=== PATIENT | female | born 1930 | race Caucasian/White ===

== ENCOUNTER 2016-08-05 13:07 | Inpatient (IN) | payer MEDICARE ==
[2016-08-05 13:54] LABS: ABSOLUTE EOSINOPHILS # (AUTO) 0.6 10^3/uL (0.0-0.6); ABSOLUTE LYMPHOCYTES (AUTO) 1.9 10^3/uL (0.5-4.7); ABSOLUTE MONOCYTES (AUTO) 1.2 10^3/uL (0.1-1.4); ABSOLUTE NEUT (AUTO) 5.3 10^3/uL (1.7-8.2); BASOPHILS % (AUTO) 0.4 % (0-2); EOSINOPHILS % (AUTO) 6.4 % (0-6); HEMATOCRIT 37.8 % (36.0-47.0); HEMOGLOBIN 12.2 g/dL (12.0-15.5); HGB HCT DIFFERENCE -1.2; LYMPHOCYTES % (AUTO) 21.4 % (13-45); MEAN CORPUSCULAR HEMOGLOBIN 32.4 pg (27.0-33.4); MEAN CORPUSCULAR HGB CONC 32.3 g/dL (32.0-36.0); MEAN CORPUSCULAR VOLUME 100 fl (80-97); MONOCYTES % (AUTO) 13.5 % (3-13); RED BLOOD COUNT 3.76 10^6/uL (3.72-5.28); RED CELL DISTRIBUTION WIDTH 15.5 % (11.5-14.0); SEGMENTED NEUTROPHILS % (AUTO) 58.3 % (42-78)
[2016-08-05 13:57] LABS: PARTIAL THROMBOPLASTIN TIME 24.1 SEC (23.5-35.8); PROTHROMBIN TIME 13.5 SEC (11.4-15.4)
--- NOTE | 2016-08-05 14:04 | ER Document Report ---
ED General - General Chief Complaint: Weakness Stated Complaint: WEAKNESS Time seen by provider: 13:59 Mode of Arrival: Medic Information source: Patient, Relative Notes: This is an 84-year-old female brought into the emergency room by EMS as a stroke alert. It is unclear when the patient was last seen normal. Another family member was to get her up at 8:30 to go to spiritism, she did not feel well enough to go. Later on when the family went to get her up for lunch at approximately 12:30, they noticed she was weak in the left upper extremity and falling to the left. EMS reports that the family was saying she was not using her left hand initially. EMS reports that she started using the left hand for them and the symptoms seem to be improving. Note: At baseline, patient normally ambulates with a walker. TRAVEL OUTSIDE OF THE [place] IN LAST 30 DAYS: No - HPI Onset: This morning Onset/Duration: Sudden Quality of pain: No pain Severity: None Pain Level: Denies Associated symptoms: denies: Chest pain, Fever, Shortness of breath Exacerbated by: Denies Relieved by: Denies Similar symptoms previously: Yes Recently seen / treated by doctor: No - Related Data Allergies/Adverse Reactions: No Known Allergies Allergy (Verified 11/27/15 19:41) Home Medications: Current Home Medications Aspirin [Aspirin EC] 81 mg PO DAILY 08/05/16 [History] Cyanocobalamin (Vitamin B-12) [Vitamin B-12] 2,500 mcg SL DAILY 08/05/16 [ History] Hydralazine HCl [Apresoline 50 mg Tablet] 100 mg PO BID 08/05/16 [History] Metoprolol Succinate 50 mg PO DAILY 08/05/16 [History] Phenytoin Sodium Extended [Dilantin 100 mg Capsule.er] 100 mg PO BID 08/05/16 [ History] Phenytoin Sodium Extended [Dilantin] 2 cap PO QHS 08/05/16 [History] Zolpidem Tartrate [Ambien Cr] 12.5 mg PO QHS 08/05/16 [History] Past Medical History - General Information source: Patient, Relative - Social History Smoking Status: Never Smoker Cigarette use (# per day): No Chew tobacco use (# tins/day): No Frequency of alcohol use: None Drug Abuse: None Lives with: Family Family History: Hypertension - Past Medical History Cardiac Medical History: Reports: Hx Hypercholesterolemia, Hx Hypertension, Hx Heart Murmur - Mitral valve prolapse Denies: Hx Congestive Heart Failure, Hx DVT, Hx Heart Attack, Hx Pulmonary Embolism Pulmonary Medical History: Denies: Hx Asthma, Hx COPD Neurological Medical History: Reports: Hx Seizures Endocrine Medical History: Denies: Hx Diabetes Mellitus Type 1, Hx Diabetes Mellitus Type 2, Hx Hyperthyroidism, Hx Hypothyroidism Malignancy Medical History: Reports: Hx Breast Cancer - Status post lumpectomy for same GI Medical History: Denies: Hx Cirrhosis, Hx Gastroesophageal Reflux Disease, Hx Hepatitis Musculoskeltal Medical History: Reports Hx Arthritis Psychiatric Medical History: Reports: Hx Anxiety, Hx Dementia, Hx Depression Infectious Medical History: Denies: Hx Hepatitis Past Surgical History: Reports: Hx Breast Surgery, Hx Hysterectomy, Other - Lumpectomy for breast carcinoma. Excision of facial skin lesions. - Immunizations Hx Diphtheria, Pertussis, Tetanus Vaccination: Yes - 2009 Hx Pneumococcal Vaccination: 03/22/16 Review of Systems - Review of Systems Constitutional: denies: Chills, Fever EENT: No symptoms reported Cardiovascular: No symptoms reported Respiratory: No symptoms reported Gastrointestinal: No symptoms reported Genitourinary: No symptoms reported Female Genitourinary: No symptoms reported Musculoskeletal: No symptoms reported Skin: No symptoms reported Hematologic/Lymphatic: No symptoms reported Neurological/Psychological: See HPI Physical Exam - Vital signs Vitals: Pulse Resp BP Pulse Ox 84 20 138/58 H 97 08/05/16 13:10 08/05/16 13:10 08/05/16 13:10 08/05/16 13:10 Notes: Physical exam: GENERAL: 86-year-old female, alert and oriented 3, no acute distress HEAD: Atraumatic, normocephalic. EYES: Pupils equal round and reactive to light, extraocular movements intact, sclera anicteric, conjunctiva are normal. ENT: TMs normal, nares patent, oropharynx clear without exudates. Moist mucous membranes. NECK: Normal range of motion, supple without lymphadenopathy or JVD. LUNGS: Breath sounds clear to auscultation bilaterally and equal. No wheezes rales or rhonchi. HEART: Regular rate and rhythm without murmurs, rubs or gallops. ABDOMEN: Soft, nontender, normoactive bowel sounds. No guarding, no rebound. No masses appreciated. EXTREMITIES: Normal range of motion, no pitting or edema. No clubbing or cyanosis. NEUROLOGICAL: Cranial nerves II through XII grossly intact. 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 She is able to describe the picture, her speech clarity is good, there is no extinction. NIH score is 5 PSYCH: Normal mood, normal affect. SKIN: Warm, Dry, normal turgor, no rashes or lesions noted. Course - Re-evaluation Re-evalutation: 08/05/16 14:04 Note: Patient is not a candidate for thrombolytics based upon improvement of symptoms and at time of onset that does not appear to be within the last 3 hours. In fact, it is very difficult to actually know what the time of onset was. I've discussed the risks of such treatment with the family and advised them that it would be too risky for little benefit. They seem to be satisfied with this. - Vital Signs Vital signs: Temp Pulse Resp BP Pulse Ox 97.7 F 71 20 114/80 97 08/05/16 22:06 08/05/16 22:06 08/05/16 22:06 08/05/16 22:06 08/05/16 22:06 - Laboratory Result Diagrams: 08/05/16 13:37 08/05/16 13:37 Laboratory results interpreted by me: 08/05/16 08/05/16 13:37 13:37 MCV 100 H RDW 15.5 H Monocytes % 13.5 H Eosinophils % 6.4 H Sodium 146.6 H BUN 28 H Est GFR (Non-Af Amer) 52 L Glucose 184 H AST 37 H - Diagnostic Test Radiology reviewed: Image reviewed, Reports reviewed - CT reveals small vessel disease, no acute stroke or bleed - EKG Interpretation by Me Rate: Normal Rhythm: NSR - EKG shows normal sinus rhythm with a ventricular rate of 72, no acute ST-T wave changes Critical Care Note - Critical Care Note Total time excluding time spent on procedures (mins): 60 Discharge - Discharge Clinical Impression: acute stroke Condition: Serious Disposition: ADMITTED INPATIENT Admitting Provider: Hospitalist - Dr. Simpson on Unit Admitted: Telemetry
[2016-08-05 14:07] LABS: ALANINE AMINOTRANSFERASE 52 U/L (9-52); ALKALINE PHOSPHATASE 87 U/L (38-126); ANION GAP 13 (5-19); ASPARTATE AMINO TRANSFERASE 37 U/L (14-36); BILIRUBIN,TOTAL 0.2 mg/dL (0.2-1.3); BLOOD UREA NITROGEN 28 mg/dL (7-20); CALCIUM 9.6 mg/dL (8.4-10.2); CARBON DIOXIDE 28 mmol/L (22-30); CHLORIDE 106 mmol/L (98-107); CREATINE KINASE 58 U/L (30-135); CREATININE RESULT 1.01 mg/dL (0.52-1.25); GLUCOSE 184 mg/dL (75-110); POTASSIUM 4.1 mmol/L (3.6-5.0); SODIUM 146.6 mmol/L (137-145); TOTAL PROTEIN 7.2 g/dL (6.3-8.2)
[2016-08-05 14:41] LABS: CREATINE KINASE MB 1.14 ng/mL (<4.55); TROPONIN I < 0.012 ng/mL
[2016-08-05] MEDS ORDERED: ACETAMINOPHEN 650 MG SUPP.RECT PR PRN (17:23)
[2016-08-05] MEDS ORDERED: ONDANSETRON HCL INJ/PF 4 MG/2 ML SDV IV PRN (17:23)
[2016-08-05] MEDS ORDERED: ASPIRIN 300 MG SUPP, RECTAL PR SCH (17:30)
--- NOTE | 2016-08-05 17:56 | PDOC H&P ---
History of Present Illness Admission Date/PCP: 08/05/16 17:16 DELISA MCLEAN Patient complains of: Left-sided weakness History of Present Illness: GISELLE PUTNAM is a 86 year old female with prior history of stroke in the past as well as hypertension, hyperlipidemia, seizure disorder, mitral valve prolapse , dementia brought to the emergency room because all left-sided weakness. The patient is unable to provide history due to underlying cognitive dysfunction. Information obtained from the family was at bedside. Patient apparently was unable to get up in bed early this morning due to weakness. Family went to restorationist and when they came back patient was noted to have left-sided weakness and falling on her left side. There is no reported slurring of speech but patient has choking which she had chronically for a while. No facial symmetry reported. No seizure episode was noted. The patient was brought to the emergency room for evaluation. CT scan of the brain did not reveal any acute abnormality. Systolic blood pressures greater than 190. The patient was then referred for admission. When the patient was asked she reports she is fine and wanted to go home. She voiced no complaints. Due to underlying dementia, patient is very unreliable. Past Medical History Cardiac Medical History: Reports: Hyperlipidema, Hypertension, Heart Murmur - Mitral valve prolapse Denies: Congestive Heart Failure, DVT, Myocardial Infarction, Pulmonary Embolism Pulmonary Medical History: Denies: Asthma, Chronic Obstructive Pulmonary Disease (COPD) Neurological Medical History: Reports: Seizures Endocrine Medical History: Denies: Diabetes Mellitus Type 1, Diabetes Mellitus Type 2, Hyperthyroidism, Hypothyroidism Malignancy Medical History: Reports: Breast Cancer - Status post lumpectomy for same GI Medical History: Denies: Cirrhosis, Gastroesophageal Reflux Disease, Hepatitis Musculoskeltal Medical History: Reports: Arthritis Psychiatric Medical History: Reports: Dementia, Depression Past Surgical History Past Surgical History: Reports: Hysterectomy, Other - Lumpectomy for breast carcinoma. Excision of facial skin lesions. Social History Lives with: Family Smoking Status: Never Smoker Frequency of Alcohol Use: None Hx Recreational Drug Use: No Drugs: None Hx Prescription Drug Abuse: No Family History Family History: Hypertension Parental Family History Reviewed: Yes Children Family History Reviewed: Yes Sibling(s) Family History Reviewed.: Yes Medication/Allergy Home Medications: Donepezil HCl 5 mg PO QHS 06/14/15 Escitalopram Oxalate 10 mg PO DAILY 06/14/15 Memantine HCl [Namenda 10 mg Tablet] 10 mg PO BID 06/14/15 Nifedipine [Procardia XL 60 mg Tablet] 60 mg PO DAILY 06/14/15 Atorvastatin Calcium [Lipitor 20 mg Tablet] 20 mg PO QHS #30 tablet 06/21/15 Cyanocobalamin (Vitamin B-12) [Vitamin B-12 1000 mcg Tablet] 1,000 mcg PO [id number] 08/05/16 Cyanocobalamin (Vitamin B-12) [Vitamin B-12] 2,500 mcg PO DAILY 08/05/16 Hydralazine HCl [Apresoline 50 mg Tablet] 100 mg PO BID 08/05/16 Metoprolol Succinate 50 mg PO DAILY 08/05/16 Phenytoin Sodium Extended [Dilantin 100 mg Capsule.er] 100 mg PO BID 08/05/16 Phenytoin Sodium Extended [Dilantin] 1 cap PO BID 08/05/16 Allergies/Adverse Reactions: No Known Allergies Allergy (Verified 11/27/15 19:41) Review of Systems ROS unobtainable: Due to mental status - I ordered an provided by the family at bedside no other noted complaints. Patient is ambulating with assistance with a walker at baseline. Physical Exam Vital Signs: Temp Pulse Resp BP Pulse Ox 97.8 F 69 20 191/68 H 97 08/05/16 16:10 08/05/16 16:11 08/05/16 16:11 08/05/16 16:11 08/05/16 16:11 General appearance: PRESENT: no acute distress, cooperative, obese Head exam: PRESENT: atraumatic, normocephalic Eye exam: PRESENT: conjunctival injection - Mild bilateral no drainage however. , EOMI, PERRLA - Sluggish bilateral, other - Arcus senilis Ear exam: PRESENT: normal external ear exam. ABSENT: drainage Mouth exam: PRESENT: moist, neck supple, tongue midline Throat exam: ABSENT: post pharyngeal erythema, tonsillar erythema, tonsillar exudate Neck exam: ABSENT: carotid bruit, JVD, thyromegaly Respiratory exam: PRESENT: clear to auscultation martita - Anteriorly, unlabored. ABSENT: crackles, rhonchi, wheezes Cardiovascular exam: PRESENT: RRR, systolic murmur - Faint 2/6 in the left sternal border. ABSENT: diastolic murmur, gallop, tachycardia Pulses: PRESENT: normal dorsalis pedis pul Vascular exam: PRESENT: normal capillary refill GI/Abdominal exam: PRESENT: normal bowel sounds, soft. ABSENT: distended, mass , organolmegaly, tenderness Rectal exam: PRESENT: deferred Extremities exam: PRESENT: +1 edema Neurological exam: PRESENT: alert, awake, CN II-XII grossly intact, motor sensory deficit - Mild weakness about 4 minus over 5 both left upper and lower extremity.. ABSENT: oriented to person, oriented to place, oriented to time, oriented to situation Psychiatric exam: PRESENT: anxious - Slightly Focused psych exam: ABSENT: restlessness Skin exam: PRESENT: dry, warm. ABSENT: cyanosis, jaundice Results Impressions: Chest X-Ray 08/05/16 13:13 IMPRESSION: NO ACUTE RADIOGRAPHIC FINDING IN THE CHEST. Head CT 08/05/16 13:13 IMPRESSION: CHRONIC CHANGES OF ATROPHY AND MICROVASCULAR ISCHEMIA. NO ACUTE PROCESS. Assessment & Plan - Diagnosis (1) CVA (cerebral vascular accident) Qualifiers: CVA mechanism: occlusion Precerebral and cerebral artery: unspecified cerebral artery Qualified Code(s): I63.50 - Cerebral infarction due to unspecified occlusion or stenosis of unspecified cerebral artery Is this a current diagnosis for this admission?: Yes (2) Hyperglycemia Is this a current diagnosis for this admission?: Yes (3) Reactive airway disease Qualifiers: Asthma severity: unspecified severity Asthma complication type: uncomplicated Qualified Code(s): J45.909 - Unspecified asthma, uncomplicated Is this a current diagnosis for this admission?: Yes (4) Uncontrolled hypertension Is this a current diagnosis for this admission?: Yes (5) Dementia Qualifiers: Dementia type: unspecified type Dementia behavioral disturbance: without behavioral disturbance Qualified Code(s): F03.90 - Unspecified dementia without behavioral disturbance Is this a current diagnosis for this admission?: Yes (6) Mitral valve prolapse Is this a current diagnosis for this admission?: Yes (7) Anemia Qualifiers: Anemia type: B12 deficiency Vitamin B12 deficiency anemia type: unspecified B12 deficiency Qualified Code(s): D51.9 - Vitamin B12 deficiency anemia, unspecified Is this a current diagnosis for this admission?: Yes (8) Hyperlipidemia Qualifiers: Hyperlipidemia type: unspecified Qualified Code(s): E78.5 - Hyperlipidemia, unspecified Is this a current diagnosis for this admission?: Yes (9) Seizure disorder Is this a current diagnosis for this admission?: Yes (10) Anxiety Is this a current diagnosis for this admission?: Yes - Time Time Spent: 50 to 70 Minutes Anticipated discharge: SNF Within: within 72 hours - Inpatient Certification Based on my medical assessment, after consideration of the patient's comorbidities, presenting symptoms, or acuity I expect that the services needed warrant INPATIENT care.: Yes I certify that my determination is in accordance with my understanding of Medicare's requirements for reasonable and necessary INPATIENT services [42 CFR 412.3e].: Yes Medical Necessity: Significant Comorbidiites Make Outpatient Treatment Too Risky , Need Close Monitoring Due to Risk of Patient Decompensation, Need for Neurological Checks Post Hospital Care: D/C Blending Machine Feeder Documentation - Plan Summary Plan Summary: The patient will be admitted to telemetry. We will obtain MRI of the brain. Physical therapy and speech therapy would be instituted. I will keep the patient nothing by mouth pending swallowing about. Reportedly she failed swallowing screen in the emergency room. We will begin aspirin suppositories. As needed hydralazine and labetalol will be given for systolic blood pressure greater than 180. Supplemental oxygen will be given. DVT prophylaxis with Lovenox will be made. We will obtain fasting lipids as well as hemoglobin A1c. Further testing depends on initial evaluation as outlined above.
--- NOTE | 2016-08-05 18:34 | EKG REPORT ---
SEVERITY:- NORMAL ECG - SINUS RHYTHM : Confirmed by: Kiana Chan MD 05-Aug-2016 18:33:56
[2016-08-05] MEDS ORDERED: ASPIRIN 300 MG SUPP, RECTAL PR ONE (19:45)
[2016-08-05] MEDS: PHENYTOIN SODIUM INJ/PF 100 MG/2 ML SDV IV SCH (22:44)
[2016-08-05] MEDS: HYDRALAZINE HCL INJ/PF 20 MG/1 ML SDV IV PRN (23:01)
[2016-08-05] MEDS: FAMOTIDINE 20 MG TABLET PO SCH (23:05)
[2016-08-05 23:34] LABS: APPEARANCE,URINE SLIGHTLY-CLOUDY; BILIRUBIN,URINE NEGATIVE (NEGATIVE); GLUCOSE, URINE NEGATIVE (NEGATIVE); KETONES,URINE NEGATIVE (NEGATIVE); LEUKOCYTE ESTERASE,URINE TRACE (NEGATIVE); NITRITE,URINE POSITIVE (NEGATIVE); PROTEIN,URINE 30 mg/dL (NEGATIVE); URINE SPECIFIC GRAVITY 1.023; UROBILINOGEN,URINE NEGATIVE mg/dL (<2.0)
[2016-08-06] MEDS: PHENYTOIN SODIUM INJ/PF 100 MG/2 ML SDV IV SCH ×2 (06:40→13:13)
[2016-08-06] MEDS: HYDRALAZINE HCL INJ/PF 20 MG/1 ML SDV IV PRN (06:40)
[2016-08-06 06:51] LABS: ANION GAP 12 (5-19); BLOOD UREA NITROGEN 21 mg/dL (7-20); CARBON DIOXIDE 28 mmol/L (22-30); CHLORIDE 105 mmol/L (98-107); CHOLESTEROL 165.81 mg/dL (0-200); CREATININE RESULT 0.77 mg/dL (0.52-1.25); Direct HDL 51 mg/dL (>40); GLUCOSE 120 mg/dL (75-110); POTASSIUM 3.8 mmol/L (3.6-5.0); SODIUM 144.6 mmol/L (137-145); TRIGLYCERIDES 80 mg/dL (<150)
[2016-08-06 07:02] LABS: DIRECT LDL 96 mg/dL (<100)
[2016-08-06] MEDS ORDERED: LORAZEPAM 1 MG TABLET PO PRN (09:04)
[2016-08-06] MEDS ORDERED: ASPIRIN 300 MG SUPP, RECTAL PR SCH (10:00)
[2016-08-06] MEDS: ENOXAPARIN SODIUM INJ 40 MG/0.4 ML DISP.SYRIN SUBCUT SCH (10:49)
[2016-08-06] MEDS: FAMOTIDINE 20 MG TABLET PO SCH ×2 (10:52→22:41)
[2016-08-06] MEDS ORDERED: LORAZEPAM INJ 2 MG/1 ML VIAL ONE (11:18)
--- NOTE | 2016-08-06 11:48 | Physician Advisory Note ---
Physician Advisor ProgressNote .: [facility] to the [facility], I have reviewed the medical record for this patient. Physician Advisor Statement: Please consider documenting, if you agree: 1. "Acute Rt-sided thrombotic [or ...] MCA artery CVA with cerebral infarction , with Lt nondominant hemiparesis, ___ [resolved or improved or persistent] " 2. "Acute mild hypernatremia, likely due to intravascular volume depletion" 3. Do you believe pt had "hypertensive emergency" or "hypertensive urgency" present? - If pt has sBP 180+ &/or dBP 110+ , without associated sx, then "HTNive urgency" is now the accepted term. If pt has sBP 180+ &/or dBP 110+ , & sx of possible organ damage, such as CHAN, CP , SOB, acute exac of CHF, acute neuro sx ..., then "Hypertensive emergency" is now the accepted term. Status: Pt w/CVA/Lt hemiparesis, dysphagia that failed bedside swallow both in ED & again for ST today. Remains NPO, needing further evaluation of swallow with MBSS - . BPs as high as 198/60 on 08/06, after ranging 114/80 - 204/64 on 08/05, so not hemodynamically stable. Ordered for tele monitoring, IV Dilantin, MN ASA, neuro checks, I/Os, aspiration precautions, O2, continuous pulse ox monitoring, NPO, PRNs IV for BP. Not safe for d/c from hospital yet, likely to need at least a 2nd MN of evaluation, monitoring, & care. Meds being given parenterally only. May need IVF shortly if not able to take po's safely. Appropriate for Inpt status. CK
[2016-08-06] MEDS ORDERED: LORAZEPAM INJ 2 MG/1 ML VIAL IV PRN (11:55)
--- NOTE | 2016-08-06 12:55 | ST Inp Modified Barium Swallow ---
Medical Diagnosis - Medical Diagnoses Medical Diagnosis Description & ICD-10 Code(s): s/sx of aspiration - ICD-10 Tx Diagnosis Coding (1) Dysphagia, oropharyngeal phase ICD-10 Code(s): R13.12 - DYSPHAGIA, OROPHARYNGEAL PHASE Inpatient MBS - General Date: 08/06/16 Date of Onset: 08/05/16 - History History Obtained From: Patient -: Medical - CVA, left sided weakness, choking, reactive airway disease, uncontrolled HTN, anxiety. currently NPO, chest xray WNL. Head CT shows chronic changes, no acute process. Failed nursing swallow screen. Previous MBSS completed 06/21/15 showed delayed swallow and mild residuals. PMHx: CVA, HTN, seizure disorder, mitral valve prolapse, dementia, breast CA, arthritis, depression. Medications: Medications Reviewed Allergies: Refer to medical record - Subjective Current Nutritional Means: NPO Current PO Diet: N/A (NPO) Current Symptoms: Coughing Pain: 0/5 - Objective Assessment: Upright, Left Lateral - Food Trials Food Trials Used: Thin liquids, [place] thick liquids, Pureed, Soft solids The Patient: fed by ST - Assessment Labial Function: Impaired - impaired seal Lingual Function: Within Functional Limits Mandibular Function: Impaired - weak Dentition: Partial Velo-Pharyngeal Function: Unremarkable Laryngeal Function: Volitional Cough, Volitional Swallow - Pharyngeal Stage Initiation of Pharyngeal Stage: Delayed Reflex Delay Time (seconds): 2 Decreased Laryngeal Elevation: Yes - mild Reduced Pressure Generation: Yes - mild Reduced Tongue Base Retraction: Yes - mild Pre-Swallowing Pooling in Valleculae: Moderate - on thin and nectar Pre-Swallowing Pooling in Pyriforms: Moderate - on thin and nectar Reduced Thyro-Hyiod Approximation: Yes - mild Reduced Epiglottic Excursion: No Reduced Pharyngeal Peristalsis: No Post Swallow Residuals in Valleculae: None Post Swallow Residuals in Pyriforms: Mild - trace on thin, trace-mild on nectar - Impression/Summary Laryngeal Penetration: Yes - on nectar, Flash, Silent, during swallow Tracheal Aspiration: no Patient Presents With: Oral-Pharyngeal dysph. - mild-moderate Risk of Aspiration: Moderate - mild-moderate - Recommendations NPO: no Solid Diet Recommendations: Mechanical Soft, Ground Meat Liquid Diet Recommendations: Thin Strict Aspitarion Precautions: Yes Dysphagia Therapy with RADAR MECHANIC: No - due to cognitive status Recommended Techniques: Fully Upright During Meal, Med Crushed in Applesauce - if able, Small Bites and Sips, Alternate Bites/Sips Supervision: requires assistance Other Recommendations: 1) DIET: recommend mech soft ground meats and thin liquids- NO straws. 2) Aspiration precautions. 3) Alternate bites and sips to aid in clearing residuals. 4) Pills crushed, if able. SUMMARY: Premature spillage on thin and nectar to level of pyriforms. No aspiration observed during study, however penetration of nectar seen. Increased residuals of nectar in pharynx when compared to thin liquids. Trace to mild residuals of soft solids on base of tongue, alternating bites and sips observed to aid in clearing residuals. ST contacted MD regarding recommendations, physician in agreement and provided ST with telephone order for diet. ST to sign off at this time. - Time Total Time: 15 Total Timed Minutes: 0 ST F.L. Impairment Category - Rationale Based On Rationale Based On: Clin Find., Obj Measures - Swallowing Current G8996: CJ 20-39% Impaired Goal G8997: CJ 20-39% Impaired Discharge G8998: CJ 20-39% Impaired
--- NOTE | 2016-08-06 13:46 | PDOC PROGRESS REPORT ---
Subjective Progress Note for:: 08/06/16 Subjective:: Intermittent swallowing difficulty but able to tolerate a dysphagia diet after modified barium swallow study. Brain MRI positive for acute stroke. Left upper extremity weakness improved. Left lower extremity weakness about the same. No reported new weakness. No chills or fever. No chest pain denies any nausea or vomiting. Physical Exam Vital Signs: Temp Pulse Resp BP Pulse Ox 97.3 F 78 20 135/89 H 95 08/06/16 13:23 08/06/16 13:23 08/06/16 13:23 08/06/16 13:23 08/06/16 13:23 Pulse Oximeter Continuous Start: 08/05/16 17: 26 Freq: RTQ4 Status: Active Document 08/06/16 08:30 [facility] [place]Rec: 08/06/16 11:02 [facility] [email or web address] Pulse Oximetry Assessment Oxygen Saturation (92-100) 97 Oxygen Delivery Method Room Air Fraction of Inspired Oxygen (FIO2) 21 Equipment Usage Equipment in Use Continuous SpO2 Machine # N 3 Intake & Output 08/05/16 08/06/16 08/07/16 06:59 06:59 06:59 Intake Total 0 Output Total 775 300 Balance -775 -300 Weight 62.7 kg General appearance: PRESENT: no acute distress, cooperative Head exam: PRESENT: normocephalic Eye exam: PRESENT: conjunctival injection, EOMI Mouth exam: PRESENT: moist, neck supple Neck exam: ABSENT: JVD Respiratory exam: PRESENT: clear to auscultation martita Cardiovascular exam: PRESENT: RRR. ABSENT: gallop GI/Abdominal exam: PRESENT: hypoactive bowel sounds, soft. ABSENT: distended, tenderness Extremities exam: PRESENT: other - Trace edema pretibial bilateral Neurological exam: PRESENT: alert, awake, other - Left upper/lower extremity weakness of 4- over 5 Skin exam: PRESENT: dry, warm. ABSENT: cyanosis Results Laboratory Results: 08/06/16 06:15 08/05/16 08/06/16 22:20 06:15 Sodium 144.6 Potassium 3.8 Chloride 105 Carbon Dioxide 28 Anion Gap 12 BUN 21 H Creatinine 0.77 Est GFR ( Amer) > 60 Est GFR (Non-Af Amer) > 60 Glucose 120 H Calcium 9.0 Triglycerides 80 Cholesterol 165.81 LDL Cholesterol Direct 96 VLDL Cholesterol 16.0 HDL Cholesterol 51 Urine Color YELLOW Urine Appearance SLIGHTLY-CLOUDY Urine pH 5.0 Ur Specific [place] 1.023 Urine Protein 30 H Urine Glucose (UA) NEGATIVE Urine Ketones NEGATIVE Urine Blood SMALL H Urine Nitrite POSITIVE H Ur Leukocyte Esterase TRACE H Urine WBC (Auto) 2 Urine RBC (Auto) 4 Impressions: Chest X-Ray 08/05/16 13:13 IMPRESSION: NO ACUTE RADIOGRAPHIC FINDING IN THE CHEST. Head CT 08/05/16 13:13 IMPRESSION: CHRONIC CHANGES OF ATROPHY AND MICROVASCULAR ISCHEMIA. NO ACUTE PROCESS. Carotid Doppler Study 08/06/16 00:00 IMPRESSION: NO HEMODYNAMICALLY SIGNIFICANT STENOSIS. Head MRI 08/06/16 09:17 IMPRESSION: Acute, nonhemorrhagic infarct right MCA distribution. Assessment & Plan - Diagnosis (1) CVA (cerebral vascular accident) Qualifiers: CVA mechanism: occlusion Precerebral and cerebral artery: unspecified cerebral artery Qualified Code(s): I63.50 - Cerebral infarction due to unspecified occlusion or stenosis of unspecified cerebral artery Is this a current diagnosis for this admission?: Yes (2) Hyperglycemia Is this a current diagnosis for this admission?: Yes (3) Reactive airway disease Qualifiers: Asthma severity: unspecified severity Asthma complication type: uncomplicated Qualified Code(s): J45.909 - Unspecified asthma, uncomplicated Is this a current diagnosis for this admission?: Yes (4) Uncontrolled hypertension Is this a current diagnosis for this admission?: Yes (5) Dementia Qualifiers: Dementia type: unspecified type Dementia behavioral disturbance: without behavioral disturbance Qualified Code(s): F03.90 - Unspecified dementia without behavioral disturbance Is this a current diagnosis for this admission?: Yes (6) Mitral valve prolapse Is this a current diagnosis for this admission?: Yes (7) Anemia Qualifiers: Anemia type: B12 deficiency Vitamin B12 deficiency anemia type: unspecified B12 deficiency Qualified Code(s): D51.9 - Vitamin B12 deficiency anemia, unspecified Is this a current diagnosis for this admission?: Yes (8) Hyperlipidemia Qualifiers: Hyperlipidemia type: unspecified Qualified Code(s): E78.5 - Hyperlipidemia, unspecified Is this a current diagnosis for this admission?: Yes (9) Seizure disorder Is this a current diagnosis for this admission?: Yes (10) Anxiety Is this a current diagnosis for this admission?: Yes - Time Time Spent with patient: 25-34 minutes - Plan Summary Plan Summary: We will resume oral medications. We will continue to hold antihypertensive medications however. We will add Aggrenox and begin diet as per speech therapy recommendation. Physical therapy and consult party planner for subacute rehabilitation. We will resume antiepileptic medications as well and discontinued the intravenous form.
[2016-08-06] MEDS: PHENYTOIN SODIUM EXTENDED 100 MG CAPSULE PO SCH (18:07)
[2016-08-06] MEDS: LABETALOL HCL INJ 20 MG/4 ML DISP.SYRIN IV PRN (20:37)
[2016-08-06] MEDS ORDERED: PHENYTOIN SODIUM PO SCH (22:00)
[2016-08-06] MEDS: ASPIRIN/DIPYRIDAMOLE 25-200 MG 1 CAP.SR CPMP.12HR PO SCH (22:40)
[2016-08-06] MEDS: DONEPEZIL HCL 5 MG TABLET PO SCH (22:42)
[2016-08-06] MEDS: ATORVASTATIN CALCIUM 20 MG TABLET PO SCH (22:42)
[2016-08-07] MEDS: FAMOTIDINE 20 MG TABLET PO SCH ×2 (09:19→23:12)
[2016-08-07] MEDS: ENOXAPARIN SODIUM INJ 40 MG/0.4 ML DISP.SYRIN SUBCUT SCH (09:19)
[2016-08-07] MEDS: PHENYTOIN SODIUM EXTENDED 100 MG CAPSULE PO SCH ×2 (09:19→18:40)
[2016-08-07] MEDS: ASPIRIN/DIPYRIDAMOLE 25-200 MG 1 CAP.SR CPMP.12HR PO SCH ×2 (09:19→23:13)
[2016-08-07] MEDS: ASPIRIN 81 MG TABLET, ENT COATED PO SCH (09:19)
[2016-08-07] MEDS: LABETALOL HCL INJ 20 MG/4 ML DISP.SYRIN IV PRN (09:20)
--- NOTE | 2016-08-07 10:59 | PDOC PROGRESS REPORT ---
Subjective Progress Note for:: 08/07/16 Subjective:: Patient denies any complaints. Physical Exam Vital Signs: Temp Pulse Resp BP Pulse Ox 97.4 F 76 19 191/62 H 97 08/07/16 07:53 08/07/16 07:53 08/07/16 07:53 08/07/16 07:53 08/07/16 07:53 Pulse Oximeter Continuous Start: 08/05/16 17: 26 Freq: RTQ4 Status: Active Document 08/07/16 04:00 [facility] (Rec: 08/07/16 04:01 [facility] [email or web address]) Pulse Oximetry Assessment Equipment Usage Equipment Standby Continuous SpO2 Machine # [id number] Intake & Output 08/06/16 08/07/16 08/08/16 06:59 06:59 06:59 Intake Total 593 Output Total 775 1025 Balance -775 -432 Weight 62.7 kg 66.1 kg General appearance: PRESENT: no acute distress Eye exam: PRESENT: conjunctiva pink, other - Minimal purulent drainage Mouth exam: PRESENT: moist, tongue midline Neck exam: ABSENT: carotid bruit, JVD Respiratory exam: PRESENT: clear to auscultation martita. ABSENT: rales, rhonchi, wheezes Cardiovascular exam: PRESENT: RRR. ABSENT: diastolic murmur, rubs, systolic murmur GI/Abdominal exam: PRESENT: normal bowel sounds, soft. ABSENT: distended, guarding, mass, organolmegaly, rebound, tenderness Extremities exam: ABSENT: calf tenderness, clubbing, pedal edema Neurological exam: PRESENT: alert, awake, oriented to person, oriented to place , motor sensory deficit - Strength is 4 out of 5 in the left upper and lower extremity. Psychiatric exam: PRESENT: appropriate affect Skin exam: PRESENT: dry, intact, warm. ABSENT: cyanosis, rash Results Laboratory Results: 08/06/16 06:15 Impressions: Chest X-Ray 08/05/16 13:13 IMPRESSION: NO ACUTE RADIOGRAPHIC FINDING IN THE CHEST. Head CT 08/05/16 13:13 IMPRESSION: CHRONIC CHANGES OF ATROPHY AND MICROVASCULAR ISCHEMIA. NO ACUTE PROCESS. Carotid Doppler Study 08/06/16 00:00 IMPRESSION: NO HEMODYNAMICALLY SIGNIFICANT STENOSIS. Modified Barium Swallow 08/06/16 00:00 IMPRESSION: TRACE LARYNGEAL PENETRATION WITH THIN AND NECTAR THICK LIQUIDS. NO ASPIRATION SEEN. PLEASE SEE SPEECH PATHOLOGIST REPORT FOR OTHER FINDINGS AND RECOMMENDATIONS. Head MRI 08/06/16 09:17 IMPRESSION: Acute, nonhemorrhagic infarct right MCA distribution. Assessment & Plan - Diagnosis (1) CVA (cerebral vascular accident) Qualifiers: CVA mechanism: occlusion Precerebral and cerebral artery: unspecified cerebral artery Qualified Code(s): I63.50 - Cerebral infarction due to unspecified occlusion or stenosis of unspecified cerebral artery Is this a current diagnosis for this admission?: YesPlan: Patient continues to have minimal left-sided weakness now. The MRI does confirm the acute CVA. The patient is on Aggrenox. We'll continue physical therapy and await the family's decision on where to send her for rehabilitation. (2) HTN (hypertension) Qualifiers: Hypertension type: essential hypertension Qualified Code(s): I10 - Essential (primary) hypertension Is this a current diagnosis for this admission?: YesPlan: Blood pressure continues to remain high. Will add on Norvasc. (3) Hyperglycemia Is this a current diagnosis for this admission?: YesPlan: Blood sugars have been slightly high. We'll continue to monitor. (4) Reactive airway disease Qualifiers: Asthma severity: unspecified severity Asthma complication type: uncomplicated Qualified Code(s): J45.909 - Unspecified asthma, uncomplicated Is this a current diagnosis for this admission?: YesPlan: No evidence for wheezing today on exam. (5) Dementia Qualifiers: Dementia type: unspecified type Dementia behavioral disturbance: without behavioral disturbance Qualified Code(s): F03.90 - Unspecified dementia without behavioral disturbance Is this a current diagnosis for this admission?: Yes (6) Anxiety Is this a current diagnosis for this admission?: YesPlan: Stable. (7) B12 deficiency anemia Is this a current diagnosis for this admission?: YesPlan: Patient's hemoglobin is stable. (8) Mitral valve prolapse Is this a current diagnosis for this admission?: YesPlan: Asymptomatic. (9) Anemia Qualifiers: Anemia type: B12 deficiency Vitamin B12 deficiency anemia type: unspecified B12 deficiency Qualified Code(s): D51.9 - Vitamin B12 deficiency anemia, unspecified Is this a current diagnosis for this admission?: YesPlan: Patient has a history of vitamin B12 deficiency. Hemoglobin is stable. (10) Hyperlipidemia Qualifiers: Hyperlipidemia type: unspecified Qualified Code(s): E78.5 - Hyperlipidemia, unspecified Is this a current diagnosis for this admission?: YesPlan: Continue Lipitor. (11) Seizure disorder Is this a current diagnosis for this admission?: YesPlan: Continue Dilantin. The patient has not had any seizures. (12) Conjunctivitis Is this a current diagnosis for this admission?: YesPlan: We'll start Cipro eyedrops. - Time Time Spent with patient: 25-34 minutes - Inpatient Certification Medical Necessity: Need for Neurological Checks - Plan Summary Plan Summary: Awaiting placement in a halfway facility for rehabilitation.
[2016-08-07] MEDS ORDERED: CIPROFLOXACIN HCL 0.3% OPH OINTMENT 3.5 GM OU ONE (11:30)
[2016-08-07] MEDS ORDERED: AMLODIPINE BESYLATE 5 MG TABLET PO ONE (11:30)
[2016-08-07] MEDS: DONEPEZIL HCL 5 MG TABLET PO SCH (23:12)
[2016-08-07] MEDS: ATORVASTATIN CALCIUM 20 MG TABLET PO SCH (23:12)
[2016-08-07] MEDS: CIPROFLOXACIN HCL 0.3% OPH OINTMENT 3.5 GM OU SCH (23:45)
[2016-08-08 05:11] LABS: ABSOLUTE BASOPHILS # (AUTO) 0.1 10^3/uL (0.0-0.2); ABSOLUTE EOSINOPHILS # (AUTO) 0.6 10^3/uL (0.0-0.6); ABSOLUTE LYMPHOCYTES (AUTO) 1.9 10^3/uL (0.5-4.7); ABSOLUTE NEUT (AUTO) 5.3 10^3/uL (1.7-8.2); BASOPHILS % (AUTO) 0.6 % (0-2); EOSINOPHILS % (AUTO) 6.5 % (0-6); HEMATOCRIT 33.1 % (36.0-47.0); HEMOGLOBIN 11.2 g/dL (12.0-15.5); HGB HCT DIFFERENCE 0.5; LYMPHOCYTES % (AUTO) 21.7 % (13-45); MEAN CORPUSCULAR HEMOGLOBIN 33.2 pg (27.0-33.4); MEAN CORPUSCULAR HGB CONC 33.9 g/dL (32.0-36.0); MEAN CORPUSCULAR VOLUME 98 fl (80-97); MONOCYTES % (AUTO) 11.7 % (3-13); RED BLOOD COUNT 3.38 10^6/uL (3.72-5.28); RED CELL DISTRIBUTION WIDTH 14.5 % (11.5-14.0); SEGMENTED NEUTROPHILS % (AUTO) 59.5 % (42-78); WHITE BLOOD COUNT 8.9 10^3/uL (4.0-10.5)
[2016-08-08 05:26] LABS: ANION GAP 11 (5-19); BLOOD UREA NITROGEN 18 mg/dL (7-20); CALCIUM 9.4 mg/dL (8.4-10.2); CARBON DIOXIDE 25 mmol/L (22-30); CHLORIDE 104 mmol/L (98-107); CREATININE RESULT 0.86 mg/dL (0.52-1.25); GLUCOSE 120 mg/dL (75-110); POTASSIUM 3.8 mmol/L (3.6-5.0)
[2016-08-08] MEDS: ENOXAPARIN SODIUM INJ 40 MG/0.4 ML DISP.SYRIN SUBCUT SCH (08:50)
[2016-08-08] MEDS: PHENYTOIN SODIUM EXTENDED 100 MG CAPSULE PO SCH ×2 (10:40→22:54)
[2016-08-08] MEDS: ASPIRIN 81 MG TABLET, ENT COATED PO SCH (10:41)
[2016-08-08] MEDS: ASPIRIN/DIPYRIDAMOLE 25-200 MG 1 CAP.SR CPMP.12HR PO SCH ×2 (10:41→22:53)
[2016-08-08] MEDS: AMLODIPINE BESYLATE 5 MG TABLET PO SCH (10:41)
[2016-08-08] MEDS: CIPROFLOXACIN HCL 0.3% OPH OINTMENT 3.5 GM OU SCH ×2 (10:41→23:10)
[2016-08-08] MEDS: FAMOTIDINE 20 MG TABLET PO SCH ×2 (10:41→22:54)
--- NOTE | 2016-08-08 11:46 | PDOC PROGRESS REPORT ---
Subjective Progress Note for:: 08/08/16 Subjective:: Patient denies any complaints. Physical Exam Vital Signs: Temp Pulse Resp BP Pulse Ox 98.1 F 84 18 177/53 H 95 08/08/16 07:37 08/08/16 08:00 08/08/16 08:00 08/08/16 08:00 08/08/16 08:00 Pulse Oximeter Continuous Start: 08/05/16 17: 26 Freq: RTQ4 Status: Active Document 08/08/16 08:00 [facility] (Rec: 08/08/16 10:52 [facility] [email or web address]) Pulse Oximetry Assessment Oxygen Saturation (92-100) 94 Oxygen Delivery Method Room Air Fraction of Inspired Oxygen (FIO2) 21 Equipment Usage Equipment Discontinued Continuous SpO2 Machine # -- Intake & Output 08/07/16 08/08/16 08/09/16 06:59 06:59 06:59 Intake Total 593 3212 Output Total 1025 3775 Balance -432 -563 Weight 66.1 kg 66.5 kg General appearance: PRESENT: no acute distress, well-developed, well-nourished Eye exam: PRESENT: conjunctiva pink. ABSENT: scleral icterus Mouth exam: PRESENT: moist, tongue midline Neck exam: ABSENT: JVD Respiratory exam: PRESENT: clear to auscultation martita. ABSENT: rales, rhonchi, wheezes Cardiovascular exam: PRESENT: RRR. ABSENT: diastolic murmur, rubs, systolic murmur GI/Abdominal exam: PRESENT: normal bowel sounds, soft. ABSENT: distended, guarding, mass, organolmegaly, rebound, tenderness Extremities exam: ABSENT: calf tenderness, clubbing, pedal edema Neurological exam: PRESENT: alert, awake, oriented to person, oriented to place , oriented to time, oriented to situation, other - Strength is slightly decreased in the left upper and lower extremity. Psychiatric exam: PRESENT: other - Confused this morning. Skin exam: PRESENT: dry, intact, warm. ABSENT: cyanosis, rash Results Laboratory Results: 08/08/16 04:32 08/08/16 04:32 08/08/16 08/08/16 04:32 04:32 WBC 8.9 RBC 3.38 L Hgb 11.2 L Hct 33.1 L MCV 98 H MCH 33.2 MCHC 33.9 RDW 14.5 H Plt Count 168 Seg Neutrophils % 59.5 Lymphocytes % 21.7 Monocytes % 11.7 Eosinophils % 6.5 H Basophils % 0.6 Absolute Neutrophils 5.3 Absolute Lymphocytes 1.9 Absolute Monocytes 1.0 Absolute Eosinophils 0.6 Absolute Basophils 0.1 Sodium 140.0 Potassium 3.8 Chloride 104 Carbon Dioxide 25 Anion Gap 11 BUN 18 Creatinine 0.86 Est GFR ( Amer) > 60 Est GFR (Non-Af Amer) > 60 Glucose 120 H Calcium 9.4 Impressions: Chest X-Ray 08/05/16 13:13 IMPRESSION: NO ACUTE RADIOGRAPHIC FINDING IN THE CHEST. Head CT 08/05/16 13:13 IMPRESSION: CHRONIC CHANGES OF ATROPHY AND MICROVASCULAR ISCHEMIA. NO ACUTE PROCESS. Carotid Doppler Study 08/06/16 00:00 IMPRESSION: NO HEMODYNAMICALLY SIGNIFICANT STENOSIS. Modified Barium Swallow 08/06/16 00:00 IMPRESSION: TRACE LARYNGEAL PENETRATION WITH THIN AND NECTAR THICK LIQUIDS. NO ASPIRATION SEEN. PLEASE SEE SPEECH PATHOLOGIST REPORT FOR OTHER FINDINGS AND RECOMMENDATIONS. Head MRI 08/06/16 09:17 IMPRESSION: Acute, nonhemorrhagic infarct right MCA distribution. Assessment & Plan - Diagnosis (1) CVA (cerebral vascular accident) Qualifiers: CVA mechanism: occlusion Precerebral and cerebral artery: unspecified cerebral artery Qualified Code(s): I63.50 - Cerebral infarction due to unspecified occlusion or stenosis of unspecified cerebral artery Is this a current diagnosis for this admission?: YesPlan: Patient continues to have minimal left-sided weakness now. The MRI does confirm the acute CVA. The patient is on Aggrenox. We'll continue physical therapy and await the family's decision on where to send her for rehabilitation. (2) HTN (hypertension) Qualifiers: Hypertension type: essential hypertension Qualified Code(s): I10 - Essential (primary) hypertension Is this a current diagnosis for this admission?: YesPlan: Blood pressure continues to remain high. Norvasc was started yesterday. (3) Hyperglycemia Is this a current diagnosis for this admission?: YesPlan: Blood sugars have been slightly high. We'll continue to monitor. (4) Reactive airway disease Qualifiers: Asthma severity: unspecified severity Asthma complication type: uncomplicated Qualified Code(s): J45.909 - Unspecified asthma, uncomplicated Is this a current diagnosis for this admission?: YesPlan: No evidence for wheezing today on exam. (5) Dementia Qualifiers: Dementia type: unspecified type Dementia behavioral disturbance: without behavioral disturbance Qualified Code(s): F03.90 - Unspecified dementia without behavioral disturbance Is this a current diagnosis for this admission?: YesPlan: Patient is pleasantly confused. (6) Anxiety Is this a current diagnosis for this admission?: YesPlan: Stable. (7) B12 deficiency anemia Is this a current diagnosis for this admission?: YesPlan: Patient's hemoglobin is stable. (8) Mitral valve prolapse Is this a current diagnosis for this admission?: YesPlan: Asymptomatic. (9) Anemia Qualifiers: Anemia type: B12 deficiency Vitamin B12 deficiency anemia type: unspecified B12 deficiency Qualified Code(s): D51.9 - Vitamin B12 deficiency anemia, unspecified Is this a current diagnosis for this admission?: YesPlan: Patient has a history of vitamin B12 deficiency. Hemoglobin is stable. (10) Hyperlipidemia Qualifiers: Hyperlipidemia type: unspecified Qualified Code(s): E78.5 - Hyperlipidemia, unspecified Is this a current diagnosis for this admission?: YesPlan: Continue Lipitor. (11) Seizure disorder Is this a current diagnosis for this admission?: YesPlan: Continue Dilantin. The patient has not had any seizures. (12) Conjunctivitis Is this a current diagnosis for this admission?: YesPlan: Continue Cipro eyedrops. - Time Time Spent with patient: 25-34 minutes - Inpatient Certification Medical Necessity: Need for Neurological Checks - Plan Summary Plan Summary: Will be discharged to rehabilitation when a bed becomes available.
[2016-08-08] MEDS: ATORVASTATIN CALCIUM 20 MG TABLET PO SCH (22:54)
[2016-08-08] MEDS: DONEPEZIL HCL 5 MG TABLET PO SCH (22:54)
[2016-08-09] MEDS: ENOXAPARIN SODIUM INJ 40 MG/0.4 ML DISP.SYRIN SUBCUT SCH (08:45)
[2016-08-09] MEDS: HYDRALAZINE HCL INJ/PF 20 MG/1 ML SDV IV PRN (09:01)
[2016-08-09] MEDS: CIPROFLOXACIN HCL 0.3% OPH OINTMENT 3.5 GM OU SCH ×2 (10:38→22:56)
[2016-08-09] MEDS: PHENYTOIN SODIUM EXTENDED 100 MG CAPSULE PO SCH ×2 (10:38→22:56)
[2016-08-09] MEDS: ASPIRIN/DIPYRIDAMOLE 25-200 MG 1 CAP.SR CPMP.12HR PO SCH ×2 (10:38→22:56)
[2016-08-09] MEDS: AMLODIPINE BESYLATE 5 MG TABLET PO SCH (10:38)
[2016-08-09] MEDS: FAMOTIDINE 20 MG TABLET PO SCH ×2 (10:38→22:56)
[2016-08-09] MEDS: ASPIRIN 81 MG TABLET, ENT COATED PO SCH (10:38)
--- NOTE | 2016-08-09 14:19 | PDOC PROGRESS REPORT ---
Subjective Progress Note for:: 08/09/16 Subjective:: Patient denies any complaints. Physical Exam Vital Signs: Temp Pulse Resp BP Pulse Ox 97.2 F 108 H 20 167/60 H 96 08/09/16 11:36 08/09/16 11:36 08/09/16 11:36 08/09/16 11:36 08/09/16 11:36 Pulse Oximeter Continuous Start: 08/05/16 17: 26 Freq: Status: Active Document 08/09/16 08:40 [facility] (Rec: 08/09/16 08:41 [facility] [email or web address]) Pulse Oximetry Assessment Oxygen Saturation (92-100) 96 Oxygen Delivery Method Room Air Equipment Usage Equipment Discontinued Continuous SpO2 Machine # - Intake & Output 08/08/16 08/09/16 08/10/16 06:59 06:59 06:59 Intake Total 3212 460 222 Output Total 3775 1550 100 Balance -563 -1090 122 Weight 66.5 kg 65.5 kg General appearance: PRESENT: no acute distress Eye exam: PRESENT: conjunctiva pink. ABSENT: scleral icterus Ear exam: PRESENT: normal external ear exam Mouth exam: PRESENT: moist, tongue midline Neck exam: ABSENT: JVD Respiratory exam: PRESENT: clear to auscultation martita. ABSENT: rales, rhonchi, wheezes Cardiovascular exam: PRESENT: RRR. ABSENT: diastolic murmur, rubs, systolic murmur GI/Abdominal exam: PRESENT: normal bowel sounds, soft. ABSENT: distended, guarding, mass, organolmegaly, rebound, tenderness Extremities exam: ABSENT: calf tenderness, clubbing, pedal edema Neurological exam: PRESENT: oriented to person, oriented to place, other - Mild left-sided weakness.. ABSENT: oriented to time, oriented to situation Psychiatric exam: PRESENT: appropriate affect Skin exam: PRESENT: dry, intact, warm. ABSENT: cyanosis, rash Results Laboratory Results: 08/08/16 04:32 08/08/16 04:32 Impressions: Chest X-Ray 08/05/16 13:13 IMPRESSION: NO ACUTE RADIOGRAPHIC FINDING IN THE CHEST. Head CT 08/05/16 13:13 IMPRESSION: CHRONIC CHANGES OF ATROPHY AND MICROVASCULAR ISCHEMIA. NO ACUTE PROCESS. Carotid Doppler Study 08/06/16 00:00 IMPRESSION: NO HEMODYNAMICALLY SIGNIFICANT STENOSIS. Modified Barium Swallow 08/06/16 00:00 IMPRESSION: TRACE LARYNGEAL PENETRATION WITH THIN AND NECTAR THICK LIQUIDS. NO ASPIRATION SEEN. PLEASE SEE SPEECH PATHOLOGIST REPORT FOR OTHER FINDINGS AND RECOMMENDATIONS. Head MRI 08/06/16 09:17 IMPRESSION: Acute, nonhemorrhagic infarct right MCA distribution. Assessment & Plan - Diagnosis (1) CVA (cerebral vascular accident) Qualifiers: CVA mechanism: occlusion Precerebral and cerebral artery: unspecified cerebral artery Qualified Code(s): I63.50 - Cerebral infarction due to unspecified occlusion or stenosis of unspecified cerebral artery Is this a current diagnosis for this admission?: YesPlan: Patient continues to have minimal left-sided weakness now. The MRI does confirm the acute CVA. The patient is on Aggrenox. We'll continue physical therapy and await a rehabilitation bed to become available. (2) HTN (hypertension) Qualifiers: Hypertension type: essential hypertension Qualified Code(s): I10 - Essential (primary) hypertension Is this a current diagnosis for this admission?: YesPlan: Blood pressure continues to remain high. Norvasc was started yesterday. (3) Hyperglycemia Is this a current diagnosis for this admission?: YesPlan: Blood sugars have been slightly high. We'll continue to monitor. (4) Reactive airway disease Qualifiers: Asthma severity: unspecified severity Asthma complication type: uncomplicated Qualified Code(s): J45.909 - Unspecified asthma, uncomplicated Is this a current diagnosis for this admission?: YesPlan: No evidence for wheezing today on exam. (5) Dementia Qualifiers: Dementia type: unspecified type Dementia behavioral disturbance: without behavioral disturbance Qualified Code(s): F03.90 - Unspecified dementia without behavioral disturbance Is this a current diagnosis for this admission?: YesPlan: Patient is pleasantly confused. (6) Anxiety Is this a current diagnosis for this admission?: YesPlan: Stable. (7) B12 deficiency anemia Is this a current diagnosis for this admission?: YesPlan: Patient's hemoglobin is stable. (8) Mitral valve prolapse Is this a current diagnosis for this admission?: YesPlan: Asymptomatic. (9) Anemia Qualifiers: Anemia type: B12 deficiency Vitamin B12 deficiency anemia type: unspecified B12 deficiency Qualified Code(s): D51.9 - Vitamin B12 deficiency anemia, unspecified Is this a current diagnosis for this admission?: YesPlan: Patient has a history of vitamin B12 deficiency. Hemoglobin is stable. (10) Hyperlipidemia Qualifiers: Hyperlipidemia type: unspecified Qualified Code(s): E78.5 - Hyperlipidemia, unspecified Is this a current diagnosis for this admission?: YesPlan: Continue Lipitor. (11) Seizure disorder Is this a current diagnosis for this admission?: YesPlan: Continue Dilantin. The patient has not had any seizures. (12) Conjunctivitis Is this a current diagnosis for this admission?: YesPlan: Continue Cipro eyedrops. - Time Time Spent with patient: 15-24 minutes - Plan Summary Plan Summary: Awaiting for a rehabilitation bed to become available
[2016-08-09] MEDS: DONEPEZIL HCL 5 MG TABLET PO SCH (22:56)
[2016-08-09] MEDS: ATORVASTATIN CALCIUM 20 MG TABLET PO SCH (22:56)
[2016-08-10] MEDS: HYDRALAZINE HCL INJ/PF 20 MG/1 ML SDV IV PRN (05:43)
[2016-08-10] MEDS: ENOXAPARIN SODIUM INJ 40 MG/0.4 ML DISP.SYRIN SUBCUT SCH (08:36)
[2016-08-10] MEDS: AMLODIPINE BESYLATE 5 MG TABLET PO SCH (10:45)
--- NOTE | 2016-08-10 10:45 | PDOC DISCHARGE SUMMARY ---
General - Admit/Disc Date/PCP Admission Date/Primary Care Provider: 08/05/16 17:23 DELISA CARIDAD Discharge Date: 08/10/16 - Discharge Diagnosis (1) CVA (cerebral vascular accident) Is this a current diagnosis for this admission?: YesSummary: MRI shows an acute right MCA distribution nonhemorrhagic infarction. Patient is being discharged on Aggrenox. Patient had carotid Dopplers which were unremarkable for any significant stenosis. (2) HTN (hypertension) Is this a current diagnosis for this admission?: Yes (3) Hyperglycemia Is this a current diagnosis for this admission?: Yes (4) Reactive airway disease Is this a current diagnosis for this admission?: Yes (5) Dementia Is this a current diagnosis for this admission?: Yes (6) Anxiety Is this a current diagnosis for this admission?: Yes (7) B12 deficiency anemia Is this a current diagnosis for this admission?: Yes (8) Mitral valve prolapse Is this a current diagnosis for this admission?: Yes (9) Anemia Is this a current diagnosis for this admission?: Yes (10) Hyperlipidemia Is this a current diagnosis for this admission?: Yes (11) Seizure disorder Is this a current diagnosis for this admission?: Yes (12) Conjunctivitis Is this a current diagnosis for this admission?: YesSummary: Treated with Cipro eyedrops. - Additional Information Discharge Diet: Cardiac - mechanical soft Discharge Activity: Activity As Tolerated Home Medications: Donepezil HCl 5 mg PO QHS 06/14/15 Escitalopram Oxalate 10 mg PO DAILY 06/14/15 Memantine HCl [Namenda 10 mg Tablet] 10 mg PO BID 06/14/15 Nifedipine [Procardia XL 60 mg Tablet] 60 mg PO DAILY 06/14/15 Atorvastatin Calcium [Lipitor 20 mg Tablet] 20 mg PO QHS #30 tablet 06/21/15 Cyanocobalamin (Vitamin B-12) [Vitamin B-12] 2,500 mcg SL DAILY 08/05/16 Hydralazine HCl [Apresoline 50 mg Tablet] 100 mg PO BID 08/05/16 Metoprolol Succinate 50 mg PO DAILY 08/05/16 Phenytoin Sodium Extended [Dilantin 100 mg Capsule.er] 100 mg PO BID 08/05/16 Phenytoin Sodium Extended [Dilantin] 2 cap PO QHS 08/05/16 Aspirin/Dipyridamole [Aggrenox 25 mg/200 mg Capsule SA] 1 cap.sr PO Q12 cpmp.12hr 08/10/16 Zolpidem Tartrate [Ambien Cr] 12.5 mg PO QHS PRN #30 tab.mphase 08/10/16 History of Present Illness History of Present Illness: GISELLE PUTNAM is a 86 year old female with a history of dementia and previous CVA who presented with left-sided weakness. The patient was unable to give any history because of her underlying dementia. Patient's family reported that they left for druze and she was in her usual state of health and when they returned she was complaining of left-sided weakness and unable to ambulate. Hospital Course Hospital Course: 86-year-old female with dementia who presented with left-sided weakness. The patient was found to have an acute CVA on MRI. This was a nonhemorrhagic CVA on the right MCA distribution. The patient had carotid Dopplers which showed no significant stenosis. The patient was started on Aggrenox on admission. She was monitored on telemetry and had no significant cardiac arrhythmias. Patient also was seen by physical therapy and occupational therapy as well as speech therapy. Speech therapy performed a swallowing study and they recommended mechanical soft diet with thin liquids and no use of straws. The patient has had improvement in her left-sided weakness but would benefit from rehabilitation. The patient will be discharged to [facility] for PT and OT daily 5 times per week. The patient 's other medical problems were unchanged during this hospitalization. Physical Exam Vital Signs: Temp Pulse Resp BP Pulse Ox 97.7 F 102 H 20 172/60 H 94 08/10/16 07:50 08/10/16 08:00 08/10/16 08:00 08/10/16 08:00 08/10/16 08:00 Pulse Oximeter Continuous Start: 08/05/16 17: 26 Freq: Status: Complete Document 08/09/16 08:40 [facility] (Rec: 08/09/16 08:41 [facility] [email or web address]) Pulse Oximetry Assessment Oxygen Saturation (92-100) 96 Oxygen Delivery Method Room Air Equipment Usage Equipment Discontinued Continuous SpO2 Machine # - Intake & Output 08/09/16 08/10/16 08/11/16 06:59 06:59 06:59 Intake Total 460 847 Output Total 1550 400 Balance -1090 447 Weight 65.5 kg 65.4 kg General appearance: PRESENT: no acute distress Eye exam: PRESENT: conjunctiva pink. ABSENT: scleral icterus Mouth exam: PRESENT: moist, tongue midline Neck exam: ABSENT: JVD Respiratory exam: PRESENT: clear to auscultation martita. ABSENT: rales, rhonchi, wheezes Cardiovascular exam: PRESENT: RRR. ABSENT: diastolic murmur, rubs, systolic murmur GI/Abdominal exam: PRESENT: normal bowel sounds, soft. ABSENT: distended, guarding, mass, organolmegaly, rebound, tenderness Extremities exam: ABSENT: calf tenderness, clubbing, pedal edema Neurological exam: PRESENT: awake, oriented to person, other - Mild left-sided weakness.. ABSENT: oriented to place, oriented to time, oriented to situation Psychiatric exam: PRESENT: appropriate affect Skin exam: PRESENT: dry, intact, warm. ABSENT: cyanosis, rash Results Laboratory Results: 08/08/16 04:32 08/08/16 04:32 Impressions: Chest X-Ray 08/05/16 13:13 IMPRESSION: NO ACUTE RADIOGRAPHIC FINDING IN THE CHEST. Head CT 08/05/16 13:13 IMPRESSION: CHRONIC CHANGES OF ATROPHY AND MICROVASCULAR ISCHEMIA. NO ACUTE PROCESS. Carotid Doppler Study 08/06/16 00:00 IMPRESSION: NO HEMODYNAMICALLY SIGNIFICANT STENOSIS. Modified Barium Swallow 08/06/16 00:00 IMPRESSION: TRACE LARYNGEAL PENETRATION WITH THIN AND NECTAR THICK LIQUIDS. NO ASPIRATION SEEN. PLEASE SEE SPEECH PATHOLOGIST REPORT FOR OTHER FINDINGS AND RECOMMENDATIONS. Head MRI 08/06/16 09:17 IMPRESSION: Acute, nonhemorrhagic infarct right MCA distribution. Qualifiers PATEINT BEING DISCHARGED WITH ANY OF THE FOLLOWING DIAGNOSIS?: Stroke Stroke Pt being discharged on Anti-thrombolytic therapy?: Yes Stroke Pt being discharged on Anti-coagulation therapy?: No Reason(s) for not prescribing Anti-coagulation therapy:: Procedure Contraindicated Plan Discharge Plan: Patient is to be discharged to [facility] for PT and OT rehabilitation. Time Spent: Greater than 30 Minutes
[2016-08-10] MEDS: PHENYTOIN SODIUM EXTENDED 100 MG CAPSULE PO SCH (10:46)
[2016-08-10] MEDS: ASPIRIN/DIPYRIDAMOLE 25-200 MG 1 CAP.SR CPMP.12HR PO SCH (10:46)
[2016-08-10] MEDS: FAMOTIDINE 20 MG TABLET PO SCH (10:46)
[2016-08-10] MEDS: CIPROFLOXACIN HCL 0.3% OPH OINTMENT 3.5 GM OU SCH (10:46)
[2016-08-10] MEDS: ASPIRIN 81 MG TABLET, ENT COATED PO SCH (10:46)
[2016-08-10 12:40] VITALS: BP 147/62
== END 2016-08-10 16:30 | DRG 65 ==
LOC: ER 13:07 → UNDOADMIN 17:16 → EH 17:16 → 3S 21:17
DX: I63.50 Cerebral infarction due to unspecified occlusion or stenosis of unspecified cerebral artery (principal); G81.94 Hemiplegia, unspecified affecting left nondominant side; I10 Essential (primary) hypertension; R73.9 Hyperglycemia, unspecified; J45.909 Unspecified asthma, uncomplicated; F03.90 Unspecified dementia, unspecified severity, without behavioral disturbance, psychotic disturbance, mood disturbance, and anxiety; F41.9 Anxiety disorder, unspecified; D51.9 Vitamin B12 deficiency anemia, unspecified; I34.1 Nonrheumatic mitral (valve) prolapse; E78.5 Hyperlipidemia, unspecified; G40.909 Epilepsy, unspecified, not intractable, without status epilepticus; H10.9 Unspecified conjunctivitis; M19.90 Unspecified osteoarthritis, unspecified site; F32.9 Major depressive disorder, single episode, unspecified; E78.00 Pure hypercholesterolemia, unspecified; Z79.82 Long term (current) use of aspirin; Z79.899 Other long term (current) drug therapy; Z90.710 Acquired absence of both cervix and uterus; Z82.49 Family history of ischemic heart disease and other diseases of the circulatory system
CPT/HCPCS: 36415; 51702; 70450; 70551; 71010; 74230; 80048; 80053; 80061; 80185; 81001; 82550; 82553; 82962; 83036; 84484; 85025; 85610; 85730; 90945; 93005; 93010; 93880; 94762; 99291; G8978-GP; G8979-GP; G8987-GO; G8988-GO; G8989-GO; G8996-GN; G8997-GN; G8998-GN; J0360; J1165; J1650; J2060; J3490

== ENCOUNTER 2016-09-09 13:27 | Emergency (ER) | payer MEDICARE ==
[2016-09-09] MEDS ORDERED: RINGERS SOLUTION,LACTATED 500 ML IV ONE (15:52)
--- NOTE | 2016-09-09 15:57 | ER Document Report ---
ED General - General Chief Complaint: Fever Stated Complaint: CHANGE IN RESPONSE Information source: Patient, Relative, [facility] Records Cannot obtain history due to: Dementia Notes: This is a pleasant 86-year-old female with a history of dementia who lives at home with family and caretakers who was brought by EMS after family was concerned about an episode of coughing this morning. The patient's audit director said that this morning the patient hadn't had an episode of coughing and spitting and did not seem to be acting right. This resolved quickly. The family is also concerned that the patient has not had a wet diaper since 0 3:30 this morning. They do state that she has been eating and drinking normally, and she had a normal bowel movement last night. She has had no fevers however her skin felt warm this morning. Of note, she was recently in the hospital after a TIA last month and she is currently taking Aggrenox. On my initial exam the patient is alert and conversant and states that she feels fine right now. She has no specific complaints TRAVEL OUTSIDE OF THE [place] IN LAST 30 DAYS: No - Related Data Allergies/Adverse Reactions: No Known Allergies Allergy (Verified 11/27/15 19:41) Past Medical History - General Information source: Relative, [facility] Records - Social History Smoking Status: Unknown if Ever Smoked Family History: Hypertension - Past Medical History Cardiac Medical History: Reports: Hx Hypercholesterolemia, Hx Hypertension, Hx Heart Murmur - Mitral valve prolapse Denies: Hx Congestive Heart Failure, Hx DVT, Hx Heart Attack, Hx Pulmonary Embolism Pulmonary Medical History: Denies: Hx Asthma, Hx COPD Neurological Medical History: Reports: Hx Seizures Endocrine Medical History: Denies: Hx Diabetes Mellitus Type 1, Hx Diabetes Mellitus Type 2, Hx Hyperthyroidism, Hx Hypothyroidism Malignancy Medical History: Reports: Hx Breast Cancer - Status post lumpectomy for same GI Medical History: Denies: Hx Cirrhosis, Hx Gastroesophageal Reflux Disease, Hx Hepatitis Musculoskeltal Medical History: Reports Hx Arthritis Psychiatric Medical History: Reports: Hx Anxiety, Hx Dementia, Hx Depression Infectious Medical History: Denies: Hx Hepatitis Past Surgical History: Reports: Hx Breast Surgery, Hx Hysterectomy, Other - Lumpectomy for breast carcinoma. Excision of facial skin lesions. - Immunizations Hx Diphtheria, Pertussis, Tetanus Vaccination: Yes - 2009 Hx Pneumococcal Vaccination: 03/22/16 Review of Systems - Review of Systems Notes: Family denies recent fevers, chills. -: Yes ROS unobtainable due to patient's medical condition - dementia Physical Exam - Vital signs Vitals: Temp Pulse Resp BP Pulse Ox 97.6 F 66 16 166/61 H 95 09/09/16 15:06 09/09/16 15:06 09/09/16 15:06 09/09/16 15:06 09/09/16 15:06 - Notes Notes: PHYSICAL EXAMINATION: GENERAL: Frail, elderly female, appears comfortable and smiles and says that she feels just fine. No acute distress HEAD: Atraumatic, normocephalic. EYES: Pupils equal round and reactive to light, extraocular movements intact, sclera anicteric, conjunctiva are normal. ENT: nares patent, oropharynx clear without exudates. mucous membranes somewhat dry. NECK: Normal range of motion, supple without lymphadenopathy LUNGS: Breath sounds clear to auscultation bilaterally and equal. No wheezes rales or rhonchi. HEART: Regular rate and rhythm without murmurs ABDOMEN: Soft, nontender, normoactive bowel sounds. No guarding, no rebound. No masses appreciated. EXTREMITIES: Normal range of motion, no pitting or edema NEUROLOGICAL: Cranial nerves grossly intact. Moves all 4 extremities spontaneously. Follows commands. No obvious focal Motor or sensory deficits noted. PSYCH: Normal mood, normal affect. SKIN: Warm, Dry, normal turgor, no rashes or lesions noted. Course - Re-evaluation Re-evalutation: 09/09/16 17:51 Patient was reevaluated. She was laying in bed smiling and conversant. She states that she feels just fine. We discussed her lab results and I had an in- depth discussion with her caretakers regarding her urinary tract infection. He does not show signs of pneumonia in her blood work is reassuring. She is at her baseline mental status here in the emergency department with a nonfocal neuro exam. At this point we will treat with IV Rocephin and the patient will be discharged home with oral antibiotics. She will follow up with her primary care physician. Strict return precautions were discussed to include high fever , vomiting, or any worsening symptoms or concerns. The caretakers and family were very comfortable with the plan and all questions were answered. - Vital Signs Vital signs: Temp Pulse Resp BP Pulse Ox 97.9 F 67 18 152/60 H 96 09/09/16 19:20 09/09/16 19:20 09/09/16 19:20 09/09/16 19:20 09/09/16 19:20 - Laboratory Result Diagrams: 09/09/16 13:50 09/09/16 13:50 Laboratory results interpreted by me: 09/09/16 09/09/16 09/09/16 13:50 13:50 16:30 RBC 3.57 L Hgb 11.6 L Hct 35.3 L MCV 99 H RDW 14.8 H Eosinophils % 10.9 H Absolute Eosinophils 1.0 H AST 47 H ALT 68 H Urine Nitrite POSITIVE H Ur Leukocyte Esterase MODERATE H Urine Ascorbic Acid 20 H - EKG Interpretation by Me EKG shows normal: Sinus rhythm Rate: Normal Rhythm: NSR When compared to previous EKG there are: No significant change Discharge - Discharge Clinical Impression: UTI (urinary tract infection) Qualifiers: Urinary tract infection type: site unspecified Hematuria presence: without hematuria Qualified Code(s): N39.0 - Urinary tract infection, site not specified Altered mental status, unspecified Qualifiers: Altered mental status type: unspecified Qualified Code(s): R41.82 - Altered mental status, unspecified Condition: Stable Disposition: HOME, SELF-CARE Additional Instructions: URINARY TRACT INFECTION: Your evaluation indicates that you have a urinary tract infection. This is due to germs growing in the bladder. This is a common problem. This infection usually responds quickly to antibiotics. Your antibiotic should be taken exactly as prescribed. Drink plenty of fluids -- three to four quarts a day. Occasionally, a bladder anesthetic will be prescribed to help stop the feeling of urgency until the antibiotic has a chance to clear the infection. This may cause your urine to be dark orange. Certain urine infections require a culture. If the doctor obtained a culture, the results will be back in two days. You should call to see if a change in treatment is needed. A repeat urinalysis after you finish treatment is often recommended. The physician will let you know if further testing is required. Call the doctor if you develop fever, chills, flank pain, inability to urinate, or blood in the urine. ANTIBIOTIC THERAPY: You have been given an antibiotic prescription. It's important that you take all the medication, unless instructed otherwise by your physician. Failure to complete the entire course can result in relapse of your condition. Common side effects of antibiotics include nausea, intestinal cramping, or diarrhea. Women may develop vaginal yeast infections, and babies can get yeast (thrush) in the mouth following the use of antibiotics. Contact your physician if you develop significant side effects from this medication. Allergy to this antibiotic can result in hives, wheezing, faintness, or itching. If symptoms of allergy occur, stop the medication and call the doctor. TRIMETHOPRIM-SULFA: You have been given a prescription for trimethoprim-sulfa (TMS, Septra, Bactrim). This is a combination antibiotic of the sulfa class, often used for urinary tract infections, middle ear infections, bronchitis, shigella intestinal infection, and Pneumocystis pneumonia. TMS is usually well-tolerated. Occasional side effects include nausea and decreased appetite. Septra is not recommended for infants less than two months of age. Do not take this medication if you have experienced severe side effects or allergy to sulfa medicine. You should stop this medicine at once and contact your physician if you develop any rash, joint pain, shortness of breath, bruising, or jaundice ( yellow color in the skin), or if you develop any other new or unusual symptoms. FOLLOW-UP CARE: If you have been referred to a physician for follow-up care, call the physician s office for an appointment as you were instructed or within the next two days. If you experience worsening or a significant change in your symptoms, notify the physician immediately or return to the Emergency Department at any time for re-evaluation. Follow up with primary care physician in 5-7 days for re-evaluation. Prescriptions: Sulfamethoxazole/Trimethoprim [Bactrim Ds Tablet] 1 each PO BID #14 tablet
[2016-09-09 16:35] LABS: ABSOLUTE LYMPHOCYTES (AUTO) 1.9 10^3/uL (0.5-4.7); ABSOLUTE NEUT (AUTO) 5.2 10^3/uL (1.7-8.2); BASOPHILS % (AUTO) 0.3 % (0-2); EOSINOPHILS % (AUTO) 10.9 % (0-6); HEMATOCRIT 35.3 % (36.0-47.0); HEMOGLOBIN 11.6 g/dL (12.0-15.5); HGB HCT DIFFERENCE -0.5; LYMPHOCYTES % (AUTO) 21.1 % (13-45); MEAN CORPUSCULAR HEMOGLOBIN 32.5 pg (27.0-33.4); MEAN CORPUSCULAR HGB CONC 32.9 g/dL (32.0-36.0); MEAN CORPUSCULAR VOLUME 99 fl (80-97); MONOCYTES % (AUTO) 11.3 % (3-13); RED BLOOD COUNT 3.57 10^6/uL (3.72-5.28); RED CELL DISTRIBUTION WIDTH 14.8 % (11.5-14.0); SEGMENTED NEUTROPHILS % (AUTO) 56.4 % (42-78); WHITE BLOOD COUNT 9.2 10^3/uL (4.0-10.5)
[2016-09-09 16:47] LABS: PARTIAL THROMBOPLASTIN TIME 25.6 SEC (23.5-35.8); PROTHROMBIN TIME 14.1 SEC (11.4-15.4)
[2016-09-09 16:48] LABS: ALANINE AMINOTRANSFERASE 68 U/L (9-52); ALBUMIN 3.6 g/dL (3.5-5.0); ALKALINE PHOSPHATASE 74 U/L (38-126); ANION GAP 9 (5-19); ASPARTATE AMINO TRANSFERASE 47 U/L (14-36); BILIRUBIN,TOTAL 0.3 mg/dL (0.2-1.3); BLOOD UREA NITROGEN 19 mg/dL (7-20); CALCIUM 9.5 mg/dL (8.4-10.2); CARBON DIOXIDE 29 mmol/L (22-30); CHLORIDE 103 mmol/L (98-107); CREATINE KINASE 84 U/L (30-135); CREATININE RESULT 0.88 mg/dL (0.52-1.25); GLUCOSE 109 mg/dL (75-110); POTASSIUM 4.3 mmol/L (3.6-5.0); SODIUM 140.9 mmol/L (137-145)
[2016-09-09 16:52] LABS: AMORPHOUS SEDIMENT,URINE TRACE /HPF; APPEARANCE,URINE CLOUDY; BILIRUBIN,URINE NEGATIVE (NEGATIVE); GLUCOSE, URINE NEGATIVE (NEGATIVE); KETONES,URINE NEGATIVE (NEGATIVE); LEUKOCYTE ESTERASE,URINE MODERATE (NEGATIVE); NITRITE,URINE POSITIVE (NEGATIVE); PROTEIN,URINE NEGATIVE (NEGATIVE); URINE SPECIFIC GRAVITY 1.012; UROBILINOGEN,URINE NEGATIVE mg/dL (<2.0)
[2016-09-09 17:00] LABS: CREATINE KINASE MB 1.92 ng/mL (<4.55)
[2016-09-09 17:02] LABS: TROPONIN I < 0.012 ng/mL
[2016-09-09] MEDS ORDERED: CEFTRIAXONE 1 GM/D5W RTU 50 ML IV ONE (17:47)
--- NOTE | 2016-09-09 21:53 | EKG REPORT ---
SEVERITY:- NORMAL ECG - SINUS RHYTHM : Confirmed by: Mamie Angel 09-Sep-2016 21:52:19
[2016-09-10 02:29] VITALS: BP 152/60
== END 2016-09-09 19:30 | disposition home or self-care (01) ==
LOC: ER 13:27
DX: N39.0 Urinary tract infection, site not specified (principal); F03.90 Unspecified dementia, unspecified severity, without behavioral disturbance, psychotic disturbance, mood disturbance, and anxiety; I10 Essential (primary) hypertension; Z86.73 Personal history of transient ischemic attack (TIA), and cerebral infarction without residual deficits; Z79.02 Long term (current) use of antithrombotics/antiplatelets; Z85.3 Personal history of malignant neoplasm of breast
CPT/HCPCS: 93005; 99284; 51701; 96365; 96367; 36415; 82553; 82550; 85025; 85610; 85730; 80053; 81001; 84484; 71010; 93010; J7120; J0696

== ENCOUNTER 2016-11-07 20:12 | Emergency (ER) | payer MEDICARE ==
--- NOTE | 2016-11-08 01:17 | ER Document Report ---
ED Hip Pain/Injury - General Chief Complaint: Hip Injury Stated Complaint: FALL,LEFT HIP PAIN Notes: The patient is an 86-year-old female, past medical history dementia, hypertension, presents after she slipped, fell and landed on her left hip. Her quilting machine helper is are also worried that she may have a UTI because she is having foul -smelling urine. The patient is AAO 3 and denies hip pain or dysuria. Denies fevers, numbness, tingling, headache, neck pain or open wounds. TRAVEL OUTSIDE OF THE [place] IN LAST 30 DAYS: No - Related Data Allergies/Adverse Reactions: No Known Allergies Allergy (Verified 11/27/15 19:41) Past Medical History - General Information source: Patient - Social History Smoking Status: Unknown if Ever Smoked Family History: Hypertension - Past Medical History Cardiac Medical History: Reports: Hx Hypercholesterolemia, Hx Hypertension, Hx Heart Murmur - Mitral valve prolapse Denies: Hx Congestive Heart Failure, Hx DVT, Hx Heart Attack, Hx Pulmonary Embolism Pulmonary Medical History: Denies: Hx Asthma, Hx COPD Neurological Medical History: Reports: Hx Seizures Endocrine Medical History: Denies: Hx Diabetes Mellitus Type 1, Hx Diabetes Mellitus Type 2, Hx Hyperthyroidism, Hx Hypothyroidism Renal/ Medical History: Denies: Hx Peritoneal Dialysis Malignancy Medical History: Reports: Hx Breast Cancer - Status post lumpectomy for same GI Medical History: Denies: Hx Cirrhosis, Hx Gastroesophageal Reflux Disease, Hx Hepatitis Musculoskeltal Medical History: Reports Hx Arthritis Psychiatric Medical History: Reports: Hx Anxiety, Hx Dementia, Hx Depression Infectious Medical History: Denies: Hx Hepatitis Past Surgical History: Reports: Hx Breast Surgery, Hx Hysterectomy, Other - Lumpectomy for breast carcinoma. Excision of facial skin lesions. - Immunizations Hx Diphtheria, Pertussis, Tetanus Vaccination: Yes - 2009 Hx Pneumococcal Vaccination: 03/22/16 Review of Systems - Review of Systems Notes: REVIEW OF SYSTEMS: CONSTITUTIONAL: -fevers, -chills EENT: -eye pain, -difficulty swallowing, -nasal congestion CARDIOVASCULAR:-chest pain, -syncope. RESPIRATORY: -cough, -SOB GASTROINTESTINAL: -abdominal pain, - nausea, -vomiting, -diarrhea GENITOURINARY: -dysuria, -hematuria, +malodorous urine MUSCULOSKELETAL: +left hip pain, -back pain, -neck pain SKIN: -rash or skin lesions. HEMATOLOGIC: -easy bruising or bleeding. LYMPHATIC: -swollen, enlarged glands. NEUROLOGICAL: -altered mental status or loss of consciousness, -headache, - neurologic symptoms PSYCHIATRIC: -anxiety, -depression. ALL OTHER SYSTEMS REVIEWED AND NEGATIVE. Physical Exam - Vital signs Vitals: Temp Pulse BP Pulse Ox 99.4 F 99 190/85 H 96 11/07/16 21:32 11/07/16 21:32 11/07/16 21:32 11/07/16 21:32 - Notes Notes: PHYSICAL EXAMINATION: GENERAL: Well-appearing, well-nourished and in no acute distress. HEAD: Atraumatic, normocephalic. EYES: Pupils equal round and reactive to light, extraocular movements intact, sclera anicteric, conjunctiva are normal. ENT: nares patent, oropharynx clear without exudates. Moist mucous membranes. NECK: Normal range of motion, supple without lymphadenopathy LUNGS: Breath sounds clear to auscultation bilaterally and equal. No wheezes rales or rhonchi. HEART: Regular rate and rhythm without murmurs ABDOMEN: Soft, nontender, normoactive bowel sounds. No guarding, no rebound. No masses appreciated. EXTREMITIES: Normal range of motion, no pitting or edema. No cyanosis. NEUROLOGICAL: Cranial nerves grossly intact. Normal speech, normal gait. Normal sensory, motor, and reflex exams. PSYCH: Normal mood, normal affect. SKIN: Warm, Dry, normal turgor, no rashes or lesions noted. Course - Re-evaluation Re-evalutation: Patient's hip x-ray does not show any acute fractures. She has full range of motion of her left hip. Urine does not show evidence of UTI. Will send patient home with her caretakers. - Vital Signs Vital signs: Temp Pulse Resp BP Pulse Ox 98.9 F 80 15 146/72 H 95 11/08/16 02:31 11/08/16 04:45 11/08/16 04:45 11/08/16 04:45 11/08/16 04:45 - Laboratory Laboratory results interpreted by me: 11/08/16 02:23 Urine Protein 30 H Urine Glucose (UA) 150 H Ur Leukocyte Esterase TRACE H - Diagnostic Test Radiology reviewed: Image reviewed, Reports reviewed Radiology results interpreted by me: Left hip x-ray: NAD Discharge - Discharge Clinical Impression: Contusion of hip, left Qualifiers: Encounter type: initial encounter Qualified Code(s): S70.02XA - Contusion of left hip, initial encounter Condition: Stable Disposition: HOME, SELF-CARE Additional Instructions: Your urine does not show evidence of urinary tract infection in your x-ray does not show any evidence of broken bones. Motrin and heating pads for any pain control. Follow up with her primary care physician. Contusion Your injury has resulted in a contusion -- a crushing of the deep tissues. No injury to important structures was detected during the physician's exam. Contusions vary in the amount of pain they cause, and in the length of time required for healing. Typically, the area will become bruised, and will remain painful to touch for two or three weeks. However, most patients are back to working and playing within a few days. After the initial period of rest and cold-packs, your symptoms (together with the doctor's recommendations) will determine how rapidly you can get back to full activity. Usually this means "do what feels okay, but don't do things that hurt." If re-examination was recommended, it's important to follow up as instructed. Call the doctor or return any time if pain increases, if swelling becomes severe, if you develop numbness or weakness in an injured extremity, or if any other alarming symptoms occur. Referrals: DELISA MCLEAN MD [Primary Care Provider] - Follow up as needed
[2016-11-08 02:56] LABS: AMORPHOUS SEDIMENT,URINE TRACE /HPF; APPEARANCE,URINE SLIGHTLY-CLOUDY; BILIRUBIN,URINE NEGATIVE (NEGATIVE); GLUCOSE, URINE 150 mg/dL (NEGATIVE); KETONES,URINE NEGATIVE (NEGATIVE); LEUKOCYTE ESTERASE,URINE TRACE (NEGATIVE); NITRITE,URINE NEGATIVE (NEGATIVE); PROTEIN,URINE 30 mg/dL (NEGATIVE); URINE SPECIFIC GRAVITY 1.027; UROBILINOGEN,URINE NEGATIVE mg/dL (<2.0)
[2016-11-08 05:26] VITALS: BP 146/72
== END 2016-11-08 04:49 | disposition home or self-care (01) ==
LOC: ER 20:12
DX: S70.02XA Contusion of left hip, initial encounter (principal); M25.552 Pain in left hip; F03.90 Unspecified dementia, unspecified severity, without behavioral disturbance, psychotic disturbance, mood disturbance, and anxiety; I10 Essential (primary) hypertension; W19.XXXA Unspecified fall, initial encounter
CPT/HCPCS: 51701; 81001; 99283

== ENCOUNTER 2016-11-20 11:30 | Inpatient (IN) | payer MEDICARE ==
[2016-11-20 12:03] LABS: ABSOLUTE EOSINOPHILS # (AUTO) 0.3 10^3/uL (0.0-0.6); ABSOLUTE LYMPHOCYTES (AUTO) 2.5 10^3/uL (0.5-4.7); ABSOLUTE MONOCYTES (AUTO) 1.4 10^3/uL (0.1-1.4); ABSOLUTE NEUT (AUTO) 11.3 10^3/uL (1.7-8.2); BASOPHILS % (AUTO) 0.3 % (0-2); EOSINOPHILS % (AUTO) 1.8 % (0-6); HEMATOCRIT 32.9 % (36.0-47.0); HGB HCT DIFFERENCE 0.1; MEAN CORPUSCULAR HEMOGLOBIN 32.9 pg (27.0-33.4); MEAN CORPUSCULAR HGB CONC 33.5 g/dL (32.0-36.0); MEAN CORPUSCULAR VOLUME 98 fl (80-97); MONOCYTES % (AUTO) 9.2 % (3-13); RED BLOOD COUNT 3.35 10^6/uL (3.72-5.28); RED CELL DISTRIBUTION WIDTH 14.8 % (11.5-14.0); SEGMENTED NEUTROPHILS % (AUTO) 72.7 % (42-78); WHITE BLOOD COUNT 15.6 10^3/uL (4.0-10.5)
[2016-11-20] MEDS ORDERED: NORMAL SALINE 1000 ML 1,000 ML IV ONE ×2 (12:07→14:00)
[2016-11-20 12:10] LABS: PROTHROMBIN TIME 15.9 SEC (11.4-15.4)
--- NOTE | 2016-11-20 12:14 | ER Document Report ---
ED General - General Chief Complaint: Low Blood Pressure Stated Complaint: BREATHING ISSUES Mode of Arrival: Medic Information source: Relative, Emergency Med Personnel Cannot obtain history due to: Dementia TRAVEL OUTSIDE OF THE [place] IN LAST 30 DAYS: No - HPI Patient complains to provider of: SUDDEN ONSET OF DYSPNEA WHILE BEING BATHED THIS A.M. Onset: This morning Onset/Duration: Sudden Quality of pain: No pain Associated symptoms: Productive cough, Slow to respond, Weakness. denies: Fever , Nausea, Vomiting Exacerbated by: Denies Relieved by: Denies Similar symptoms previously: Yes - NOT RECENT Recently seen / treated by doctor: No - Related Data Allergies/Adverse Reactions: No Known Allergies Allergy (Verified 11/20/16 12:07) Past Medical History - General Information source: Relative Cannot obtain history due to: Dementia - Social History Smoking Status: Never Smoker Cigarette use (# per day): No Chew tobacco use (# tins/day): No Frequency of alcohol use: None Drug Abuse: None Lives with: Family Family History: Hypertension Patient has suicidal ideation: No Patient has homicidal ideation: No - Past Medical History Cardiac Medical History: Reports: Hx Hypercholesterolemia, Hx Hypertension, Hx Heart Murmur - Mitral valve prolapse Denies: Hx Congestive Heart Failure, Hx DVT, Hx Heart Attack, Hx Pulmonary Embolism Pulmonary Medical History: Denies: Hx Asthma, Hx COPD Neurological Medical History: Reports: Hx Seizures Endocrine Medical History: Denies: Hx Diabetes Mellitus Type 1, Hx Diabetes Mellitus Type 2, Hx Hyperthyroidism, Hx Hypothyroidism Renal/ Medical History: Denies: Hx Peritoneal Dialysis Malignancy Medical History: Reports: Hx Breast Cancer - Status post lumpectomy for same GI Medical History: Denies: Hx Cirrhosis, Hx Gastroesophageal Reflux Disease, Hx Hepatitis Musculoskeltal Medical History: Reports Hx Arthritis Psychiatric Medical History: Reports: Hx Anxiety, Hx Dementia, Hx Depression Infectious Medical History: Denies: Hx Hepatitis Past Surgical History: Reports: Hx Breast Surgery, Hx Hysterectomy, Other - Lumpectomy for breast carcinoma. Excision of facial skin lesions. - Immunizations Hx Diphtheria, Pertussis, Tetanus Vaccination: Yes - 2009 Hx Pneumococcal Vaccination: 03/22/16 Review of Systems - Review of Systems Constitutional: Weakness. denies: Chills, Fever EENT: No symptoms reported Cardiovascular: No symptoms reported Respiratory: See HPI Gastrointestinal: No symptoms reported Genitourinary: No symptoms reported Female Genitourinary: Post menopausal Musculoskeletal: No symptoms reported Skin: No symptoms reported Neurological/Psychological: No symptoms reported Physical Exam - Vital signs Vitals: Temp 99.2 F 11/20/16 11:40 Interpretation: Hypotensive, Tachycardic - General General appearance: Lethargic In distress: None - HEENT Head: Normocephalic Eyes: Normal Mucous membranes: Dry - MILDLY - Respiratory Respiratory status: No respiratory distress Breath sounds: Rales - DEPENDENT AREAS - Cardiovascular Rhythm: Regular Heart sounds: Normal auscultation Murmur: No - Abdominal Inspection: Normal Tenderness: Nontender - Back Back: Normal - Extremities General upper extremity: Normal inspection General lower extremity: Normal inspection - Neurological Cognition: Confused Aleena Coma Scale Eye Opening: To Voice Aleena Coma Scale Verbal: Confused Aleena Coma Scale Motor: Localizes to Pain Aleena Coma Scale Total: 12 - Psychological Associated symptoms: Confused - Skin Skin Temperature: Warm Skin Moisture: Dry Skin Color: Normal Skin Turgor: Elastic Course - Vital Signs Vital signs: Temp Pulse Resp BP Pulse Ox 99.2 F 19 100/63 94 11/20/16 11:40 11/20/16 13:02 11/20/16 13:02 11/20/16 13:02 - Laboratory Result Diagrams: 11/20/16 11:51 11/20/16 11:51 Laboratory results interpreted by me: 11/20/16 11/20/16 11/20/16 11:51 11:51 11:51 WBC 15.6 H RBC 3.35 L Hgb 11.0 L Hct 32.9 L MCV 98 H RDW 14.8 H Absolute Neutrophils 11.3 H PT 15.9 H Glucose 147 H AST 42 H Urine Protein Urine Ketones Urine Urobilinogen Ur Leukocyte Esterase 11/20/16 11:51 WBC RBC Hgb Hct MCV RDW Absolute Neutrophils PT Glucose AST Urine Protein 30 H Urine Ketones TRACE H Urine Urobilinogen 2.0 H Ur Leukocyte Esterase SMALL H - Consults Keri MELENDEZ Time consulted: 14:12 Consulted provider: will come to ER Discharge - Discharge Clinical Impression: UTI (urinary tract infection) Qualifiers: Urinary tract infection type: site unspecified Hematuria presence: without hematuria Qualified Code(s): N39.0 - Urinary tract infection, site not specified Sepsis Qualifiers: Sepsis type: sepsis due to unspecified organism Qualified Code(s): A41.9 - Sepsis, unspecified organism Condition: Fair Disposition: ADMITTED INPATIENT Admitting Provider: Hospitalist Unit Admitted: Telemetry
[2016-11-20 12:16] LABS: VENOUS BLOOD BASE EXCESS -1.7 mmol/L; VENOUS BLOOD PCO2 38.9 mmHg (35-63); VENOUS BLOOD PH 7.39 (7.30-7.42)
[2016-11-20] MEDS ORDERED: LEVOFLOXACIN RTU 750 MG/D5W 150 ML IV ONE (12:17)
[2016-11-20 12:27] LABS: ALANINE AMINOTRANSFERASE 37 U/L (9-52); ALBUMIN 3.6 g/dL (3.5-5.0); ALKALINE PHOSPHATASE 93 U/L (38-126); ANION GAP 14 (5-19); ASPARTATE AMINO TRANSFERASE 42 U/L (14-36); BILIRUBIN,DIRECT 0.4 mg/dL (0.0-0.4); BILIRUBIN,TOTAL 0.7 mg/dL (0.2-1.3); BLOOD UREA NITROGEN 17 mg/dL (7-20); CALCIUM 9.3 mg/dL (8.4-10.2); CARBON DIOXIDE 25 mmol/L (22-30); CHLORIDE 105 mmol/L (98-107); CREATININE RESULT 0.87 mg/dL (0.52-1.25); GLUCOSE 147 mg/dL (75-110); POTASSIUM 3.8 mmol/L (3.6-5.0); TOTAL PROTEIN 7.2 g/dL (6.3-8.2)
[2016-11-20 12:36] LABS: APPEARANCE,URINE CLOUDY; BILIRUBIN,URINE NEGATIVE (NEGATIVE); GLUCOSE, URINE NEGATIVE (NEGATIVE); KETONES,URINE TRACE mg/dL (NEGATIVE); LEUKOCYTE ESTERASE,URINE SMALL (NEGATIVE); NITRITE,URINE NEGATIVE (NEGATIVE); PROTEIN,URINE 30 mg/dL (NEGATIVE); URINE SPECIFIC GRAVITY 1.021
--- NOTE | 2016-11-20 13:20 | EKG REPORT ---
SEVERITY:- ABNORMAL ECG - SINUS TACHYCARDIA MULTIPLE ATRIAL PREMATURE COMPLEXES NONSPECIFIC REPOL ABNORMALITY, DIFFUSE LEADS : Confirmed by: Matt Smith MD 20-Nov-2016 13:19:18
[2016-11-20] MEDS ORDERED: NORMAL SALINE 1000 ML 1,000 ML IV PRN (14:50)
[2016-11-20] MEDS: CEFTRIAXONE 1 GM/D5W RTU 1 GM/50 ML RTUPB IV SCH (16:02)
--- NOTE | 2016-11-20 16:35 | PDOC H&P ---
History of Present Illness Admission Date/PCP: 11/20/16 14:50 DELISA MCLEAN MD Patient complains of: Altered mental status History of Present Illness: GISELLE PUTNAM is a 86 year old female with a past medical history of cerebrovascular accident of July 2016. It is well known to the hospitalist service for previous admissions. The patient presented to the emergency department via EMS after experiencing an episode of near-syncope during her bath. According to the caregiver who is present at bedside, patient had requested breakfast this morning. The caregiver responded stating that she would base the patient first improved air her breakfast. Upon starting the bath the patient became minimally responsive, pale, and significantly diaphoretic. EMS was notified the patient was found to be hypotensive and tachycardic. Upon presentation emergency department appear the patient was uroseptic and responded to IV fluids. Given these findings the patient was referred to the hospitalist for admission and management. I called and discussed the case with Ayden Nagy the patient's son-in-law who is also her power of commercial litigation attorney. He has elected to proceed with DO NOT RESUSCITATE DO NOT INTUBATE status. He also may noted that the patient's daughter at times can be belligerent and to notify him if the daughter should arrive. Is agreeable to the daughter visiting however if she becomes disruptive with the nursing staff nursing staff have been instructed to notify him and he would have the daughter removed. Caregivers will be present at the patient's bedside. MEDICATIONS: The medications listed in this document may have been auto- populated from previous contact and may not been verified or reconciled. This may not be an accurate reflection of the patient's home medication(s); however, authors are unable to edit or delete the medications listed in this document as "home medications". Past Medical History Cardiac Medical History: Reports: Hyperlipidema, Hypertension, Heart Murmur - Mitral valve prolapse Pulmonary Medical History: Reports: Other - Reactive airway disease Neurological Medical History: Reports: Ischemic CVA - July 2016, Seizures Malignancy Medical History: Reports: Breast Cancer - Status post lumpectomy for same Musculoskeltal Medical History: Reports: Arthritis Psychiatric Medical History: Reports: Dementia, Depression, General Anxiety Disorder Hematology: Reports: Anemia Past Surgical History Past Surgical History: Reports: Hysterectomy, Other - Lumpectomy for breast carcinoma. Excision of facial skin lesions. Social History Information Source: Patient, Friend - Patient's private duty caregivers, POA - Power of Supervisor Real Estate Office, [facility] Records Lives with: Family Smoking Status: Never Smoker Frequency of Alcohol Use: None Hx Recreational Drug Use: Yes Drugs: None Hx Prescription Drug Abuse: No - Advance Directive Resuscitation Status: Do Not Resuscitate - DO NOT RESUSCITATE DO NOT INTUBATE Surrogate healthcare decision maker:: Son-in-law Ayden Canseco Family History Family History: CVA, Hypertension Parental Family History Reviewed: Yes Children Family History Reviewed: Yes Sibling(s) Family History Reviewed.: Yes Medication/Allergy Home Medications: Aspirin/Dipyridamole [Aggrenox 25 mg-200 mg Capsule] 1 cap PO BID 11/20/16 Atorvastatin Calcium [Lipitor 20 mg Tablet] 20 mg PO QHS 11/20/16 Cyanocobalamin (Vitamin B-12) [Vitamin B12] 2,500 mcg PO QAM 11/20/16 Donepezil HCl [Aricept 5 mg Tablet] 5 mg PO QHS 11/20/16 Escitalopram Oxalate [Lexapro 10 mg Tablet] 10 mg PO DAILY 11/20/16 Hydralazine HCl [Apresoline 50 mg Tablet] 100 mg PO Q12 11/20/16 Memantine HCl [Namenda 10 mg Tablet] 10 mg PO BID 11/20/16 Metoprolol Succinate [Toprol Xl 50 mg Tab.sr] 50 mg PO DAILY 11/20/16 Nifedipine [Nifedipine ER] 60 mg PO DAILY 11/20/16 Phenytoin Sodium Extended 100 mg PO BID 11/20/16 Phenytoin Sodium Extended [Dilantin] 60 mg PO DAILY 11/20/16 Zolpidem Tartrate [Ambien Cr] 12.5 mg PO HSP PRN 11/20/16 Allergies/Adverse Reactions: No Known Allergies Allergy (Verified 11/20/16 12:07) Review of Systems ROS unobtainable: Due to mental status Physical Exam Vital Signs: Temp Pulse Resp BP Pulse Ox 99.2 F 25 H 100/57 L 94 11/20/16 11:40 11/20/16 15:01 11/20/16 15:01 11/20/16 15:01 Intake & Output 11/18/16 11/19/16 11/20/16 23:59 23:59 23:59 Intake Total 2250 Balance 2250 General appearance: PRESENT: disheveled, well-nourished Exam: Frail, chronically ill-appearing Head exam: PRESENT: atraumatic, normocephalic Eye exam: PRESENT: conjunctiva pale, EOMI, PERRLA Mouth exam: PRESENT: moist, neck supple, tongue midline Neck exam: ABSENT: carotid bruit, JVD, lymphadenopathy, thyromegaly, tracheal deviation, tracheostomy Respiratory exam: PRESENT: clear to auscultation martita, symmetrical, unlabored. ABSENT: retraction, rhonchi, tachypnea, wheezes Cardiovascular exam: PRESENT: +S1, +S2, systolic murmur Pulses: PRESENT: +1 pedal pulses bilateral Vascular exam: PRESENT: pallor GI/Abdominal exam: PRESENT: normal bowel sounds. ABSENT: ascites, distended, firm, guarding, organolmegaly, tenderness Rectal exam: PRESENT: deferred Extremities exam: ABSENT: calf tenderness, clubbing, pedal edema Neurological exam: PRESENT: alert, altered - And able to fully assess orientation the patient does deny pain Psychiatric exam: PRESENT: flat affect Skin exam: PRESENT: mottled, pallor Results Laboratory Results: Labs- Last Values WBC 15.6 10^3/uL (4.0-10.5) H 11/20/16 11:51 RBC 3.35 10^6/uL (3.72-5.28) L 11/20/16 11:51 Hgb 11.0 g/dL (12.0-15.5) L 11/20/16 11:51 Hct 32.9 % (36.0-47.0) L 11/20/16 11:51 MCV 98 fl (80-97) H 11/20/16 11:51 MCH 32.9 pg (27.0-33.4) 11/20/16 11:51 MCHC 33.5 g/dL (32.0-36.0) 11/20/16 11:51 RDW 14.8 % (11.5-14.0) H 11/20/16 11:51 Plt Count 221 10^3/uL (150-450) 11/20/16 11:51 Seg Neutrophils % 72.7 % (42-78) 11/20/16 11:51 Lymphocytes % 16.0 % (13-45) 11/20/16 11:51 Monocytes % 9.2 % (3-13) 11/20/16 11:51 Eosinophils % 1.8 % (0-6) 11/20/16 11:51 Basophils % 0.3 % (0-2) 11/20/16 11:51 Absolute Neutrophils 11.3 10^3/uL (1.7-8.2) H 11/20/16 11:51 Absolute Lymphocytes 2.5 10^3/uL (0.5-4.7) 11/20/16 11:51 Absolute Monocytes 1.4 10^3/uL (0.1-1.4) 11/20/16 11:51 Absolute Eosinophils 0.3 10^3/uL (0.0-0.6) 11/20/16 11:51 Absolute Basophils 0.0 10^3/uL (0.0-0.2) 11/20/16 11:51 PT 15.9 SEC (11.4-15.4) H 11/20/16 11:51 INR 1.23 11/20/16 11:51 VBG pH 7.39 (7.30-7.42) 11/20/16 11:51 VBG pCO2 38.9 mmHg (35-63) 11/20/16 11:51 VBG HCO3 23.0 mmol/L (20-32) 11/20/16 11:51 VBG Base Excess -1.7 mmol/L 11/20/16 11:51 Sodium 144.0 mmol/L (137-145) 11/20/16 11:51 Potassium 3.8 mmol/L (3.6-5.0) 11/20/16 11:51 Chloride 105 mmol/L (98-107) 11/20/16 11:51 Carbon Dioxide 25 mmol/L (22-30) 11/20/16 11:51 Anion Gap 14 (5-19) 11/20/16 11:51 BUN 17 mg/dL (7-20) 11/20/16 11:51 Creatinine 0.87 mg/dL (0.52-1.25) 11/20/16 11:51 Est GFR ( Amer) > 60 (>60) 11/20/16 11:51 Est GFR (Non-Af Amer) > 60 (>60) 11/20/16 11:51 Glucose 147 mg/dL (75-110) H 11/20/16 11:51 Lactic Acid 1.9 mmol/L (0.7-2.1) 11/20/16 11:51 Calcium 9.3 mg/dL (8.4-10.2) 11/20/16 11:51 Total Bilirubin 0.7 mg/dL (0.2-1.3) 11/20/16 11:51 Direct Bilirubin 0.4 mg/dL (0.0-0.4) 11/20/16 11:51 Indirect Bilirubin Not Reportable 11/20/16 11:51 Neonat Total Bilirubin Not Reportable 11/20/16 11:51 AST 42 U/L (14-36) H 11/20/16 11:51 ALT 37 U/L (9-52) 11/20/16 11:51 Alkaline Phosphatase 93 U/L (38-126) 11/20/16 11:51 Total Protein 7.2 g/dL (6.3-8.2) 11/20/16 11:51 Albumin 3.6 g/dL (3.5-5.0) 11/20/16 11:51 Urine Color YELLOW 11/20/16 11:51 Urine Appearance CLOUDY 11/20/16 11:51 Urine pH 5.0 (5.0-9.0) 11/20/16 11:51 Ur Specific [place] 1.021 11/20/16 11:51 Urine Protein 30 mg/dL (NEGATIVE) H 11/20/16 11:51 Urine Glucose (UA) NEGATIVE mg/dL (NEGATIVE) 11/20/16 11:51 Urine Ketones TRACE mg/dL (NEGATIVE) H 11/20/16 11:51 Urine Blood NEGATIVE (NEGATIVE) 11/20/16 11:51 Urine Nitrite NEGATIVE (NEGATIVE) 11/20/16 11:51 Urine Bilirubin NEGATIVE (NEGATIVE) 11/20/16 11:51 Urine Urobilinogen 2.0 mg/dL (<2.0) H 11/20/16 11:51 Ur Leukocyte Esterase SMALL (NEGATIVE) H 11/20/16 11:51 Urine WBC (Auto) 77 /HPF 11/20/16 11:51 Urine RBC (Auto) 5 /HPF 11/20/16 11:51 Urine Bacteria (Auto) 1+ /HPF 11/20/16 11:51 Squamous Epi Cells Auto 6 /HPF 11/20/16 11:51 U Non-Squamous Epis Auto 2 /HPF 11/20/16 11:51 Urine Mucus (Auto) MOD /LPF 11/20/16 11:51 Urine Ascorbic Acid NEGATIVE (NEGATIVE) 11/20/16 11:51 Impressions: Chest X-Ray 11/20/16 11:42 IMPRESSION: NO ACUTE RADIOGRAPHIC FINDING IN THE CHEST. Assessment & Plan - Diagnosis (1) Urinary tract infection Qualifiers: Urinary tract infection type: site unspecified Hematuria presence: without hematuria Qualified Code(s): N39.0 - Urinary tract infection, site not specified Is this a current diagnosis for this admission?: YesPlan: Will cover with Rocephin. Will await culture and sensitivity and follow. (2) Sepsis Qualifiers: Sepsis type: sepsis due to unspecified organism Qualified Code(s): A41.9 - Sepsis, unspecified organism Is this a current diagnosis for this admission?: YesPlan: Secondary to the above will continue to gently hydrate. The patient's blood pressures have improved still remains somewhat tachycardic. (3) Dementia Qualifiers: Dementia type: unspecified type Dementia behavioral disturbance: without behavioral disturbance Qualified Code(s): F03.90 - Unspecified dementia without behavioral disturbance Is this a current diagnosis for this admission?: YesPlan: Will continue home medications. Patient does have private duty sitters. (4) Acute encephalopathy Is this a current diagnosis for this admission?: YesPlan: Secondary to a combination of the above. Since alertness RAD has improved however she is still not verbal (5) Seizure disorder Is this a current diagnosis for this admission?: YesPlan: Will continue home medications. Will obtain Dilantin level. (6) Vitamin B12 deficiency anemia Qualifiers: Vitamin B12 deficiency anemia type: unspecified B12 deficiency Qualified Code(s): D51.9 - Vitamin B12 deficiency anemia, unspecified Is this a current diagnosis for this admission?: YesPlan: This improved with supplementation. Hemoglobin has improved. Will continue to monitor (7) Anxiety Is this a current diagnosis for this admission?: YesPlan: Will continue home medications. (8) Hyperlipidemia Qualifiers: Hyperlipidemia type: unspecified Qualified Code(s): E78.5 - Hyperlipidemia, unspecified Is this a current diagnosis for this admission?: YesPlan: Will continue home medications. (9) HTN (hypertension) Qualifiers: Hypertension type: essential hypertension Qualified Code(s): I10 - Essential (primary) hypertension Is this a current diagnosis for this admission?: YesPlan: Will hold home BP meds for now - Time Time Spent: 50 to 70 Minutes Medications reviewed and adjusted accordingly: Yes Anticipated discharge: Home with Homehealth Within: within 48 hours Disposition: The patient is a DO NOT RESUSCITATE DO NOT INTUBATE. Pending patient's symptomatology and diagnostic findings will reevaluate as needed. - Inpatient Certification Based on my medical assessment, after consideration of the patient's comorbidities, presenting symptoms, or acuity I expect that the services needed warrant INPATIENT care.: Yes I certify that my determination is in accordance with my understanding of Medicare's requirements for reasonable and necessary INPATIENT services [42 CFR 412.3e].: Yes Medical Necessity: Need For IV Fluids, Need For Continuous Telemetry Monitoring , Need for IV Antibiotics Post Hospital Care: D/C or Transfer Summary
[2016-11-20] MEDS: PHENYTOIN SODIUM EXTENDED 100 MG CAPSULE PO SCH (19:00)
[2016-11-20] MEDS: MEMANTINE HCL 10 MG TABLET PO SCH (19:00)
[2016-11-20] MEDS: ASPIRIN/DIPYRIDAMOLE 25-200 MG 1 CAP.SR CPMP.12HR PO SCH (19:27)
[2016-11-20] MEDS: HEPARIN SOD (PORCINE) 5,000 UNIT/ML 1 ML SYRINGE SUBCUT SCH (23:52)
[2016-11-20] MEDS: HYDRALAZINE HCL 50 MG TABLET PO SCH (23:53)
[2016-11-20] MEDS: ATORVASTATIN CALCIUM 20 MG TABLET PO SCH (23:53)
[2016-11-21] MEDS: HEPARIN SOD (PORCINE) 5,000 UNIT/ML 1 ML SYRINGE SUBCUT SCH ×3 (06:08→23:51)
[2016-11-21 07:32] LABS: HEMATOCRIT 26.6 % (36.0-47.0); HEMOGLOBIN 9.2 g/dL (12.0-15.5); MEAN CORPUSCULAR HEMOGLOBIN 33.9 pg (27.0-33.4); MEAN CORPUSCULAR HGB CONC 34.7 g/dL (32.0-36.0); MEAN CORPUSCULAR VOLUME 98 fl (80-97); RED BLOOD COUNT 2.73 10^6/uL (3.72-5.28); RED CELL DISTRIBUTION WIDTH 14.4 % (11.5-14.0); WHITE BLOOD COUNT 12.1 10^3/uL (4.0-10.5)
[2016-11-21] MEDS ORDERED: (PENDING PHARMACY ID) (Cyanocobalamin (Vitamin B-12) [Vitamin B12] 2,500 MCG) PO SCH (08:00)
[2016-11-21 08:01] LABS: ANION GAP 12 (5-19); BLOOD UREA NITROGEN 15 mg/dL (7-20); CALCIUM 8.6 mg/dL (8.4-10.2); CARBON DIOXIDE 20 mmol/L (22-30); CHLORIDE 110 mmol/L (98-107); CREATININE RESULT 0.73 mg/dL (0.52-1.25); GLUCOSE 136 mg/dL (75-110); MAGNESIUM 1.8 mg/dL (1.6-2.3); POTASSIUM 3.8 mmol/L (3.6-5.0); SODIUM 142.3 mmol/L (137-145)
[2016-11-21] MEDS ORDERED: (PENDING PHARMACY ID) (Nifedipine [Nifedipine Er] 60 MG) PO SCH (10:00)
--- NOTE | 2016-11-21 10:55 | PDOC PROGRESS REPORT ---
Subjective Progress Note for:: 11/21/16 Subjective:: The patient is currently lying in bed. The patient's private duty caregiver is present at the bedside and active in the patient's care. The patient will awaken but is mainly moaning is unable to provide any history. Her have been no reported episodes of vomiting nor diarrhea. Blood pressures have improved as well as heart rate. The patient is unable to voice any other concerns at this time. Review of systems: The rest of the review of systems is unobtainable given the patient's mental status. Physical Exam Vital Signs: Temp Pulse Resp BP Pulse Ox 99.2 F 19 129/79 H 97 11/20/16 11:40 11/21/16 07:01 11/21/16 07:00 11/21/16 07:01 Intake & Output 11/19/16 11/20/16 11/21/16 23:59 23:59 23:59 Intake Total 2250 Balance 2250 General appearance: PRESENT: disheveled, well-nourished Exam: Frail, chronically ill-appearing Head exam: PRESENT: atraumatic, normocephalic Eye exam: PRESENT: conjunctiva pale, EOMI, PERRLA Mouth exam: PRESENT: moist, neck supple, tongue midline Neck exam: ABSENT: carotid bruit, JVD, lymphadenopathy, thyromegaly, tracheal deviation, tracheostomy Respiratory exam: PRESENT: clear to auscultation martita, symmetrical, unlabored. ABSENT: retraction, rhonchi, tachypnea, wheezes Cardiovascular exam: PRESENT: +S1, +S2, systolic murmur Pulses: PRESENT: +1 pedal pulses bilateral Vascular exam: PRESENT: pallor GI/Abdominal exam: PRESENT: normal bowel sounds. ABSENT: ascites, distended, firm, guarding, organolmegaly, tenderness Rectal exam: PRESENT: deferred Extremities exam: ABSENT: calf tenderness, clubbing, pedal edema Neurological exam: PRESENT: alert, altered - And able to fully assess orientation the patient does deny pain Psychiatric exam: PRESENT: flat affect Skin exam: PRESENT: mottled, pallor Results Laboratory Results: 11/21/16 07:17 11/21/16 07:17 11/21/16 11/21/16 07:17 07:17 WBC 12.1 H RBC 2.73 L Hgb 9.2 L Hct 26.6 L MCV 98 H MCH 33.9 H MCHC 34.7 RDW 14.4 H Plt Count 188 Sodium 142.3 Potassium 3.8 Chloride 110 H Carbon Dioxide 20 L Anion Gap 12 BUN 15 Creatinine 0.73 Est GFR ( Amer) > 60 Est GFR (Non-Af Amer) > 60 Glucose 136 H Calcium 8.6 Magnesium 1.8 Impressions: Chest X-Ray 11/20/16 11:42 IMPRESSION: NO ACUTE RADIOGRAPHIC FINDING IN THE CHEST. Assessment & Plan - Diagnosis (1) Urinary tract infection Qualifiers: Urinary tract infection type: site unspecified Hematuria presence: without hematuria Qualified Code(s): N39.0 - Urinary tract infection, site not specified Is this a current diagnosis for this admission?: YesPlan: Continue Rocephin. Will await culture and sensitivity and follow. (2) Sepsis Qualifiers: Sepsis type: sepsis due to unspecified organism Qualified Code(s): A41.9 - Sepsis, unspecified organism Is this a current diagnosis for this admission?: YesPlan: Secondary to the above which is improving. The patient's blood pressures have improved still remains somewhat tachycardic. (3) Dementia Qualifiers: Dementia type: unspecified type Dementia behavioral disturbance: without behavioral disturbance Qualified Code(s): F03.90 - Unspecified dementia without behavioral disturbance Is this a current diagnosis for this admission?: YesPlan: Will continue home medications. Patient does have private duty sitters. (4) Acute encephalopathy Is this a current diagnosis for this admission?: YesPlan: Secondary to a combination of the above. Alertness has improved but still remains confused. (5) Seizure disorder Is this a current diagnosis for this admission?: YesPlan: Will continue home medications. Dilantin levels a little low however this is okay given the patient's low albumin (6) Vitamin B12 deficiency anemia Qualifiers: Vitamin B12 deficiency anemia type: unspecified B12 deficiency Qualified Code(s): D51.9 - Vitamin B12 deficiency anemia, unspecified Is this a current diagnosis for this admission?: YesPlan: This improved with supplementation. Hemoglobin has improved. Will continue to monitor (7) Anxiety Is this a current diagnosis for this admission?: YesPlan: Will continue home medications. (8) Hyperlipidemia Qualifiers: Hyperlipidemia type: unspecified Qualified Code(s): E78.5 - Hyperlipidemia, unspecified Is this a current diagnosis for this admission?: YesPlan: Will continue home medications. (9) HTN (hypertension) Qualifiers: Hypertension type: essential hypertension Qualified Code(s): I10 - Essential (primary) hypertension Is this a current diagnosis for this admission?: YesPlan: Will hold home BP meds for now - Time Time Spent with patient: 25-34 minutes Medications reviewed and adjusted accordingly: Yes Anticipated discharge: Home Within: within 48 hours Disposition: The patient is a DO NOT RESUSCITATE DO NOT INTUBATE. Pending patient's symptomatology and diagnostic findings will reevaluate as needed.
[2016-11-21] MEDS: CYANOCOBALAMIN (VITAMIN B-12) 1,000 MCG TABLET PO SCH (11:19)
[2016-11-21] MEDS: METOPROLOL SUCCINATE 50 MG TAB.SR.24H PO SCH (11:20)
[2016-11-21] MEDS: HYDRALAZINE HCL 50 MG TABLET PO SCH ×2 (11:20→23:51)
[2016-11-21] MEDS: ASPIRIN/DIPYRIDAMOLE 25-200 MG 1 CAP.SR CPMP.12HR PO SCH ×2 (11:20→17:12)
[2016-11-21] MEDS: PHENYTOIN SODIUM EXTENDED 100 MG CAPSULE PO SCH ×2 (11:21→17:12)
[2016-11-21] MEDS: NIFEDIPINE 30 MG TAB.ER.24 PO SCH (11:21)
[2016-11-21] MEDS: CEFTRIAXONE 1 GM/D5W RTU 1 GM/50 ML RTUPB IV SCH (15:51)
[2016-11-21] MEDS: MEMANTINE HCL 10 MG TABLET PO SCH ×2 (17:05→17:12)
[2016-11-21] MEDS: ESCITALOPRAM OXALATE 10 MG TABLET PO SCH (17:05)
[2016-11-21] MEDS: ATORVASTATIN CALCIUM 20 MG TABLET PO SCH (23:49)
[2016-11-21] MEDS: DONEPEZIL HCL 5 MG TABLET PO SCH ×2 (23:50)
[2016-11-22] MEDS: HEPARIN SOD (PORCINE) 5,000 UNIT/ML 1 ML SYRINGE SUBCUT SCH ×3 (07:20→21:28)
[2016-11-22] MEDS: ESCITALOPRAM OXALATE 10 MG TABLET PO SCH (09:10)
[2016-11-22] MEDS: HYDRALAZINE HCL 50 MG TABLET PO SCH ×2 (09:10→21:29)
[2016-11-22] MEDS: MEMANTINE HCL 10 MG TABLET PO SCH ×2 (09:11→17:01)
[2016-11-22] MEDS: ASPIRIN/DIPYRIDAMOLE 25-200 MG 1 CAP.SR CPMP.12HR PO SCH ×2 (09:11→17:00)
[2016-11-22] MEDS: METOPROLOL SUCCINATE 50 MG TAB.SR.24H PO SCH (09:11)
[2016-11-22] MEDS: PHENYTOIN SODIUM EXTENDED 100 MG CAPSULE PO SCH ×2 (09:12→17:01)
[2016-11-22] MEDS: CYANOCOBALAMIN (VITAMIN B-12) 1,000 MCG TABLET PO SCH (09:12)
[2016-11-22] MEDS: NIFEDIPINE 30 MG TAB.ER.24 PO SCH (09:12)
--- NOTE | 2016-11-22 12:14 | PDOC PROGRESS REPORT ---
Subjective Progress Note for:: 11/22/16 Subjective:: The patient is currently lying in bed. The patient's private duty caregiver is present at the bedside and active in the patient's care. The patient overall appears much improved in comparison to yesterday. Her have been no reported episodes of vomiting nor diarrhea. Blood pressures have improved as well as heart rate. The patient is unable to voice any other concerns at this time. Review of systems: The rest of the review of systems is unobtainable given the patient's mental status. Physical Exam Vital Signs: Temp Pulse Resp BP Pulse Ox 98.5 F 94 16 137/75 H 95 11/22/16 08:00 11/22/16 08:00 11/22/16 08:00 11/22/16 08:00 11/22/16 08:00 Intake & Output 11/20/16 11/21/16 11/22/16 23:59 23:59 23:59 Intake Total 2250 120 3 Output Total 0 Balance 2250 120 3 Weight 58.8 kg 58.3 kg General appearance: PRESENT: disheveled, well-nourished Exam: Frail, chronically ill-appearing Head exam: PRESENT: atraumatic, normocephalic Eye exam: PRESENT: conjunctiva pale, EOMI, PERRLA Mouth exam: PRESENT: moist, neck supple, tongue midline Neck exam: ABSENT: carotid bruit, JVD, lymphadenopathy, thyromegaly, tracheal deviation, tracheostomy Respiratory exam: PRESENT: clear to auscultation martita, symmetrical, unlabored. ABSENT: retraction, rhonchi, tachypnea, wheezes Cardiovascular exam: PRESENT: +S1, +S2, systolic murmur Pulses: PRESENT: +1 pedal pulses bilateral Vascular exam: PRESENT: pallor GI/Abdominal exam: PRESENT: normal bowel sounds. ABSENT: ascites, distended, firm, guarding, organolmegaly, tenderness Rectal exam: PRESENT: deferred Extremities exam: ABSENT: calf tenderness, clubbing, pedal edema Neurological exam: PRESENT: alert, altered - And able to fully assess orientation the patient does deny pain Psychiatric exam: PRESENT: flat affect Skin exam: PRESENT: mottled, pallor Results Laboratory Results: 11/21/16 07:17 11/21/16 07:17 Impressions: Chest X-Ray 05/02/17 11:42 IMPRESSION: NO ACUTE RADIOGRAPHIC FINDING IN THE CHEST. Assessment & Plan - Diagnosis (1) Urinary tract infection Qualifiers: Urinary tract infection type: site unspecified Hematuria presence: without hematuria Qualified Code(s): N39.0 - Urinary tract infection, site not specified Is this a current diagnosis for this admission?: YesPlan: Gram-negative rods. Continue Rocephin. Will await sensitivity and follow. (2) Sepsis Qualifiers: Sepsis type: sepsis due to unspecified organism Qualified Code(s): A41.9 - Sepsis, unspecified organism Is this a current diagnosis for this admission?: YesPlan: Resolved (3) Dementia Qualifiers: Dementia type: unspecified type Dementia behavioral disturbance: without behavioral disturbance Qualified Code(s): F03.90 - Unspecified dementia without behavioral disturbance Is this a current diagnosis for this admission?: YesPlan: Will continue home medications. Patient does have private duty sitters. (4) Acute encephalopathy Is this a current diagnosis for this admission?: YesPlan: Secondary to a combination of the above. Alertness has improved but still remains confused. (5) Seizure disorder Is this a current diagnosis for this admission?: YesPlan: Will continue home medications. Dilantin levels a little low however this is okay given the patient's low albumin (6) Vitamin B12 deficiency anemia Qualifiers: Vitamin B12 deficiency anemia type: unspecified B12 deficiency Qualified Code(s): D51.9 - Vitamin B12 deficiency anemia, unspecified Is this a current diagnosis for this admission?: YesPlan: This improved with supplementation. Hemoglobin has improved. Will continue to monitor (7) Anxiety Is this a current diagnosis for this admission?: YesPlan: Will continue home medications. (8) Hyperlipidemia Qualifiers: Hyperlipidemia type: unspecified Qualified Code(s): E78.5 - Hyperlipidemia, unspecified Is this a current diagnosis for this admission?: YesPlan: Will continue home medications. (9) HTN (hypertension) Qualifiers: Hypertension type: essential hypertension Qualified Code(s): I10 - Essential (primary) hypertension Is this a current diagnosis for this admission?: YesPlan: Will continue blood pressure medicines from home. - Time Time Spent with patient: 25-34 minutes Medications reviewed and adjusted accordingly: Yes Anticipated discharge: Home with Homehealth Within: within 24 hours Disposition: The patient is a DO NOT RESUSCITATE DO NOT INTUBATE. Pending patient's symptomatology and diagnostic findings will reevaluate as needed.
--- NOTE | 2016-11-22 14:23 | Physician Advisory Note ---
Physician Advisor ProgressNote .: Pursuant to the plan for [facility], I have reviewed the medical record for this patient. Physician Advisor Statement: Please document etiology of sepsis: "Sepsis, POA, due to Grm Neg UTI" Thanks CK
[2016-11-22] MEDS: CEFTRIAXONE 1 GM/D5W RTU 1 GM/50 ML RTUPB IV SCH (17:00)
[2016-11-22] MEDS ORDERED: ACETAMINOPHEN 325 MG TABLET PO PRN (17:44)
[2016-11-22] MEDS: ATORVASTATIN CALCIUM 20 MG TABLET PO SCH (21:29)
[2016-11-22] MEDS: DONEPEZIL HCL 5 MG TABLET PO SCH (21:29)
--- NOTE | 2016-11-22 23:29 | Palliative Consultation Report ---
Consultation From:: VERÓNICA KAY - [facility] HPI: Palliaitve care visit with patient and caregiver 6:00-6:25 Pm 11/22 Appreciate palliative care consult request for this 86 year old female who lives in her home with 24 hour caregiving for dementia and weakness. According to paid caregiver in room, She as doing well although she has shown some decline in last few months. She has history of CVA which impacts her strength and she cannot walk, but was alert and able to feed herself, etc. Suddenly, one morning, she became very lethargic and caregiver called 911. She was found to have sepsis from UTI although she had not shown any symptoms. I talked with caregiver about patient having DNR order and her prognosis and what may be gradual but certain decline. Patient has pain in right hip after a fall at home and was having pain during visit. However, when we reositioned her, she fell asleep with no expression of pain. Caregiver states she ate all of her dinner. Onset: Just prior to arrival Onset/Duration: Sudden Quality of Pain: Dull Severity: Mild Exacerbated by: Movement Relieved by: Other - Repositioning Past Medical History(Consults) - General Information Source: Patient, Friend, [facility] Records Home Medications: Aspirin/Dipyridamole [Aggrenox 25 mg-200 mg Capsule] 1 cap PO BID 11/20/16 Atorvastatin Calcium [Lipitor 20 mg Tablet] 20 mg PO QHS 11/20/16 Cyanocobalamin (Vitamin B-12) [Vitamin B12] 2,500 mcg PO QAM 11/20/16 Donepezil HCl [Aricept 5 mg Tablet] 5 mg PO QHS 11/20/16 Escitalopram Oxalate [Lexapro 10 mg Tablet] 10 mg PO DAILY 11/20/16 Hydralazine HCl [Apresoline 50 mg Tablet] 100 mg PO Q12 11/20/16 Memantine HCl [Namenda 10 mg Tablet] 10 mg PO BID 11/20/16 Metoprolol Succinate [Toprol Xl 50 mg Tab.sr] 50 mg PO DAILY 11/20/16 Nifedipine [Nifedipine ER] 60 mg PO DAILY 11/20/16 Phenytoin Sodium Extended 100 mg PO BID 11/20/16 Phenytoin Sodium Extended [Dilantin] 60 mg PO DAILY 11/20/16 Zolpidem Tartrate [Ambien Cr] 12.5 mg PO HSP PRN 11/20/16 Allergies/Adverse Reactions: No Known Allergies Allergy (Verified 11/20/16 12:07) - Social History Lives with: Family Family History: CVA, Hypertension Parental Family History Reviewed: No Children Family History Reviewed: No Sibling(s) Family History Reviewed.: No Smoking Status: Never Smoker Frequency of Alcohol Use: None Hx Recreational Drug Use: No Drugs: None Hx Prescription Drug Abuse: No - Past Medical History Cardiac Medical History: Reports: Hx Hypercholesterolemia, Hx Hypertension, Hx Heart Murmur - Mitral valve prolapse Denies: Hx Congestive Heart Failure, Hx DVT, Hx Heart Attack, Hx Pulmonary Embolism Pulmonary Medical History: Reports: Other - Reactive airway disease Denies: Hx Asthma, Hx COPD EENT Medical History: Reports: None Neurological Medical History: Reports: Hx Cerebrovascular Accident, Hx Seizures Endocrine Medical History: Denies: Hx Diabetes Mellitus Type 1, Hx Diabetes Mellitus Type 2, Hx Hyperthyroidism, Hx Hypothyroidism Renal/ Medical History: Denies: Hx Peritoneal Dialysis Malignancy Medical History: Reports: Hx Breast Cancer - Status post lumpectomy for same GI Medical History: Denies: Hx Cirrhosis, Hx Gastroesophageal Reflux Disease, Hx Hepatitis Musculoskeltal Medical History: Reports Hx Arthritis Psychiatric Medical History: Reports: Hx Anxiety, Hx Dementia, Hx Depression Infectious Medical History: Denies: Hx Hepatitis Hematology: Reports: Anemia - Surgical History Past Surgical History: Reports: Hx Breast Surgery, Hx Hysterectomy, Other - Lumpectomy for breast carcinoma. Excision of facial skin lesions. Review of systems ROS unobtainable: due to mental statu Constitutional: Weakness Ojective:Exam Vital Signs: Temp Pulse Resp BP Pulse Ox 98.3 F 87 16 137/55 H 100 11/22/16 19:41 11/22/16 19:41 11/22/16 19:41 11/22/16 19:41 11/22/16 19:41 Intake & Output 11/21/16 11/22/16 11/23/16 06:59 06:59 06:59 Intake Total 2250 123 610 Output Total 0 Balance 2250 123 610 Weight 58.3 kg - General General Appearance: Alert In distress: Mild Note:: Awake, uncomfortable until repositioned. Speech easily understandable and usually appropriate. Recognized her caregiver. Said she wanted dinner but just finished dinner a few minutes before my visit. - HEENT Head: Normocephalic Pupils: PERRLA Mucous membrane: Normal, Moist - Neck Neck: Normal - Respiratory Respiratory Status: No respiratory distress - Cardiovascular Rhythm: Regular Pulses: Normal: Radial - Abdominal Inspection: Normal Distension: No distension Tenderness: Nontender - Extremities Upper extremity: Normal inspection Lower extremities: Normal inspection - Neurological Cognition: Short term memory loss Orientation: Alert, Oriented to person - Psychological Associated symptoms: Normal affect, Confused Objective-Diagnostic Laboratory: 11/21/16 07:17 11/21/16 07:17 Plan and Recommendation Plan and Recommendation: Discussed DNR and prognosis with caregiver. Caregiver is aware of decline she has ssen in patient in last few months. No pain or problems to address at present. No equipment neded at home. - Time Spent with Patient Time spent with patient: 15 to 30 Minutes Time: 25 min with patient and caregiver.
[2016-11-23] MEDS: HEPARIN SOD (PORCINE) 5,000 UNIT/ML 1 ML SYRINGE SUBCUT SCH (06:25)
[2016-11-23] MEDS ORDERED: CEFTRIAXONE 1 GM/D5W RTU 50 ML IV PRN (08:02)
[2016-11-23 08:59] VITALS: BP 132/58
[2016-11-23] MEDS: CYANOCOBALAMIN (VITAMIN B-12) 1,000 MCG TABLET PO SCH (09:36)
[2016-11-23] MEDS: METOPROLOL SUCCINATE 50 MG TAB.SR.24H PO SCH (09:36)
[2016-11-23] MEDS: NIFEDIPINE 30 MG TAB.ER.24 PO SCH (09:36)
[2016-11-23] MEDS: ASPIRIN/DIPYRIDAMOLE 25-200 MG 1 CAP.SR CPMP.12HR PO SCH (09:36)
[2016-11-23] MEDS: HYDRALAZINE HCL 50 MG TABLET PO SCH (09:37)
[2016-11-23] MEDS: PHENYTOIN SODIUM EXTENDED 100 MG CAPSULE PO SCH (09:37)
[2016-11-23] MEDS: MEMANTINE HCL 10 MG TABLET PO SCH (09:37)
[2016-11-23] MEDS: ESCITALOPRAM OXALATE 10 MG TABLET PO SCH (09:37)
--- NOTE | 2016-11-23 14:45 | PDOC DISCHARGE SUMMARY ---
General - Admit/Disc Date/PCP Admission Date/Primary Care Provider: 11/20/16 14:50 DELISA MCLEAN MD Discharge Date: 11/23/16 - Discharge Diagnosis (1) Urinary tract infection Is this a current diagnosis for this admission?: YesSummary: Escherichia coli (2) Sepsis Is this a current diagnosis for this admission?: YesSummary: Present on admission secondary to #1 and is now resolved (3) Dementia Is this a current diagnosis for this admission?: Yes (4) Acute encephalopathy Is this a current diagnosis for this admission?: YesSummary: Secondary to the above the patient is now at her baseline (5) Seizure disorder Is this a current diagnosis for this admission?: Yes (6) Vitamin B12 deficiency anemia Is this a current diagnosis for this admission?: Yes (7) Anxiety Is this a current diagnosis for this admission?: Yes (8) Hyperlipidemia Is this a current diagnosis for this admission?: Yes (9) HTN (hypertension) Is this a current diagnosis for this admission?: Yes - Additional Information Resuscitation Status: Do Not Resuscitate - DO NOT RESUSCITATE DO NOT INTUBATE Discharge Diet: As Tolerated, Regular Discharge Activity: Activity As Tolerated Home Medications: Aspirin/Dipyridamole [Aggrenox 25 mg-200 mg Capsule] 1 cap PO BID 11/20/16 Atorvastatin Calcium [Lipitor 20 mg Tablet] 20 mg PO QHS 11/20/16 Cyanocobalamin (Vitamin B-12) [Vitamin B12] 2,500 mcg PO QAM 11/20/16 Donepezil HCl [Aricept 5 mg Tablet] 5 mg PO QHS 11/20/16 Escitalopram Oxalate [Lexapro 10 mg Tablet] 10 mg PO DAILY 11/20/16 Hydralazine HCl [Apresoline 50 mg Tablet] 100 mg PO Q12 11/20/16 Memantine HCl [Namenda 10 mg Tablet] 10 mg PO BID 11/20/16 Metoprolol Succinate [Toprol Xl 50 mg Tab.sr] 50 mg PO DAILY 11/20/16 Nifedipine [Nifedipine ER] 60 mg PO DAILY 11/20/16 Phenytoin Sodium Extended 100 mg PO BID 11/20/16 Phenytoin Sodium Extended [Dilantin] 60 mg PO DAILY 11/20/16 Zolpidem Tartrate [Ambien Cr] 12.5 mg PO HSP PRN 11/20/16 Cefuroxime Axetil [Ceftin 250 mg Tablet] 1 tab PO BID #8 tablet 11/23/16 History of Present Illness Patient complains of: Altered mental status History of Present Illness: GISELLE PUTNAM is a 86 year old female with a past medical history of cerebrovascular accident of July 2016. It is well known to the hospitalist service for previous admissions. The patient presented to the emergency department via EMS after experiencing an episode of near-syncope during her bath. According to the caregiver who is present at bedside, patient had requested breakfast this morning. The caregiver responded stating that she would base the patient first improved air her breakfast. Upon starting the bath the patient became minimally responsive, pale, and significantly diaphoretic. EMS was notified the patient was found to be hypotensive and tachycardic. Upon presentation emergency department appear the patient was uroseptic and responded to IV fluids. Given these findings the patient was referred to the hospitalist for admission and management. I called and discussed the case with Ayden Nagy the patient's son-in-law who is also her power of employment law attorney. He has elected to proceed with DO NOT RESUSCITATE DO NOT INTUBATE status. He also may noted that the patient's daughter at times can be belligerent and to notify him if the daughter should arrive. Is agreeable to the daughter visiting however if she becomes disruptive with the nursing staff nursing staff have been instructed to notify him and he would have the daughter removed. Caregivers will be present at the patient's bedside. Hospital Course Hospital Course: The patient was admitted to continuous telemetry unit. Initially the patient was found to be hypotensive and tachycardic which responded nicely to volume resuscitation. Urine analysis and culture was obtained. The patient had findings suggestive of a urinary tract infection. Patient's urine culture revealed Escherichia coli that was pansensitive which was sensitive to Rocephin and the patient received antibiotic coverage 72 hours. The patient's symptoms completely resolved. Patient's mentation returned to baseline. Given the patient's rapid decline since her CVA in July, palliative care, Raya Cruz, was consult to see the patient. Physical Exam Vital Signs: Temp Pulse Resp BP Pulse Ox 97.9 F 90 18 132/58 H 93 11/23/16 08:56 11/23/16 08:56 11/23/16 08:56 11/23/16 08:56 11/23/16 08:56 Intake & Output 11/21/16 11/22/16 11/23/16 23:59 23:59 23:59 Intake Total 120 613 0 Output Total 0 1 Balance 120 613 -1 Weight 58.8 kg 58.3 kg General appearance: PRESENT: disheveled, well-nourished Exam: Frail, chronically ill-appearing Head exam: PRESENT: atraumatic, normocephalic Eye exam: PRESENT: conjunctiva pale, EOMI, PERRLA Mouth exam: PRESENT: moist, neck supple, tongue midline Neck exam: ABSENT: carotid bruit, JVD, lymphadenopathy, thyromegaly, tracheal deviation, tracheostomy Respiratory exam: PRESENT: clear to auscultation martita, symmetrical, unlabored. ABSENT: retraction, rhonchi, tachypnea, wheezes Cardiovascular exam: PRESENT: +S1, +S2, systolic murmur Pulses: PRESENT: +1 pedal pulses bilateral Vascular exam: PRESENT: pallor GI/Abdominal exam: PRESENT: normal bowel sounds. ABSENT: ascites, distended, firm, guarding, organolmegaly, tenderness Rectal exam: PRESENT: deferred Extremities exam: ABSENT: calf tenderness, clubbing, pedal edema Neurological exam: PRESENT: alert, altered - And able to fully assess orientation the patient does deny pain Psychiatric exam: PRESENT: flat affect Skin exam: PRESENT: mottled, pallor Results Laboratory Results: Labs- Last Values WBC 12.1 10^3/uL (4.0-10.5) H 11/21/16 07:17 RBC 2.73 10^6/uL (3.72-5.28) L 11/21/16 07:17 Hgb 9.2 g/dL (12.0-15.5) L 11/21/16 07:17 Hct 26.6 % (36.0-47.0) L 11/21/16 07:17 MCV 98 fl (80-97) H 11/21/16 07:17 MCH 33.9 pg (27.0-33.4) H 11/21/16 07:17 MCHC 34.7 g/dL (32.0-36.0) 11/21/16 07:17 RDW 14.4 % (11.5-14.0) H 11/21/16 07:17 Plt Count 188 10^3/uL (150-450) 11/21/16 07:17 Seg Neutrophils % 72.7 % (42-78) 11/20/16 11:51 Lymphocytes % 16.0 % (13-45) 11/20/16 11:51 Monocytes % 9.2 % (3-13) 11/20/16 11:51 Eosinophils % 1.8 % (0-6) 11/20/16 11:51 Basophils % 0.3 % (0-2) 11/20/16 11:51 Absolute Neutrophils 11.3 10^3/uL (1.7-8.2) H 11/20/16 11:51 Absolute Lymphocytes 2.5 10^3/uL (0.5-4.7) 11/20/16 11:51 Absolute Monocytes 1.4 10^3/uL (0.1-1.4) 11/20/16 11:51 Absolute Eosinophils 0.3 10^3/uL (0.0-0.6) 11/20/16 11:51 Absolute Basophils 0.0 10^3/uL (0.0-0.2) 11/20/16 11:51 PT 15.9 SEC (11.4-15.4) H 11/20/16 11:51 INR 1.23 11/20/16 11:51 VBG pH 7.39 (7.30-7.42) 11/20/16 11:51 VBG pCO2 38.9 mmHg (35-63) 11/20/16 11:51 VBG HCO3 23.0 mmol/L (20-32) 11/20/16 11:51 VBG Base Excess -1.7 mmol/L 11/20/16 11:51 Sodium 142.3 mmol/L (137-145) 11/21/16 07:17 Potassium 3.8 mmol/L (3.6-5.0) 11/21/16 07: Chloride 110 mmol/L (98-107) H 11/21/16 07:17 Carbon Dioxide 20 mmol/L (22-30) L 11/21/16 07:17 Anion Gap 12 (5-19) 11/21/16 07:17 BUN 15 mg/dL (7-20) 11/21/16 07:17 Creatinine 0.73 mg/dL (0.52-1.25) 11/21/16 07:17 Est GFR ( Amer) > 60 (>60) 11/21/16 07: Est GFR (Non-Af Amer) > 60 (>60) 11/21/16 07:17 Glucose 136 mg/dL (75-110) H 11/21/16 07:17 Lactic Acid 1.9 mmol/L (0.7-2.1) 11/20/16 11:51 Calcium 8.6 mg/dL (8.4-10.2) 11/21/16 07:17 Magnesium 1.8 mg/dL (1.6-2.3) 11/21/16 07:17 Total Bilirubin 0.7 mg/dL (0.2-1.3) 11/20/16 11:51 Direct Bilirubin 0.4 mg/dL (0.0-0.4) 11/20/16 11:51 Indirect Bilirubin Not Reportable 11/20/16 11:51 Neonat Total Bilirubin Not Reportable 11/20/16 11:51 AST 42 U/L (14-36) H 11/20/16 11:51 ALT 37 U/L (9-52) 11/20/16 11:51 Alkaline Phosphatase 93 U/L (38-126) 11/20/16 11:51 Total Protein 7.2 g/dL (6.3-8.2) 11/20/16 11:51 Albumin 3.6 g/dL (3.5-5.0) 11/20/16 11:51 Urine Color YELLOW 11/20/16 11:51 Urine Appearance CLOUDY 11/20/16 11:51 Urine pH 5.0 (5.0-9.0) 11/20/16 11:51 Ur Specific [place] 1.021 11/20/16 11:51 Urine Protein 30 mg/dL (NEGATIVE) H 11/20/16 11:51 Urine Glucose (UA) NEGATIVE mg/dL (NEGATIVE) 11/20/16 11:51 Urine Ketones TRACE mg/dL (NEGATIVE) H 11/20/16 11:51 Urine Blood NEGATIVE (NEGATIVE) 11/20/16 11:51 Urine Nitrite NEGATIVE (NEGATIVE) 11/20/16 11:51 Urine Bilirubin NEGATIVE (NEGATIVE) 11/20/16 11:51 Urine Urobilinogen 2.0 mg/dL (<2.0) H 11/20/16 11:51 Ur Leukocyte Esterase SMALL (NEGATIVE) H 11/20/16 11:51 Urine WBC (Auto) 77 /HPF 11/20/16 11:51 Urine RBC (Auto) 5 /HPF 11/20/16 11:51 Urine Bacteria (Auto) 1+ /HPF 11/20/16 11:51 Squamous Epi Cells Auto 6 /HPF 11/20/16 11:51 U Non-Squamous Epis Auto 2 /HPF 11/20/16 11:51 Urine Mucus (Auto) MOD /LPF 11/20/16 11:51 Urine Ascorbic Acid NEGATIVE (NEGATIVE) 11/20/16 11:51 Phenytoin 3.5 ug/mL (10.0-20.0) L 11/20/16 18:39 11/20/16 13:52 Blood Culture - Preliminary Blood NO GROWTH AFTER 72 HOURS 11/20/16 11:51 Urine Culture - Final Catheterized Urine Escherichia Coli 11/20/16 11:51 Blood Culture - Preliminary Blood NO GROWTH AFTER 72 HOURS Impressions: Chest X-Ray 11/20/16 11:42 IMPRESSION: NO ACUTE RADIOGRAPHIC FINDING IN THE CHEST. Qualifiers PATEINT BEING DISCHARGED WITH ANY OF THE FOLLOWING DIAGNOSIS?: No Plan Time Spent: Less than 30 Minutes
== END 2016-11-23 10:35 | disposition home health service (06) | DRG 871 ==
LOC: ER 11:30 → EH 14:43 → UNDOADMIN 14:43 → EH 14:50 → 4N 11-21 14:20
PROVIDERS: ADMIT Family Medicine; ATTEND Family Medicine
DX: A41.9 Sepsis, unspecified organism (principal); G93.40 Encephalopathy, unspecified; N39.0 Urinary tract infection, site not specified; F03.90 Unspecified dementia, unspecified severity, without behavioral disturbance, psychotic disturbance, mood disturbance, and anxiety; G40.909 Epilepsy, unspecified, not intractable, without status epilepticus; D51.9 Vitamin B12 deficiency anemia, unspecified; F41.9 Anxiety disorder, unspecified; E78.5 Hyperlipidemia, unspecified; I10 Essential (primary) hypertension; B96.20 Unspecified Escherichia coli [E. coli] as the cause of diseases classified elsewhere; E78.00 Pure hypercholesterolemia, unspecified; I34.1 Nonrheumatic mitral (valve) prolapse; M19.90 Unspecified osteoarthritis, unspecified site; F32.9 Major depressive disorder, single episode, unspecified; F41.1 Generalized anxiety disorder; Z66 Do not resuscitate; Z90.710 Acquired absence of both cervix and uterus; Z79.82 Long term (current) use of aspirin; Z79.899 Other long term (current) drug therapy; Z86.73 Personal history of transient ischemic attack (TIA), and cerebral infarction without residual deficits; Z51.5 Encounter for palliative care; Z85.3 Personal history of malignant neoplasm of breast; Z82.3 Family history of stroke; Z82.49 Family history of ischemic heart disease and other diseases of the circulatory system
CPT/HCPCS: 36415; 51701; 71010; 80048; 80053; 80185; 81001; 82803; 83605; 83735; 85025; 85027; 85610; 87040; 87086; 87088; 87186; 93005; 93010; 96365; 99285; J0696; J1644; J1956; J3490; J7030

== ENCOUNTER 2016-11-25 23:06 | Inpatient (IN) | payer MEDICARE ==
--- NOTE | 2016-11-25 23:23 | ER Document Report ---
ED General - General Chief Complaint: Fever Stated Complaint: FEVER Notes: Patient is a 86-year-old female who is a DO NOT RESUSCITATE DO NOT INTUBATE CODE STATUS. She presents with fever. She stays at home but has 24-hour care assistance at home. She does have history of previous stroke in July. All history is obtained via [employer] retailer sales consultant report as well as via recent discharge summary. Patient was just discharged from hospital 2 days ago due to urosepsis. Today she spiked a fever again and when paramedics arrived her temp is 101.7 by mouth. Patient herself currently is nonverbal and unable to tell me exactly what is going on or answer questions. TRAVEL OUTSIDE OF THE [place] IN LAST 30 DAYS: No - Related Data Allergies/Adverse Reactions: No Known Allergies Allergy (Verified 11/20/16 12:07) Past Medical History - Social History Smoking Status: Unknown if Ever Smoked Frequency of alcohol use: None Drug Abuse: None Family History: CVA, Hypertension - Past Medical History Cardiac Medical History: Reports: Hx Hypercholesterolemia, Hx Hypertension, Hx Heart Murmur - Mitral valve prolapse Denies: Hx Congestive Heart Failure, Hx DVT, Hx Heart Attack, Hx Pulmonary Embolism Pulmonary Medical History: Denies: Hx Asthma, Hx COPD Neurological Medical History: Reports: Hx Cerebrovascular Accident, Hx Seizures Endocrine Medical History: Denies: Hx Diabetes Mellitus Type 1, Hx Diabetes Mellitus Type 2, Hx Hyperthyroidism, Hx Hypothyroidism Renal/ Medical History: Denies: Hx Peritoneal Dialysis Malignancy Medical History: Reports: Hx Breast Cancer - Status post lumpectomy for same GI Medical History: Denies: Hx Cirrhosis, Hx Gastroesophageal Reflux Disease, Hx Hepatitis Musculoskeltal Medical History: Reports Hx Arthritis Psychiatric Medical History: Reports: Hx Anxiety, Hx Dementia, Hx Depression Infectious Medical History: Denies: Hx Hepatitis Past Surgical History: Reports: Hx Breast Surgery, Hx Hysterectomy, Other - Lumpectomy for breast carcinoma. Excision of facial skin lesions. - Immunizations Hx Diphtheria, Pertussis, Tetanus Vaccination: Yes - 2009 Hx Pneumococcal Vaccination: 03/22/16 Review of Systems - Review of Systems -: Yes ROS unobtainable due to patient's medical condition - Unobtainable due to patient being nonverbal at this time. Physical Exam - Notes Notes: General Appearance: Well nourished, alert but somnolent. Patient will mumble noises but not make coherent speech. Vitals: reviewed, See vital signs table. Head: no swelling or tenderness to the head Eyes: PERRL, EOMI, Conjuctiva clear Mouth: No decreasd moisture Neck: Supple, no neck tenderness, No thyromegaly Lungs: No wheezing, No rales, No rhonci, No accessory muscle use, good air exchange bilaterally. Heart: Normal rate, Regular rythm, No murmur, no rub Abdomen: Normal BS, soft, No rigidity, No abdominal tenderness, No guarding, no rebound, no abdominal masses, no organomegaly Back: No evidence of any sacral decubitus ulcers on exam. Patient does have a bowel movement in her diaper. Is well formed stool without evidence of diarrhea or blood. Extremities: strength 5/5 in all extremities, good pulses in all extremities, no swelling or tenderness in the extremities, no edema. Skin: warm, dry, appropriate color, no rash Neuro: Awake but somnolent. Does not speak coherently or answer questions currently. She does move most her extremities on her own. She does respond to physical stimuli and will turn away. Course - Laboratory Result Diagrams: 11/25/16 23:57 11/25/16 23:57 Laboratory results interpreted by me: 11/25/16 11/25/16 11/25/16 23:40 23:57 23:57 WBC 17.8 H RBC 2.90 L Hgb 9.6 L Hct 28.9 L MCV 100 H RDW 14.8 H Seg Neutrophils % 80.3 H Lymphocytes % 9.5 L Absolute Neutrophils 14.3 H Absolute Monocytes 1.8 H Sodium 145.5 H Potassium 3.2 L Chloride 112 H Glucose 173 H Direct Bilirubin 0.5 H Total Protein 5.7 L Albumin 2.7 L Urine Protein 30 H - Transfer of Care Notes: 11/26/16 02:30 Patient will be admitted due to recurrent fever. She has a leukocytosis recent increase in comparison to when she was admitted just a few days ago. Urinalysis is clear by suspect she probably has ongoing infection from her previous Escherichia coli UTI infection. Suspect she may have developed some bacteremia from the previous infection.. Patient was given a dose Rocephin being that her previous culture shows sensitivity to this. Patient's internet marketer is at bedside and says that her mental status is at her baseline. She is awake and alert. She is much more alert than she was when she first arrived. She does not talk coherently at baseline. I spoke with the hospitalist who agrees to admit the patient. Dictation of this chart was performed using voice recognition software; therefore, there may be some unintended grammatical errors. Discharge - Discharge Clinical Impression: Leukocytosis Qualifiers: Leukocytosis type: unspecified Qualified Code(s): D72.829 - Elevated white blood cell count, unspecified Fever Qualifiers: Fever type: unspecified Qualified Code(s): R50.9 - Fever, unspecified Condition: Stable Disposition: ADMITTED OBSERVATION Admitting Provider: Hospitalist Unit Admitted: Telemetry
[2016-11-25 23:56] LABS: APPEARANCE,URINE SLIGHTLY-CLOUDY; BILIRUBIN,URINE NEGATIVE (NEGATIVE); GLUCOSE, URINE NEGATIVE (NEGATIVE); KETONES,URINE NEGATIVE (NEGATIVE); LEUKOCYTE ESTERASE,URINE NEGATIVE (NEGATIVE); NITRITE,URINE NEGATIVE (NEGATIVE); PROTEIN,URINE 30 mg/dL (NEGATIVE); URINE SPECIFIC GRAVITY 1.024; UROBILINOGEN,URINE NEGATIVE mg/dL (<2.0)
[2016-11-26 00:23] LABS: ABSOLUTE LYMPHOCYTES (AUTO) 1.7 10^3/uL (0.5-4.7); ABSOLUTE MONOCYTES (AUTO) 1.8 10^3/uL (0.1-1.4); ABSOLUTE NEUT (AUTO) 14.3 10^3/uL (1.7-8.2); BASOPHILS % (AUTO) 0.2 % (0-2); EOSINOPHILS % (AUTO) 0.2 % (0-6); HEMATOCRIT 28.9 % (36.0-47.0); HEMOGLOBIN 9.6 g/dL (12.0-15.5); HGB HCT DIFFERENCE -0.1; LYMPHOCYTES % (AUTO) 9.5 % (13-45); MEAN CORPUSCULAR HEMOGLOBIN 33.1 pg (27.0-33.4); MEAN CORPUSCULAR HGB CONC 33.2 g/dL (32.0-36.0); MEAN CORPUSCULAR VOLUME 100 fl (80-97); MONOCYTES % (AUTO) 9.8 % (3-13); RED CELL DISTRIBUTION WIDTH 14.8 % (11.5-14.0); SEGMENTED NEUTROPHILS % (AUTO) 80.3 % (42-78); WHITE BLOOD COUNT 17.8 10^3/uL (4.0-10.5)
[2016-11-26] MEDS ORDERED: CEFTRIAXONE INJ 1000 MG VIAL IV ONE (00:47)
[2016-11-26 00:48] LABS: ALANINE AMINOTRANSFERASE 32 U/L (9-52); ALBUMIN 2.7 g/dL (3.5-5.0); ALKALINE PHOSPHATASE 67 U/L (38-126); ANION GAP 10 (5-19); ASPARTATE AMINO TRANSFERASE 22 U/L (14-36); BILIRUBIN,DIRECT 0.5 mg/dL (0.0-0.4); BILIRUBIN,TOTAL 0.6 mg/dL (0.2-1.3); BLOOD UREA NITROGEN 18 mg/dL (7-20); CALCIUM 8.8 mg/dL (8.4-10.2); CARBON DIOXIDE 24 mmol/L (22-30); CHLORIDE 112 mmol/L (98-107); CREATININE RESULT 0.79 mg/dL (0.52-1.25); GLUCOSE 173 mg/dL (75-110); POTASSIUM 3.2 mmol/L (3.6-5.0); SODIUM 145.5 mmol/L (137-145); TOTAL PROTEIN 5.7 g/dL (6.3-8.2)
[2016-11-26] MEDS ORDERED: ACETAMINOPHEN 650 MG SUPP.RECT PR PRN (03:52)
[2016-11-26] MEDS ORDERED: GLUCAGON,HUMAN RECOMB 1 MG INJ SUBCUT PRN (03:57)
[2016-11-26] MEDS ORDERED: DEXTROSE 50%-WATER 25 GM/50 ML DISP.SYRIN IV PRN ×2 (03:57)
[2016-11-26] MEDS ORDERED: DEXTROSE 40% GEL 15 GM TUBE PO PRN ×2 (03:57)
[2016-11-26 04:05] LABS: ADD ON TESTING BLD IN LAB ACKNOWLEDGE
[2016-11-26] MEDS: 1/2 NORMAL SALINE 1,000 ML IV PRN ×3 (04:18→23:21)
[2016-11-26] MEDS: POTASSI CL 20 MEQ/50 ML RIDER 20 MEQ/50 ML RTUPB IV SCH ×2 (04:19→06:32)
--- NOTE | 2016-11-26 04:28 | PDOC H&P ---
History of Present Illness Admission Date/PCP: 11/26/16 03:14 DELISA MCLEAN MD Patient complains of: fever History of Present Illness: GISELLE PUTNAM is a 86 year old female With underlying hypertension, hyperlipidemia, dementia, seizure disorder, with only one seizure episode 3 years ago, prior stroke several months ago which has left her with expressive dysphasia, discharged from our facility on the fifth of this month for urinary tract infection, who presents to the emergency room for evaluation of above complaint. Patient has been discussed with emergency room physician who evaluated the patient. Patient is somewhat fatigued, and has pronounced expressive dysphasia from recent stroke and is able to provide no history whatsoever in terms of acute or chronic events, review of systems, personal habits, family history, etc. 2 female caretakers are present. Old inpatient records are reviewed. Fever 101.7 upon EMS arrival. Emergency room physician notes reviewed. No further information available this point in time. . Hospitalized on our service the second through the fifth of this month with discharge diagnoses including urinary tract infection with resulting sepsis, among other diagnoses. History and physical and discharge summary reviewed. Comment is made in her discharge summary that son-in-law stated that patient' s daughter at times can be belligerent and to notify him if daughter should arrive. Laboratory results are listed in Funding Profiles and are reviewed. X-ray summary results are listed below, with full report(s) reviewed. . Social history/personal habits: Lives at home, with 24-hour care assistance. No use of alcohol tobacco or illicit drugs.No further information available this point in time. Allergies/adverse reactions NKDA. Home medications Home medications initially autopopulated into [employer] may not accurately reflect patient's true medications, dosages, and/or frequencies. artificial breeding technician to reconcile medications. Unfortunately, patient not able to provide any information related to her medications/dosages/frequencies. REVIEW OF SYSTEMS: See history and present illness.No further information available this point in time. PHYSICAL EXAMINATION: 5 feet 4 inches tall. 60.5 kg. BMI 22.9 kg/m. Blood pressure 135/76. Pulse 75 and regular. Respirations are 22 and unlabored. 97% saturation on room air. Temperature is not recorded on the chart; skin feels normothermic. Well-nourished well-developed elderly female appearing approximately her stated age. Initially asleep, but does awaken slightly. Cooperative, but overall does not react very meaningfully with her surroundings. No obvious distress other than somewhat anxious. Skin is warm and dry. No grossly obvious evidence of rash in areas of skin examined. No subcutaneous nodules palpated. According to her 2 female caretakers present at bedside, no skin breakdown. ENT: Hearing difficult to completely evaluate, but patient does look at speaker when addressed in a normal volume voice. Tongue midline on protrusion pink and slightly tacky. Eyes: No scleral icterus. Pupils equal and reactive to light at 3 mm. [place] conjunctivae. No raccoon eyes. Neck is supple and nontender to gentle active range of motion and palpation. Midline trachea. No palpable thyroid nodule mass enlargement or tenderness. Lymphatic: No palpable cervical or clavicular nodes. Neck and lymphatic exams limited by patient body habitus. Psychiatric: Can't be adequately evaluated due to her current status. Lungs: Auscultation reveals clear and equal breath sounds bilaterally. No use of accessory respiratory muscles. Cardiovascular: Heart regular rate and rhythm, without gallop murmur or rub. No carotid or abdominal aortic bruits. Very mild bilateral symmetric slightly pitting ankle and pedal edema. Faintly palpable dorsalis pedis pulses. Abdomen: soft, slightly, distended nontender with positive bowel sounds. Unable to adequately evaluate abdomen for masses or organomegaly due to distention. Extremities: Feet are warm and dry. No calf tenderness to compression. No grossly obvious visual evidence of calf swelling. Gentle manipulation of lower extremities fails to reveal any obvious evidence of injury or instability to knees hips or ankles, although range of motion is somewhat decreased at knees and hips due to her bedbound status. Neurologic: Patellar reflexes absent. Absent Babinski. Light touch can't be adequately determined due to her current mental status. Tries to speak on occasion, but only makes unintelligible sounds. Past Medical History Cardiac Medical History: Reports: Hyperlipidema, Hypertension, Heart Murmur - Mitral valve prolapse Denies: Congestive Heart Failure, DVT, Myocardial Infarction, Pulmonary Embolism Pulmonary Medical History: Denies: Asthma, Chronic Obstructive Pulmonary Disease (COPD) Neurological Medical History: Reports: Ischemic CVA, Seizures - One episode 2013 or 2013. Endocrine Medical History: Denies: Diabetes Mellitus Type 1, Diabetes Mellitus Type 2, Hyperthyroidism, Hypothyroidism Malignancy Medical History: Reports: Breast Cancer - Status post lumpectomy for same GI Medical History: Denies: Cirrhosis, Gastroesophageal Reflux Disease, Hepatitis Musculoskeltal Medical History: Reports: Arthritis Psychiatric Medical History: Reports: Dementia, Depression Denies: Alcohol Dependency, Substance Abuse, Tobacco Dependency Hematology: Reports: Anemia Past Surgical History Past Surgical History: Reports: Hysterectomy, Other - Lumpectomy for breast carcinoma. Excision of facial skin lesions. Social History Information Source: Emergency Med Personnel, [facility] Records Lives with: Alone - 24 hour assistance at home. Smoking Status: Unknown if Ever Smoked Frequency of Alcohol Use: None Hx Recreational Drug Use: No Drugs: None Hx Prescription Drug Abuse: No - Advance Directive Resuscitation Status: Do Not Resuscitate Surrogate healthcare decision maker:: Son-in-law Elmer Lugo Family History Family History: CVA, Hypertension Parental Family History Reviewed: No - patient not able to provide information Children Family History Reviewed: No - patient not able to provide information Sibling(s) Family History Reviewed.: No - patient not able to provide information Medication/Allergy Home Medications: Aspirin/Dipyridamole [Aggrenox 25 mg-200 mg Capsule] 1 each PO Q12 11/26/16 Atorvastatin Calcium [Lipitor 20 mg Tablet] 20 mg PO QHS 11/26/16 Cefuroxime Axetil [Ceftin 250 mg Tablet] 250 mg PO BID 11/26/16 Cyanocobalamin (Vitamin B-12) [Vitamin B12] 2,500 mcg PO QAM 11/26/16 Donepezil HCl [Aricept 5 mg Tablet] 5 mg PO QHS 11/26/16 Escitalopram Oxalate [Lexapro 10 mg Tablet] 10 mg PO DAILY 11/26/16 Hydralazine HCl [Apresoline 50 mg Tablet] 100 mg PO Q12 11/26/16 Memantine HCl [Namenda 10 mg Tablet] 10 mg PO BID 11/26/16 Metoprolol Succinate [Toprol Xl 50 mg Tab.sr] 50 mg PO DAILY 11/26/16 Nifedipine [Nifedipine ER] 60 mg PO DAILY 11/26/16 Phenytoin Sodium Extended [Dilantin 100 mg Capsule.er] 100 mg PO Q12 11/26/16 Phenytoin Sodium Extended [Dilantin] 60 mg PO DAILY 11/26/16 Zolpidem Tartrate [Ambien Cr] 12.5 mg PO HSP PRN 11/26/16 Allergies/Adverse Reactions: No Known Allergies Allergy (Verified 11/20/16 12:07) Results Impressions: Chest X-Ray 11/26/16 00:00 IMPRESSION: NO ACUTE RADIOGRAPHIC FINDING IN THE CHEST. Assessment & Plan - Diagnosis (1) DNR (do not resuscitate) Is this a current diagnosis for this admission?: YesPlan: DO NOT RESUSCITATE/DO NOT INTUBATE status established during her recent hospital stay. At 3:45 AM, 11/27/2015, I spoke by phone with her health care decision maker, son-in-law Elmer Lugo. Reason for admission discussed. Implications of DO NOT RESUSCITATE/DO NOT INTUBATE status discussed with Mr. Canseco. Discussed in layperson's terms. Implications understood. Mr. Canseco is the health care decision maker. His conversation is lucid and appropriate. He desires DO NOT RESUSCITATE/DO NOT INTUBATE status. Will honor his wishes. (2) Dysphasia Is this a current diagnosis for this admission?: YesPlan: Failed swallow screen per emergency room nursing staff. Speech therapy consult. Completely nothing by mouth. (3) Hypokalemia Is this a current diagnosis for this admission?: YesPlan: Magnesium level pending. Potassium replacement. (4) History of urinary tract infection Is this a current diagnosis for this admission?: YesPlan: Recent culture results reviewed. (5) Leukocytosis Qualifiers: Leukocytosis type: unspecified Qualified Code(s): D72.829 - Elevated white blood cell count, unspecified Is this a current diagnosis for this admission?: Yes (6) Fever Qualifiers: Fever type: unspecified Qualified Code(s): R50.9 - Fever, unspecified Is this a current diagnosis for this admission?: YesPlan: No obvious source by workup so far, but will proceed as for continuing problems with urinary tract infection. Rocephin. Blood and urine cultures have been obtained. Knee high SCDs for DVT prophylaxis, along with subcutaneous Lovenox . Impression and plans were discussed with patient's to female caretakers at bedside, who concur. Time spent in evaluation and management of patient: 61 minutes.
[2016-11-26 07:21] LABS: ABSOLUTE LYMPHOCYTES (AUTO) 1.9 10^3/uL (0.5-4.7); ABSOLUTE NEUT (AUTO) 15.9 10^3/uL (1.7-8.2); BASOPHILS % (AUTO) 0.1 % (0-2); EOSINOPHILS % (AUTO) 0.2 % (0-6); HEMATOCRIT 30.5 % (36.0-47.0); HEMOGLOBIN 10.3 g/dL (12.0-15.5); HGB HCT DIFFERENCE 0.4; LYMPHOCYTES % (AUTO) 9.5 % (13-45); MEAN CORPUSCULAR HEMOGLOBIN 33.1 pg (27.0-33.4); MEAN CORPUSCULAR HGB CONC 33.6 g/dL (32.0-36.0); MEAN CORPUSCULAR VOLUME 99 fl (80-97); MONOCYTES % (AUTO) 10.3 % (3-13); RED BLOOD COUNT 3.09 10^6/uL (3.72-5.28); RED CELL DISTRIBUTION WIDTH 14.9 % (11.5-14.0); SEGMENTED NEUTROPHILS % (AUTO) 79.9 % (42-78); WHITE BLOOD COUNT 19.9 10^3/uL (4.0-10.5)
[2016-11-26 07:26] LABS: ANION GAP 10 (5-19); BLOOD UREA NITROGEN 18 mg/dL (7-20); CALCIUM 9.1 mg/dL (8.4-10.2); CARBON DIOXIDE 26 mmol/L (22-30); CHLORIDE 111 mmol/L (98-107); CREATININE RESULT 0.78 mg/dL (0.52-1.25); GLUCOSE 133 mg/dL (75-110); POTASSIUM 3.1 mmol/L (3.6-5.0); SODIUM 146.5 mmol/L (137-145)
--- NOTE | 2016-11-26 07:43 | Physician Advisory Note ---
Physician Advisor ProgressNote .: Pursuant to the plan for [facility], I have reviewed the medical record for this patient. Physician Advisor Statement: Possible documentation opportunities if attending agrees: 1. "presumed bacterial infection of undetermined etiology, possibly ____" [ aspiration pneumonitis? recurrent UTI? ...] 2. "athersclerotic cerebrovascular disease" [new dysphagia, MRI in Jul = white matter microvascular ischemic changes] 3. "acute hypernatremia, suspect due to " 4. Medical necessity: with more specific dx.s of #1,2, & 3 above documented, & documentation of need for continued tx & monitoring at least until 11/27 for clinical reasons, pt will be appropriate to change to Inpt status. 5. "suspected protein-calorie malnutrition [state mild, mod, or severe] with BMI 22.9, albumin 2.7, ____[?wt loss, ?appetite loss, ]" [if possible, give specifics on intake, wt loss, loss of SQ fat & muscle mass, diminished hand car worker strength, & clinical importance such as (A) nutritional assessment ordered, (B) modified diet or supplements ordered, (C) additional labs ordered, (D) prolonged wound healing time, (E) delayed infxn clearance] 6. "chronic anemia of B12 defic" As always, if concerned about any unstable VS or abnormal labs, please comment on them - what bad things they might indicate, why they concern you - & note what doing about them. Please also document each day the potential clinical problems you are concerned could occur if pt not kept in hospital for tx at this time. (These points are linder - if present in each note, attending's status decision should be sufficiently supported.) Discussion: 86yo female w/ chronic co-morbidities including dementia, past CVA w/expressive aphasia, incontinence with use of diapers, HTN, HLD, MVP, br CA/lumpectomy, recent admission 11/20-12/05 for sepsis due to UTI, with which she came in with WBC 15.6 (dropped to 12.1 before d/c) - presented 5/7 PM to ED w/fever, somnolence, WBC higher than during recent sepsis adm, but more benign appearing U/A (+) T101.7 for EMS. HR 88-89, RR21, BP 106/83. WBC 17.8, Hgb 9.6, Na 145.5, K 3.2, glc 173, Cr 0.79, U/A w/30 pro (o/w neg), alb 2.7, CXR = no acute findings. ED gave Rocephin. By time of ED dr ayers hospitalist, pt "much more alert than when first arrived". Pt failed swallow screen. Attending ordered NPO, ST consult, IV Rocephin, BC, ur cx, IVKCl, 1/2NS @75, I/ Os, aspiration/falls/sz precautions, tele monitoring, egg setter consult, VS q4h , f/u labs. Status: With only nonspecific "sx dx.s" of "dysphasia", "h/o UTI", "leukocytosis", & "fever", pt appropriate to start in Outpt Obs status. However, ... This Medicare pt has spent 1 MN in hospital care so far. Currently NPO due to dysphagia, failing swallow screen. Being monitored & tx'd for presumed bacterial infxn of unclear etiology. If attending agrees that continued tx & monitoring in inpatient hospital setting for at least a 2nd MN = medically reasonable & necessary to protect pt' s health, safety, & medical condition, & documents more specific dx.s such as above, pt appropriate to change to Inpt status. Thanks for your help with documentation accuracy/specificity improvement! Vijaya Cagle MD [facility] Physician Advisor, Fellow of Hospital Medicine
[2016-11-26] MEDS: ENOXAPARIN SODIUM INJ 40 MG/0.4 ML DISP.SYRIN SUBCUT SCH (08:10)
[2016-11-26] MEDS ORDERED: POTASSI CL 20 MEQ/50 ML RIDER 20 MEQ/50 ML RTUPB IV ONE (09:30)
[2016-11-26] MEDS ORDERED: ERTAPENEM SODIUM 1 GM in NORMAL SALINE 50 ML IV SCH (10:00)
--- NOTE | 2016-11-26 12:49 | PDOC PROGRESS REPORT ---
Subjective Progress Note for:: 11/26/16 - [id number] Subjective:: The patient was seen earlier today on rounds. The patient is awake and alert but is very confused. The patient has been fidgeting all morning. I called and spoke with the patient's son in law Payne who is her power of sport psychologist. There have been no reported episodes of vomiting nor diarrhea The patient has remained afebrile. Blood pressures have been in a good range. When prompted the patient voices no other concerns at this time. 24 hour caregiver is present at the bedside and active in the patient's care Review of systems: Review of systems cannot be obtained given the patient's mental status. Brief history: Ms. Quintero 86-year-old female that unfortunately suffered a stroke in July 2016. The patient is well known to the hospitalist service. The patient was admitted on 11/20/2016 due to urinary tract infection and early sepsis. At that time the patient was hydrated, urine culture was suggestive of pansensitive Escherichia coli, the patient was treated with 3 days of Rocephin and was sent home on Ceftin by mouth on 2016. Unfortunately over night on 11/26/2016 the patient developed fever and delirium and was brought into the emergency [facility] for evaluation. The patient did have findings that were consistent with once again an early sepsis and UTI. The patient has been started on a carb ertapenem and awaiting culture and sensitivities. Physical Exam Vital Signs: Temp Pulse Resp BP Pulse Ox 98.4 F 84 18 137/80 H 96 11/26/16 07:29 11/26/16 07:29 11/26/16 07:29 11/26/16 07:29 11/26/16 07:29 General appearance: PRESENT: disheveled, well-nourished Exam: Frail, chronically ill-appearing Head exam: PRESENT: atraumatic, normocephalic Eye exam: PRESENT: conjunctiva pale, EOMI, PERRLA Mouth exam: PRESENT: moist, neck supple, tongue midline Neck exam: ABSENT: carotid bruit, JVD, lymphadenopathy, thyromegaly, tracheal deviation, tracheostomy Respiratory exam: PRESENT: clear to auscultation martita, symmetrical, unlabored. ABSENT: retraction, rhonchi, tachypnea, wheezes Cardiovascular exam: PRESENT: +S1, +S2, systolic murmur Pulses: PRESENT: +1 pedal pulses bilateral Vascular exam: PRESENT: pallor GI/Abdominal exam: PRESENT: normal bowel sounds. ABSENT: ascites, distended, firm, guarding, organolmegaly, tenderness Rectal exam: PRESENT: deferred Extremities exam: ABSENT: calf tenderness, clubbing, pedal edema Neurological exam: PRESENT: alert, altered - unable to fully assess orientation the patient does deny pain Psychiatric exam: PRESENT: flat affect Skin exam: PRESENT: mottled, pallor Results Laboratory Results: Labs- Last Values WBC 19.9 10^3/uL (4.0-10.5) H 11/26/16 06:40 RBC 3.09 10^6/uL (3.72-5.28) L 11/26/16 06:40 Hgb 10.3 g/dL (12.0-15.5) L 11/26/16 06:40 Hct 30.5 % (36.0-47.0) L 11/26/16 06:40 MCV 99 fl (80-97) H 11/26/16 06:40 MCH 33.1 pg (27.0-33.4) 11/26/16 06:40 MCHC 33.6 g/dL (32.0-36.0) 11/26/16 06:40 RDW 14.9 % (11.5-14.0) H 11/26/16 06:40 Plt Count 217 10^3/uL (150-450) 11/26/16 06:40 Seg Neutrophils % 79.9 % (42-78) H 11/26/16 06:40 Lymphocytes % 9.5 % (13-45) L 11/26/16 06:40 Monocytes % 10.3 % (3-13) 11/26/16 06:40 Eosinophils % 0.2 % (0-6) 11/26/16 06:40 Basophils % 0.1 % (0-2) 11/26/16 06:40 Absolute Neutrophils 15.9 10^3/uL (1.7-8.2) H 11/26/16 06:40 Absolute Lymphocytes 1.9 10^3/uL (0.5-4.7) 11/26/16 06:40 Absolute Monocytes 2.0 10^3/uL (0.1-1.4) H 11/26/16 06:40 Absolute Eosinophils 0.0 10^3/uL (0.0-0.6) 11/26/16 06:40 Absolute Basophils 0.0 10^3/uL (0.0-0.2) 11/26/16 06:40 Sodium 146.5 mmol/L (137-145) H 11/26/16 06:40 Potassium 3.1 mmol/L (3.6-5.0) L 11/26/16 06:40 Chloride 111 mmol/L (98-107) H 11/26/16 06:40 Carbon Dioxide 26 mmol/L (22-30) 11/26/16 06:40 Anion Gap 10 (5-19) 11/26/16 06:40 BUN 18 mg/dL (7-20) 11/26/16 06:40 Creatinine 0.78 mg/dL (0.52-1.25) 11/26/16 06:40 Est GFR ( Amer) > 60 (>60) 11/26/16 06:40 Est GFR (Non-Af Amer) > 60 (>60) 11/26/16 06:40 Glucose 133 mg/dL (75-110) H 11/26/16 06:40 Calcium 9.1 mg/dL (8.4-10.2) 11/26/16 06:40 Magnesium 2.0 mg/dL (1.6-2.3) 11/25/16 23:57 Total Bilirubin 0.6 mg/dL (0.2-1.3) 11/25/16 23:57 Direct Bilirubin 0.5 mg/dL (0.0-0.4) H 11/25/16 23:57 Indirect Bilirubin Not Reportable 11/25/16 23:57 Neonat Total Bilirubin Not Reportable 11/25/16 23:57 AST 22 U/L (14-36) 11/25/16 23:57 ALT 32 U/L (9-52) 11/25/16 23:57 Alkaline Phosphatase 67 U/L (38-126) 11/25/16 23:57 Total Protein 5.7 g/dL (6.3-8.2) L 11/25/16 23:57 Albumin 2.7 g/dL (3.5-5.0) L 11/25/16 23:57 Urine Color YELLOW 11/25/16 23:40 Urine Appearance SLIGHTLY-CLOUDY 11/25/16 23:40 Urine pH 5.0 (5.0-9.0) 11/25/16 23:40 Ur Specific Baring 1.024 11/25/16 23:40 Urine Protein 30 mg/dL (NEGATIVE) H 11/25/16 23:40 Urine Glucose (UA) NEGATIVE mg/dL (NEGATIVE) 11/25/16 23:40 Urine Ketones NEGATIVE mg/dL (NEGATIVE) 11/25/16 23:40 Urine Blood NEGATIVE (NEGATIVE) 11/25/16 23:40 Urine Nitrite NEGATIVE (NEGATIVE) 11/25/16 23:40 Urine Bilirubin NEGATIVE (NEGATIVE) 11/25/16 23:40 Urine Urobilinogen NEGATIVE mg/dL (<2.0) 11/25/16 23:40 Ur Leukocyte Esterase NEGATIVE (NEGATIVE) 11/25/16 23:40 Urine WBC (Auto) 1 /HPF 11/25/16 23:40 Urine RBC (Auto) 1 /HPF 11/25/16 23:40 Squamous Epi Cells Auto 1 /HPF 11/25/16 23:40 Urine Mucus (Auto) RARE /LPF 11/25/16 23:40 Urine Ascorbic Acid NEGATIVE (NEGATIVE) 11/25/16 23:40 Impressions: Chest X-Ray 11/26/16 00:00 IMPRESSION: NO ACUTE RADIOGRAPHIC FINDING IN THE CHEST. Assessment & Plan - Diagnosis (1) Urinary tract infection Qualifiers: Urinary tract infection type: site unspecified Hematuria presence: without hematuria Qualified Code(s): N39.0 - Urinary tract infection, site not specified Is this a current diagnosis for this admission?: YesPlan: Will continue ertapenem for now. Currently awaiting culture and sensitivity. (2) Acute encephalopathy Is this a current diagnosis for this admission?: YesPlan: Secondary to #1 (3) Dementia Qualifiers: Dementia type: unspecified type Dementia behavioral disturbance: without behavioral disturbance Qualified Code(s): F03.90 - Unspecified dementia without behavioral disturbance Is this a current diagnosis for this admission?: Yes (4) HTN (hypertension) Qualifiers: Hypertension type: essential hypertension Qualified Code(s): I10 - Essential (primary) hypertension Is this a current diagnosis for this admission?: YesPlan: Resume the patient's home medications (5) Anxiety Is this a current diagnosis for this admission?: Yes (6) Vitamin B12 deficiency anemia Qualifiers: Vitamin B12 deficiency anemia type: unspecified B12 deficiency Qualified Code(s): D51.9 - Vitamin B12 deficiency anemia, unspecified Is this a current diagnosis for this admission?: Yes (7) Hyperlipidemia Qualifiers: Hyperlipidemia type: unspecified Qualified Code(s): E78.5 - Hyperlipidemia, unspecified Is this a current diagnosis for this admission?: YesPlan: Will continue home medications. (8) Seizure disorder Is this a current diagnosis for this admission?: YesPlan: The patient's prior Dilantin levels consistent with her albumin correction. (9) Cerebral vascular disease Is this a current diagnosis for this admission?: YesPlan: Continue aspirin (10) Dysphasia Is this a current diagnosis for this admission?: YesPlan: Discussed the case with speech therapy. Recommendations are made for pured meats and nectar liquids. (11) DNR (do not resuscitate) Is this a current diagnosis for this admission?: Yes - Time Time Spent with patient: on this visit including assessment, plan, physical examination, family meeting, and patient education is 40 minutes. Time Spent with patient: 25-34 minutes Medications reviewed and adjusted accordingly: Yes Anticipated discharge: Home Disposition: The patient is a DO NOT RESUSCITATE DO NOT INTUBATE. Pending patient's symptomatology and diagnostic findings will reevaluate as needed. - Inpatient Certification Based on my medical assessment, after consideration of the patient's comorbidities, presenting symptoms, or acuity I expect that the services needed warrant INPATIENT care.: Yes I certify that my determination is in accordance with my understanding of Medicare's requirements for reasonable and necessary INPATIENT services [42 CFR 412.3e].: Yes Medical Necessity: Need For IV Fluids, Need for IV Antibiotics, Risk of Complication if Not Cared For in Hospital Post Hospital Care: D/C or Transfer Summary
[2016-11-27 05:59] LABS: HEMATOCRIT 25.8 % (36.0-47.0); HEMOGLOBIN 8.6 g/dL (12.0-15.5); MEAN CORPUSCULAR HEMOGLOBIN 33.2 pg (27.0-33.4); MEAN CORPUSCULAR HGB CONC 33.5 g/dL (32.0-36.0); MEAN CORPUSCULAR VOLUME 99 fl (80-97); RED BLOOD COUNT 2.61 10^6/uL (3.72-5.28); RED CELL DISTRIBUTION WIDTH 14.7 % (11.5-14.0); WHITE BLOOD COUNT 13.8 10^3/uL (4.0-10.5)
[2016-11-27 06:16] LABS: ANION GAP 8 (5-19); BLOOD UREA NITROGEN 15 mg/dL (7-20); CARBON DIOXIDE 22 mmol/L (22-30); CHLORIDE 111 mmol/L (98-107); CREATININE RESULT 0.68 mg/dL (0.52-1.25); GLUCOSE 115 mg/dL (75-110); POTASSIUM 3.7 mmol/L (3.6-5.0); SODIUM 140.9 mmol/L (137-145)
[2016-11-27] MEDS: ENOXAPARIN SODIUM INJ 40 MG/0.4 ML DISP.SYRIN SUBCUT SCH (08:42)
[2016-11-27] MEDS ORDERED: CEFUROXIME 250 MG/5 ML SUSP 50 ML PO SCH (10:00)
[2016-11-27] MEDS ORDERED: NIFEDIPINE 30 MG TAB.ER.24 PO SCH (10:00)
[2016-11-27] MEDS ORDERED: (PENDING PHARMACY ID) (Nifedipine [Nifedipine Er] 60 MG) PO SCH (10:00)
[2016-11-27] MEDS ORDERED: ASPIRIN/DIPYRIDAMOLE 25-200 MG 1 CAP.SR CPMP.12HR PO SCH (10:00)
[2016-11-27] MEDS: CEFUROXIME 250 MG/5 ML SUSP 50 ML PO SCH ×2 (11:04→21:19)
[2016-11-27] MEDS: PHENYTOIN SODIUM EXTENDED 100 MG CAPSULE PO SCH ×2 (11:04→21:19)
[2016-11-27] MEDS: METOPROLOL SUCCINATE 50 MG TAB.SR.24H PO SCH (11:05)
[2016-11-27] MEDS: HYDRALAZINE HCL 50 MG TABLET PO SCH ×2 (11:05→21:19)
[2016-11-27] MEDS: ESCITALOPRAM OXALATE 10 MG TABLET PO SCH (11:05)
[2016-11-27] MEDS: MEMANTINE HCL 10 MG TABLET PO SCH ×2 (11:05→17:51)
--- NOTE | 2016-11-27 11:17 | PDOC PROGRESS REPORT ---
Subjective Progress Note for:: 11/27/16 Subjective:: Patient is seen on morning rounds. She is awake and alert but confused 3. She has her visitor services information assistant at bedside. She states she's getting closer to her baseline mentality and behaviors. She states her eyes look "glassy" to her. She has been eating and drinking better. No family members are presently at the bedside. Review of systems is presently unobtainable due to patient's mentation. Physical Exam Vital Signs: Temp Pulse Resp BP Pulse Ox 98.3 F 100 17 171/70 H 93 11/27/16 07:23 11/27/16 07:23 11/27/16 07:23 11/27/16 07:23 11/27/16 07:23 Intake & Output 11/26/16 11/27/16 11/28/16 06:59 06:59 06:59 Intake Total 2870 Balance 2870 General appearance: PRESENT: no acute distress, thin, well-developed, well- nourished Head exam: PRESENT: atraumatic, normocephalic Eye exam: PRESENT: conjunctiva pink, EOMI, PERRLA. ABSENT: scleral icterus Ear exam: PRESENT: normal external ear exam Mouth exam: PRESENT: moist, tongue midline Neck exam: ABSENT: carotid bruit, JVD, lymphadenopathy, thyromegaly Respiratory exam: PRESENT: clear to auscultation martita. ABSENT: rales, rhonchi, wheezes Cardiovascular exam: PRESENT: RRR. ABSENT: diastolic murmur, rubs, systolic murmur Vascular exam: PRESENT: normal capillary refill GI/Abdominal exam: PRESENT: normal bowel sounds, soft. ABSENT: distended, guarding, mass, organolmegaly, rebound, tenderness Rectal exam: PRESENT: deferred Extremities exam: PRESENT: full ROM. ABSENT: calf tenderness, clubbing, pedal edema Musculoskeletal exam: PRESENT: full ROM, normal inspection Neurological exam: PRESENT: alert, altered, CN II-XII grossly intact Psychiatric exam: PRESENT: agitated Skin exam: PRESENT: dry, intact, warm. ABSENT: cyanosis, rash Results Laboratory Results: 11/27/16 05:01 11/27/16 05:01 11/27/16 11/27/16 05:01 05:01 WBC 13.8 H RBC 2.61 L Hgb 8.6 L Hct 25.8 L MCV 99 H MCH 33.2 MCHC 33.5 RDW 14.7 H Plt Count 194 Sodium 140.9 Potassium 3.7 Chloride 111 H Carbon Dioxide 22 Anion Gap 8 BUN 15 Creatinine 0.68 Est GFR ( Amer) > 60 Est GFR (Non-Af Amer) > 60 Glucose 115 H Calcium 8.0 L Magnesium 2.0 Impressions: Chest X-Ray 11/26/16 00:00 IMPRESSION: NO ACUTE RADIOGRAPHIC FINDING IN THE CHEST. Assessment & Plan - Diagnosis (1) Acute encephalopathy Is this a current diagnosis for this admission?: YesPlan: Likely secondary to urinary tract infection. We will transition her from IV antibiotics to oral. Blood cultures have been negative as well as repeat urine culture. (2) Urinary tract infection Qualifiers: Urinary tract infection type: site unspecified Hematuria presence: without hematuria Qualified Code(s): N39.0 - Urinary tract infection, site not specified Is this a current diagnosis for this admission?: YesPlan: Transitioning her from IV Rocephin to oral Ceftin in preparation for discharge (3) Dysphasia Is this a current diagnosis for this admission?: YesPlan: Patient was evaluated by speech therapy to recommended diet of thickened liquids and soft (4) HTN (hypertension) Qualifiers: Hypertension type: essential hypertension Qualified Code(s): I10 - Essential (primary) hypertension Is this a current diagnosis for this admission?: YesPlan: Continue home antihypertensives. (5) Dementia Qualifiers: Dementia type: unspecified type Dementia behavioral disturbance: without behavioral disturbance Qualified Code(s): F03.90 - Unspecified dementia without behavioral disturbance Is this a current diagnosis for this admission?: YesPlan: Continue home medications (6) Vitamin B12 deficiency anemia Qualifiers: Vitamin B12 deficiency anemia type: unspecified B12 deficiency Qualified Code(s): D51.9 - Vitamin B12 deficiency anemia, unspecified Is this a current diagnosis for this admission?: YesPlan: Continue B12 supplements (7) Cerebral vascular disease Is this a current diagnosis for this admission?: Yes (8) DNR (do not resuscitate) Is this a current diagnosis for this admission?: Yes - Time Time Spent with patient: 25-34 minutes Critical Time spent with patient: 15-24 minutes Medications reviewed and adjusted accordingly: Yes Anticipated discharge: Home Within: within 48 hours
[2016-11-27] MEDS ORDERED: ASPIRIN 81 MG TABLET, CHEWABLE PO ONE (11:45)
[2016-11-27] MEDS: ATORVASTATIN CALCIUM 20 MG TABLET PO SCH (21:19)
[2016-11-27] MEDS: DONEPEZIL HCL 5 MG TABLET PO SCH (21:19)
[2016-11-27] MEDS ORDERED: NIFEDIPINE 10 MG CAPSULE PO SCH (22:00)
[2016-11-27] MEDS ORDERED: CEFTRIAXONE 1 GM/D5W RTU 1 GM/50 ML RTUPB IV SCH (22:00)
[2016-11-28] MEDS ORDERED: (PENDING PHARMACY ID) (Cyanocobalamin (Vitamin B-12) [Vitamin B12] 2,500 MCG) PO SCH (08:00)
[2016-11-28] MEDS: DIPYRIDAMOLE 25 MG TABLET PO SCH (11:15)
[2016-11-28] MEDS: MEMANTINE HCL 10 MG TABLET PO SCH ×2 (11:16→18:12)
[2016-11-28] MEDS: CYANOCOBALAMIN (VITAMIN B-12) 1,000 MCG TABLET PO SCH (11:16)
[2016-11-28] MEDS: ESCITALOPRAM OXALATE 10 MG TABLET PO SCH (11:16)
[2016-11-28] MEDS: METOPROLOL SUCCINATE 50 MG TAB.SR.24H PO SCH (11:17)
[2016-11-28] MEDS: HYDRALAZINE HCL 50 MG TABLET PO SCH ×2 (11:17→22:58)
[2016-11-28] MEDS: NIFEDIPINE 10 MG CAPSULE PO SCH ×2 (11:18→22:58)
[2016-11-28] MEDS: CEFUROXIME 250 MG/5 ML SUSP 50 ML PO SCH ×2 (11:18→22:57)
[2016-11-28] MEDS: PHENYTOIN SODIUM EXTENDED 100 MG CAPSULE PO SCH ×2 (11:18→22:58)
[2016-11-28] MEDS: ENOXAPARIN SODIUM INJ 40 MG/0.4 ML DISP.SYRIN SUBCUT SCH (11:19)
--- NOTE | 2016-11-28 11:42 | PDOC PROGRESS REPORT ---
Subjective Progress Note for:: 11/28/16 Subjective:: Patient is seen on morning rounds. She is awake and alert but confused 3. She has her part time flexible clerk at bedside. She states she's getting closer to her baseline mentality and behaviors. She is much more alert today. She has been eating and drinking better. No family members are presently at the bedside. Review of systems is presently unobtainable due to patient's mentation. Physical Exam Vital Signs: Temp Pulse Resp BP Pulse Ox 97.3 F 84 19 186/67 H 100 11/28/16 08:41 11/28/16 08:41 11/28/16 08:41 11/28/16 08:41 11/28/16 08:41 Intake & Output 11/27/16 11/28/16 11/29/16 06:59 06:59 06:59 Intake Total 2870 1497 Balance 2870 1497 Weight 61.8 kg General appearance: PRESENT: no acute distress, thin, well-developed, well- nourished Head exam: PRESENT: atraumatic Eye exam: PRESENT: conjunctiva pink, EOMI, PERRLA. ABSENT: scleral icterus Ear exam: PRESENT: normal external ear exam Mouth exam: PRESENT: moist, tongue midline Neck exam: ABSENT: carotid bruit, JVD, lymphadenopathy, thyromegaly Respiratory exam: PRESENT: clear to auscultation martita. ABSENT: rales, rhonchi, wheezes Cardiovascular exam: PRESENT: RRR. ABSENT: diastolic murmur, rubs, systolic murmur Pulses: PRESENT: normal dorsalis pedis pul Vascular exam: PRESENT: normal capillary refill GI/Abdominal exam: PRESENT: normal bowel sounds, soft. ABSENT: distended, guarding, mass, organolmegaly, rebound, tenderness Rectal exam: PRESENT: deferred Extremities exam: PRESENT: full ROM. ABSENT: calf tenderness, clubbing, pedal edema Musculoskeletal exam: PRESENT: full ROM, normal inspection Neurological exam: PRESENT: alert, altered, CN II-XII grossly intact Psychiatric exam: PRESENT: appropriate affect, normal mood. ABSENT: homicidal ideation, suicidal ideation Skin exam: PRESENT: dry, intact, warm. ABSENT: cyanosis, rash Results Laboratory Results: 11/27/16 05:01 11/27/16 05:01 Impressions: Chest X-Ray 11/26/16 00:00 IMPRESSION: NO ACUTE RADIOGRAPHIC FINDING IN THE CHEST. Assessment & Plan - Diagnosis (1) Acute encephalopathy Is this a current diagnosis for this admission?: YesPlan: Likely secondary to urinary tract infection.Resolving. We have transitioned from IV to oral antibiotics. Will plan for discharge home tomorrow (2) Urinary tract infection Qualifiers: Urinary tract infection type: site unspecified Hematuria presence: without hematuria Qualified Code(s): N39.0 - Urinary tract infection, site not specified Is this a current diagnosis for this admission?: YesPlan: Transitioning her from IV Rocephin to oral Ceftin in preparation for discharge (3) Dysphasia Is this a current diagnosis for this admission?: YesPlan: Patient was evaluated by speech therapy to recommended diet of thickened liquids and soft (4) HTN (hypertension) Qualifiers: Hypertension type: essential hypertension Qualified Code(s): I10 - Essential (primary) hypertension Is this a current diagnosis for this admission?: YesPlan: Continue home antihypertensives. (5) Dementia Qualifiers: Dementia type: unspecified type Dementia behavioral disturbance: without behavioral disturbance Qualified Code(s): F03.90 - Unspecified dementia without behavioral disturbance Is this a current diagnosis for this admission?: YesPlan: Continue home medications (6) Vitamin B12 deficiency anemia Qualifiers: Vitamin B12 deficiency anemia type: unspecified B12 deficiency Qualified Code(s): D51.9 - Vitamin B12 deficiency anemia, unspecified Is this a current diagnosis for this admission?: YesPlan: Continue B12 supplements (7) Cerebral vascular disease Is this a current diagnosis for this admission?: Yes (8) DNR (do not resuscitate) Is this a current diagnosis for this admission?: Yes - Time Time Spent with patient: 25-34 minutes Critical Time spent with patient: 15-24 minutes Medications reviewed and adjusted accordingly: Yes Anticipated discharge: Home Within: within 24 hours
[2016-11-28] MEDS: ATORVASTATIN CALCIUM 20 MG TABLET PO SCH (22:57)
[2016-11-28] MEDS: DONEPEZIL HCL 5 MG TABLET PO SCH (22:58)
[2016-11-29] MEDS ORDERED: POTASSI CL 20 MEQ/NS 1L 1000 ML IV PRN (01:14)
[2016-11-29] MEDS ORDERED: LIDOCAINE 2% INJ-PF (100 MG/5 ML) SYRINGE IV ONE (01:30)
[2016-11-29 04:28] LABS: ABSOLUTE EOSINOPHILS # (AUTO) 0.3 10^3/uL (0.0-0.6); ABSOLUTE MONOCYTES (AUTO) 1.1 10^3/uL (0.1-1.4); ABSOLUTE NEUT (AUTO) 7.4 10^3/uL (1.7-8.2); BASOPHILS % (AUTO) 0.2 % (0-2); EOSINOPHILS % (AUTO) 2.6 % (0-6); HEMATOCRIT 26.7 % (36.0-47.0); HEMOGLOBIN 8.9 g/dL (12.0-15.5); LYMPHOCYTES % (AUTO) 18.5 % (13-45); MEAN CORPUSCULAR HGB CONC 33.3 g/dL (32.0-36.0); MEAN CORPUSCULAR VOLUME 99 fl (80-97); MONOCYTES % (AUTO) 10.3 % (3-13); RED BLOOD COUNT 2.69 10^6/uL (3.72-5.28); RED CELL DISTRIBUTION WIDTH 14.4 % (11.5-14.0); SEGMENTED NEUTROPHILS % (AUTO) 68.4 % (42-78); WHITE BLOOD COUNT 10.8 10^3/uL (4.0-10.5)
[2016-11-29 04:50] LABS: ANION GAP 10 (5-19); BLOOD UREA NITROGEN 13 mg/dL (7-20); CALCIUM 8.1 mg/dL (8.4-10.2); CARBON DIOXIDE 22 mmol/L (22-30); CHLORIDE 108 mmol/L (98-107); CREATININE RESULT 0.59 mg/dL (0.52-1.25); GLUCOSE 114 mg/dL (75-110); POTASSIUM 3.8 mmol/L (3.6-5.0)
[2016-11-29] MEDS: CYANOCOBALAMIN (VITAMIN B-12) 1,000 MCG TABLET PO SCH (07:33)
[2016-11-29] MEDS: ENOXAPARIN SODIUM INJ 40 MG/0.4 ML DISP.SYRIN SUBCUT SCH (07:34)
[2016-11-29] MEDS: HYDRALAZINE HCL 50 MG TABLET PO SCH (09:51)
[2016-11-29] MEDS: DIPYRIDAMOLE 25 MG TABLET PO SCH (09:51)
[2016-11-29] MEDS: ESCITALOPRAM OXALATE 10 MG TABLET PO SCH (09:52)
[2016-11-29] MEDS: METOPROLOL SUCCINATE 50 MG TAB.SR.24H PO SCH (09:52)
[2016-11-29] MEDS: NIFEDIPINE 10 MG CAPSULE PO SCH (09:52)
[2016-11-29] MEDS: MEMANTINE HCL 10 MG TABLET PO SCH (09:52)
[2016-11-29] MEDS: PHENYTOIN SODIUM EXTENDED 100 MG CAPSULE PO SCH (09:52)
[2016-11-29] MEDS: CEFUROXIME 250 MG/5 ML SUSP 50 ML PO SCH (09:54)
--- NOTE | 2016-11-29 10:59 | PDOC DISCHARGE SUMMARY ---
General - Admit/Disc Date/PCP Admission Date/Primary Care Provider: 11/26/16 09:38 DELISA MCLEAN MD Discharge Date: 11/29/16 - Discharge Diagnosis (1) Acute encephalopathy Is this a current diagnosis for this admission?: YesSummary: Back to baseline (2) Urinary tract infection Is this a current diagnosis for this admission?: YesSummary: Continue antibiotics for 5 more days (3) Dysphasia Is this a current diagnosis for this admission?: YesSummary: Continue pureed diet with thickened liquids (4) HTN (hypertension) Is this a current diagnosis for this admission?: YesSummary: Continue current medications (5) Dementia Is this a current diagnosis for this admission?: Yes (6) Vitamin B12 deficiency anemia Is this a current diagnosis for this admission?: Yes (7) Cerebral vascular disease Is this a current diagnosis for this admission?: Yes (8) DNR (do not resuscitate) Is this a current diagnosis for this admission?: Yes - Additional Information Resuscitation Status: Do Not Resuscitate Discharge Activity: Activity As Tolerated Home Medications: Aspirin/Dipyridamole [Aggrenox 25 mg-200 mg Capsule] 1 each PO Q12 11/26/16 Atorvastatin Calcium [Lipitor 20 mg Tablet] 20 mg PO QHS 11/26/16 Cyanocobalamin (Vitamin B-12) [Vitamin B12] 2,500 mcg PO QAM 11/26/16 Donepezil HCl [Aricept 5 mg Tablet] 5 mg PO QHS 11/26/16 Escitalopram Oxalate [Lexapro 10 mg Tablet] 10 mg PO DAILY 11/26/16 Hydralazine HCl [Apresoline 50 mg Tablet] 100 mg PO Q12 11/26/16 Memantine HCl [Namenda 10 mg Tablet] 10 mg PO BID 11/26/16 Metoprolol Succinate [Toprol Xl 50 mg Tab.sr] 50 mg PO DAILY 11/26/16 Nifedipine [Nifedipine ER] 60 mg PO DAILY 11/26/16 Phenytoin Sodium Extended [Dilantin 100 mg Capsule.er] 100 mg PO Q12 11/26/16 Phenytoin Sodium Extended [Dilantin] 60 mg PO DAILY 11/26/16 Zolpidem Tartrate [Ambien Cr] 12.5 mg PO HSP PRN 11/26/16 Acetaminophen [Tylenol 650 mg Supp] 650 mg LA Q4HP PRN supp.rect 11/29/16 Cefuroxime Axetil [Ceftin Susp 250 mg/5 ml 50 ml] 250 mg PO Q12 #50 ml 11/29/16 History of Present Illness History of Present Illness: GISELLE PUTNAM is a 86 year old female With underlying hypertension, hyperlipidemia, dementia, seizure disorder, with only one seizure episode 3 years ago, prior stroke several months ago which has left her with expressive dysphasia, discharged from our facility on the fifth of this month for urinary tract infection, who presents to the emergency room for evaluation of above complaint. Patient has been discussed with emergency room physician who evaluated the patient. Patient is somewhat fatigued, and has pronounced expressive dysphasia from recent stroke and is able to provide no history whatsoever in terms of acute or chronic events, review of systems, personal habits, family history, etc. 2 female caretakers are present. Old inpatient records are reviewed. Fever 101.7 upon EMS arrival. Emergency room physician notes reviewed. No further information available this point in time. . Hospitalized on our service the second through the fifth of this month with discharge diagnoses including urinary tract infection with resulting sepsis, among other diagnoses. History and physical and discharge summary reviewed. Comment is made in her discharge summary that son-in-law stated that patient' s daughter at times can be belligerent and to notify him if daughter should arrive. Hospital Course Hospital Course: Patient was admitted to the hospitalist service on telemetry. She was recultured blood in urine and empirically started on IV antibiotics. She was gently rehydrated with IV fluids. She improvement of her acute kidney injury back to baseline. Cultures remained negative at 48 hours. She was transitioned to oral antibiotic therapy. She became much more alert and cooperative with her baseline pleasant confusion. Her leucocytosis has resolved. She is eating and drinking well. ROSELINE has resolved. She has 24hr caretakers at home . Physical Exam Vital Signs: Temp Pulse Resp BP Pulse Ox 97.6 F 81 18 128/83 H 98 11/29/16 10:19 11/29/16 10:19 11/29/16 10:19 11/29/16 10:19 11/29/16 10:19 Intake & Output 11/28/16 11/29/16 11/30/16 06:59 06:59 06:59 Intake Total 1497 669 Balance 1497 669 Weight 61.8 kg 59.3 kg General appearance: PRESENT: no acute distress, thin, well-developed, well- nourished Head exam: PRESENT: atraumatic, normocephalic Eye exam: PRESENT: conjunctiva pink, EOMI, PERRLA. ABSENT: scleral icterus Ear exam: PRESENT: normal external ear exam Mouth exam: PRESENT: dry mucosa Neck exam: ABSENT: carotid bruit, JVD, lymphadenopathy, thyromegaly Respiratory exam: PRESENT: accessory muscle use Cardiovascular exam: PRESENT: RRR. ABSENT: diastolic murmur, rubs, systolic murmur Pulses: PRESENT: normal dorsalis pedis pul Vascular exam: PRESENT: normal capillary refill GI/Abdominal exam: PRESENT: normal bowel sounds, soft. ABSENT: distended, guarding, mass, organolmegaly, rebound, tenderness Rectal exam: PRESENT: deferred Extremities exam: PRESENT: full ROM. ABSENT: calf tenderness, clubbing, pedal edema Neurological exam: PRESENT: alert, altered, CN II-XII grossly intact Psychiatric exam: PRESENT: appropriate affect, normal mood. ABSENT: homicidal ideation, suicidal ideation Skin exam: PRESENT: dry, intact, warm. ABSENT: cyanosis, rash Results Laboratory Results: 11/29/16 03:43 11/29/16 03:43 11/29/16 11/29/16 03:43 03:43 WBC 10.8 H RBC 2.69 L Hgb 8.9 L Hct 26.7 L MCV 99 H MCH 33.0 MCHC 33.3 RDW 14.4 H Plt Count 225 Seg Neutrophils % 68.4 Lymphocytes % 18.5 Monocytes % 10.3 Eosinophils % 2.6 Basophils % 0.2 Absolute Neutrophils 7.4 Absolute Lymphocytes 2.0 Absolute Monocytes 1.1 Absolute Eosinophils 0.3 Absolute Basophils 0.0 Sodium 140.0 Potassium 3.8 Chloride 108 H Carbon Dioxide 22 Anion Gap 10 BUN 13 Creatinine 0.59 Est GFR ( Amer) > 60 Est GFR (Non-Af Amer) > 60 Glucose 114 H Calcium 8.1 L Impressions: Chest X-Ray 11/26/16 00:00 IMPRESSION: NO ACUTE RADIOGRAPHIC FINDING IN THE CHEST. Qualifiers PATEINT BEING DISCHARGED WITH ANY OF THE FOLLOWING DIAGNOSIS?: No VTE patient discharged on overlapping Therapy?: Yes Plan Discharge Plan: Home with family and 24 hr caretakers
[2016-11-29 11:41] VITALS: BP 136/44
== END 2016-11-29 13:16 | disposition home health service (06) | DRG 689 ==
LOC: ER 23:06 → EH 11-26 03:14 → UNDOADMOB 11-26 03:14 → EH 11-26 03:57 → 5 11-26 05:42 → OBSVTOIN 11-26 09:38
PROVIDERS: ADMIT Family Medicine; ATTEND Family Medicine
DX: N39.0 Urinary tract infection, site not specified (principal); G93.49 Other encephalopathy; I10 Essential (primary) hypertension; I69.921 Dysphasia following unspecified cerebrovascular disease; B96.20 Unspecified Escherichia coli [E. coli] as the cause of diseases classified elsewhere; R47.02 Dysphasia; F03.90 Unspecified dementia, unspecified severity, without behavioral disturbance, psychotic disturbance, mood disturbance, and anxiety; D51.9 Vitamin B12 deficiency anemia, unspecified; F41.9 Anxiety disorder, unspecified; Z66 Do not resuscitate; E87.6 Hypokalemia; D72.829 Elevated white blood cell count, unspecified; E78.5 Hyperlipidemia, unspecified; G40.909 Epilepsy, unspecified, not intractable, without status epilepticus; M19.90 Unspecified osteoarthritis, unspecified site; Z90.710 Acquired absence of both cervix and uterus; Z85.3 Personal history of malignant neoplasm of breast; Z79.82 Long term (current) use of aspirin; Z78.1 Physical restraint status; Z82.3 Family history of stroke
CPT/HCPCS: 36415; 71010; 80048; 80053; 81001; 83735; 85025; 85027; 87040; 87086; 96365; 99285; G0378; G8996-GN; G8997-GN; G8998-GN; J0696; J1335; J1650; J3480; J3490

== ENCOUNTER 2017-01-29 23:24 | Emergency (ER) | payer MEDICARE ==
[2017-01-29] MEDS ORDERED: NORMAL SALINE 1000 ML 1,000 ML IV ONE (23:55)
--- NOTE | 2017-01-29 23:55 | ER Document Report ---
ED General - General Mode of Arrival: Wheelchair Information source: Friend - Caretakers TRAVEL OUTSIDE OF THE [place] IN LAST 30 DAYS: No - HPI Onset: Other - Refer to HPI notes Similar symptoms previously: No Recently seen / treated by doctor: No <XAVIER VILLEGAS - Last Filed: 01/30/17 06:29> <RAJAN OVALLES - Last Filed: 01/30/17 06:31> - General Chief Complaint: Other Stated Complaint: FEVER Time Seen by Provider: 01/29/17 23:34 Notes: Patient is an 86-year-old female presenting to the emergency department for an episode of coughing and diaphoresis. Patient was brought to the emergency department by her 2 caretakers. Patient was fine throughout the day and this evening had an episode of coughing where she appeared to be trying to clear her throat. Patient is usually given some Ambien around 22:00 to help her sleep; around this time the patient's case technician noted that the patient was very diaphoretic and warm to touch and had red circles around her eyes. Patient also has been taking Doxycycline for an open wound to her ankle; caretakers state it started as a blister. Patient is oriented to place but not time or events. Patient's history is provided by the caretakers. Patient has a history of seizures, stroke, and frequent UTIs. Patient is a former smoker. (XAVIER VILLEGAS ) - Related Data Allergies/Adverse Reactions: No Known Allergies Allergy (Verified 11/20/16 12:07) Past Medical History - General Information source: Patient - Social History Smoking Status: Never Smoker Cigarette use (# per day): No Chew tobacco use (# tins/day): No Smoking Education Provided: No Frequency of alcohol use: None Drug Abuse: None Family History: CVA, Hypertension - Past Medical History Cardiac Medical History: Reports: Hx Hypercholesterolemia, Hx Hypertension, Hx Heart Murmur - Mitral valve prolapse Neurological Medical History: Reports: Hx Cerebrovascular Accident, Hx Seizures - One episode 2012 or 2013. Malignancy Medical History: Reports: Hx Breast Cancer - Status post lumpectomy for same Musculoskeltal Medical History: Reports Hx Arthritis Psychiatric Medical History: Reports: Hx Anxiety, Hx Dementia, Hx Depression Past Surgical History: Reports: Hx Breast Surgery - Lumpectomy for breast carcinoma., Hx Hysterectomy, Other - Excision of facial skin lesions. - Immunizations Hx Diphtheria, Pertussis, Tetanus Vaccination: Yes - 2009 Hx Pneumococcal Vaccination: 03/22/16 <XAVIER VILLEGAS - Last Filed: 01/30/17 06:29> Review of Systems - Review of Systems Constitutional: See HPI, Diaphoresis EENT: No symptoms reported Cardiovascular: No symptoms reported Respiratory: See HPI, Cough Gastrointestinal: No symptoms reported Genitourinary: No symptoms reported Female Genitourinary: No symptoms reported Musculoskeletal: No symptoms reported Skin: No symptoms reported Hematologic/Lymphatic: No symptoms reported Neurological/Psychological: See HPI -: Yes All other systems reviewed and negative <XAVIER VILLEGAS - Last Filed: 01/30/17 06:29> Physical Exam <XAVIER VILLEGAS - Last Filed: 01/30/17 06:29> <RAJAN OVALLES - Last Filed: 01/30/17 06:31> - Vital signs Vitals: Pulse Ox 97 01/29/17 23:34 - Notes Notes: GENERAL: Alert, pleasant, difficulty answering questions. No acute distress. HEAD: Normocephalic, atraumatic. EYES: Pupils equal, round, and reactive to light. Extraocular movements intact. ENT: Oral mucosa moist, tongue midline. NECK: Full range of motion. Supple. Trachea midline. LUNGS: Clear to auscultation bilaterally, no wheezes, rales, or rhonchi. No respiratory distress. HEART: Regular rate and rhythm. No murmurs, gallops, or rubs. ABDOMEN: Soft, non-tender. Non-distended. Bowel sounds present in all 4 quadrants. EXTREMITIES: Moves all 4 extremities spontaneously. No edema, radial and dorsalis pedis pulses 2/4 bilaterally. No cyanosis. NEUROLOGICAL: Alert. Oriented to place but not to time or events. Normal speech. PSYCH: Normal affect, normal mood. SKIN: Warm, dry, normal turgor. Small wound to the medial aspect of the left heel, no surrounding erythema. (XAVIER VILLEGAS) Course - Laboratory Result Diagrams: 01/30/17 00:20 01/30/17 00:20 <XAVIER VILLEGAS - Last Filed: 01/30/17 06:29> - Laboratory Result Diagrams: 01/30/17 00:20 01/30/17 00:20 <RAJAN OVALLES - Last Filed: 01/30/17 06:31> - Re-evaluation Re-evalutation: 01/30/17 02:36 CBC shows leukocytosis of 14.8 with mild anemia hemoglobin 11.4, coags essentially normal, venous blood gas unconcerning, CMP grossly unremarkable, urinalysis which was a catheterized specimen shows large leukocyte esterase and greater than 182 WBCs. Patient is started on Rocephin, this was sent for culture. Patient will be sent home on Keflex by mouth. Chest x-ray does not show any pneumonia. Lactic acid normal, no evidence of sepsis. Patient will be discharged home. ( RAJAN OVALLES) - Vital Signs Vital signs: Temp Pulse Resp BP Pulse Ox 97.9 F 73 20 136/54 H 97 01/30/17 04:32 01/30/17 04:32 01/30/17 04:32 01/30/17 04:32 01/30/17 04:32 - Laboratory Laboratory results interpreted by me: 01/30/17 01/30/17 01/30/17 00:20 00:20 00:20 WBC 14.8 H RBC 3.51 L Hgb 11.4 L Hct 35.9 L MCV 102 H MCHC 31.7 L RDW 15.2 H Absolute Neutrophils 10.8 H VBG pH 7.43 H BUN 28 H Glucose 132 H Albumin 3.4 L Urine Protein Ur Leukocyte Esterase Urine Ascorbic Acid 01/30/17 00:39 WBC RBC Hgb Hct MCV MCHC RDW Absolute Neutrophils VBG pH BUN Glucose Albumin Urine Protein 30 H Ur Leukocyte Esterase LARGE H Urine Ascorbic Acid 40 H - EKG Interpretation by Me Additional EKG results interpreted by me: 01/30/17 02:37 EKG shows what actually appears to be sinus rhythm at a rate of 67, I do not see atrial flutter as per the EKG, normal axis, first-degree AV block, no ST segment elevations or depressions, no T-wave inversions per my interpretation. ( RAJAN OVALLES) Discharge <XAVIER VILLEGAS - Last Filed: 01/30/17 06:29> <RAJAN OVALLES - Last Filed: 01/30/17 06:31> - Discharge Clinical Impression: Urinary tract infection Qualifiers: Urinary tract infection type: acute cystitis Hematuria presence: with hematuria Qualified Code(s): N30.01 - Acute cystitis with hematuria Dementia Qualifiers: Dementia type: Alzheimer's disease Alzheimer's disease onset: late-onset Dementia behavioral disturbance: without behavioral disturbance Qualified Code(s ): G30.1 - Alzheimer's disease with late onset HTN (hypertension) Qualifiers: Hypertension type: essential hypertension Qualified Code(s): I10 - Essential ( primary) hypertension Condition: Stable Disposition: HOME, SELF-CARE Additional Instructions: You have a urinary tract infection.It does not appear to be life-threatening today. Please take all of your antibiotics as directed until is gone. Should she become significantly more confused, had difficulty responding to, or develop any new or concerning symptoms please return to the emergency department. Prescriptions: Cephalexin Monohydrate [Keflex 500 mg Capsule] 500 mg PO QID #28 capsule Referrals: DELISA MCLEAN MD [Primary Care Provider] - Follow up in 3-5 days Scribe Attestation: 01/30/17 06:31 I personally performed the services described in the documentation, reviewed and edited the documentation which was dictated to the scribe in my presence, and it accurately records my words and actions. (RAJAN OVALLES) Scribe Documentation - Scribe Written by Aaron:: Aaron Israel, 01/30/2017 3:46 acting as scribe for :: Odalis <XAVIER VILLEGAS - Last Filed: 01/30/17 06:29>
[2017-01-30 00:33] LABS: ABSOLUTE EOSINOPHILS # (AUTO) 0.3 10^3/uL (0.0-0.6); ABSOLUTE LYMPHOCYTES (AUTO) 2.2 10^3/uL (0.5-4.7); ABSOLUTE MONOCYTES (AUTO) 1.4 10^3/uL (0.1-1.4); ABSOLUTE NEUT (AUTO) 10.8 10^3/uL (1.7-8.2); BASOPHILS % (AUTO) 0.3 % (0-2); HEMATOCRIT 35.9 % (36.0-47.0); HEMOGLOBIN 11.4 g/dL (12.0-15.5); HGB HCT DIFFERENCE -1.7; LYMPHOCYTES % (AUTO) 15.1 % (13-45); MEAN CORPUSCULAR HEMOGLOBIN 32.4 pg (27.0-33.4); MEAN CORPUSCULAR HGB CONC 31.7 g/dL (32.0-36.0); MEAN CORPUSCULAR VOLUME 102 fl (80-97); MONOCYTES % (AUTO) 9.3 % (3-13); RED BLOOD COUNT 3.51 10^6/uL (3.72-5.28); RED CELL DISTRIBUTION WIDTH 15.2 % (11.5-14.0); SEGMENTED NEUTROPHILS % (AUTO) 73.3 % (42-78); WHITE BLOOD COUNT 14.8 10^3/uL (4.0-10.5)
[2017-01-30 00:34] LABS: VENOUS BLOOD BASE EXCESS 0.3 mmol/L; VENOUS BLOOD HCO3 24.2 mmol/L (20-32); VENOUS BLOOD PH 7.43 (7.30-7.42)
[2017-01-30 00:48] LABS: PROTHROMBIN TIME 14.6 SEC (11.4-15.4)
[2017-01-30 00:57] LABS: ALANINE AMINOTRANSFERASE 50 U/L (9-52); ALBUMIN 3.4 g/dL (3.5-5.0); ALKALINE PHOSPHATASE 104 U/L (38-126); ANION GAP 11 (5-19); ASPARTATE AMINO TRANSFERASE 33 U/L (14-36); BILIRUBIN,DIRECT 0.3 mg/dL (0.0-0.4); BILIRUBIN,TOTAL 0.3 mg/dL (0.2-1.3); BLOOD UREA NITROGEN 28 mg/dL (7-20); CALCIUM 9.2 mg/dL (8.4-10.2); CARBON DIOXIDE 23 mmol/L (22-30); CHLORIDE 104 mmol/L (98-107); CREATININE RESULT 0.63 mg/dL (0.52-1.25); GLUCOSE 132 mg/dL (75-110); SODIUM 137.8 mmol/L (137-145); TOTAL PROTEIN 6.6 g/dL (6.3-8.2)
[2017-01-30 01:02] LABS: APPEARANCE,URINE TURBID; BILIRUBIN,URINE NEGATIVE (NEGATIVE); GLUCOSE, URINE NEGATIVE (NEGATIVE); KETONES,URINE NEGATIVE (NEGATIVE); LEUKOCYTE ESTERASE,URINE LARGE (NEGATIVE); NITRITE,URINE NEGATIVE (NEGATIVE); PROTEIN,URINE 30 mg/dL (NEGATIVE); URINE SPECIFIC GRAVITY 1.017; UROBILINOGEN,URINE NEGATIVE mg/dL (<2.0)
[2017-01-30] MEDS ORDERED: CEFTRIAXONE 1 GM/D5W RTU 50 ML IV ONE (01:26)
--- NOTE | 2017-01-30 02:29 | RADIOLOGY REPORT (SQ) ---
EXAM DESCRIPTION: CHEST PA/LAT COMPLETED DATE/TIME: 01/30/2017 2:05 am REASON FOR STUDY: fever, cough COMPARISON: Chest x-ray 11/26/2016, 08/05/2016, 06/05/2016. EXAM PARAMETERS: NUMBER OF VIEWS: two views TECHNIQUE: Digital Frontal and Lateral radiographic views of the chest acquired. RADIATION DOSE: NA LIMITATIONS: none FINDINGS: LUNGS AND PLEURA: No consolidation, pneumothorax or pleural effusion. MEDIASTINUM AND HILAR STRUCTURES: No masses or contour abnormalities. HEART AND VASCULAR STRUCTURES: Heart normal size. No evidence for failure. BONES: There is osteopenia. Multilevel degenerative changes are seen in the spine. HARDWARE: None in the chest. IMPRESSION: No acute radiographic finding in the chest. TECHNICAL DOCUMENTATION: JOB ID: [id number] [employer]- All Rights Reserved
[2017-01-30 03:44] VITALS: BP 136/54
--- NOTE | 2017-01-30 08:11 | EKG REPORT ---
SEVERITY:- ABNORMAL ECG - SINUS RHYTHM. NONSPECIFIC T ABNORMALITIES, INFERIOR LEADS : Confirmed by: Matt Smith MD 30-Jan-2017 08:10:42
== END 2017-01-30 04:00 | disposition home or self-care (01) ==
LOC: ER 23:24
DX: N30.01 Acute cystitis with hematuria (principal); G30.1 Alzheimer's disease with late onset; I10 Essential (primary) hypertension; R50.9 Fever, unspecified; R05 Cough; R61 Generalized hyperhidrosis; E78.00 Pure hypercholesterolemia, unspecified; Z87.440 Personal history of urinary (tract) infections; Z86.73 Personal history of transient ischemic attack (TIA), and cerebral infarction without residual deficits; Z85.3 Personal history of malignant neoplasm of breast; Z90.710 Acquired absence of both cervix and uterus
CPT/HCPCS: 93005; 99285; 96361; 51701; 96365; 36415; 87040; 87086; 85025; 85610; 80053; 81001; 82803; 83605; 71020; 93010; J7030; J0696

== ENCOUNTER 2017-04-12 11:26 | Emergency (ER) | payer MEDICARE ==
--- NOTE | 2017-04-12 11:48 | ER Document Report ---
ED Medical Screen (RME) - General Chief Complaint: Urinary Problem Stated Complaint: URINARY ISSUES Time Seen by Provider: 04/12/17 11:44 Notes: 87-year-old female patient complaining of pelvic pain, she has a history of frequent urinary tract infections. I have greeted and performed a rapid initial assessment of this patient. A comprehensive ED assessment and evaluation of the patient, analysis of test results and completion of the medical decision making process will be conducted by additional ED providers. TRAVEL OUTSIDE OF THE [place] IN LAST 30 DAYS: No - Related Data Allergies/Adverse Reactions: No Known Allergies Allergy (Verified 04/12/17 11:30) Past Medical History - Past Medical History Cardiac Medical History: Reports: Hx Hypercholesterolemia, Hx Hypertension, Hx Heart Murmur - Mitral valve prolapse Denies: Hx Congestive Heart Failure, Hx DVT, Hx Heart Attack, Hx Pulmonary Embolism Pulmonary Medical History: Denies: Hx Asthma, Hx COPD Neurological Medical History: Reports: Hx Cerebrovascular Accident, Hx Seizures - One episode 2012 or 2013. Endocrine Medical History: Denies: Hx Diabetes Mellitus Type 1, Hx Diabetes Mellitus Type 2, Hx Hyperthyroidism, Hx Hypothyroidism Renal/ Medical History: Denies: Hx Peritoneal Dialysis Malignancy Medical History: Reports: Hx Breast Cancer - Status post lumpectomy for same GI Medical History: Denies: Hx Cirrhosis, Hx Gastroesophageal Reflux Disease, Hx Hepatitis Musculoskeltal Medical History: Reports Hx Arthritis Psychiatric Medical History: Reports: Hx Anxiety, Hx Dementia, Hx Depression Infectious Medical History: Denies: Hx Hepatitis Past Surgical History: Reports: Hx Breast Surgery - Lumpectomy for breast carcinoma., Hx Hysterectomy, Other - Excision of facial skin lesions. - Immunizations Hx Diphtheria, Pertussis, Tetanus Vaccination: Yes - 2009 Physical Exam - Vital signs Vitals: Temp Pulse Resp BP Pulse Ox 98.4 F 80 18 156/82 H 96 04/12/17 11:29 04/12/17 11:04/12/17 11:04/12/17 11:29 04/12/17 11:29 Course - Vital Signs Vital signs: Temp Pulse Resp BP Pulse Ox 98.4 F 80 18 156/82 H 96 04/12/17 11:29 04/12/17 11:29 04/12/17 11:29 04/12/17 11:29 04/12/17 11:29
[2017-04-12 12:25] LABS: APPEARANCE,URINE TURBID; BILIRUBIN,URINE NEGATIVE (NEGATIVE); GLUCOSE, URINE NEGATIVE (NEGATIVE); KETONES,URINE NEGATIVE (NEGATIVE); LEUKOCYTE ESTERASE,URINE LARGE (NEGATIVE); NITRITE,URINE NEGATIVE (NEGATIVE); PROTEIN,URINE 30 mg/dL (NEGATIVE); URINE SPECIFIC GRAVITY 1.013; UROBILINOGEN,URINE NEGATIVE mg/dL (<2.0)
[2017-04-12] MEDS ORDERED: CEFTRIAXONE INJ 1000 MG VIAL IM ONE (12:47)
[2017-04-12] MEDS ORDERED: LIDOCAINE 1% INJ-PF (10 MG/ML) 30 ML SDV INFIL ONE (12:47)
--- NOTE | 2017-04-12 12:52 | ER Document Report ---
ED General - General Chief Complaint: Urinary Problem Stated Complaint: URINARY ISSUES Time Seen by Provider: 04/12/17 11:44 TRAVEL OUTSIDE OF THE [place] IN LAST 30 DAYS: No - HPI Patient complains to provider of: Urinary issues Notes: Patient presents to the ER today for urinary issues. According to the caregivers at bedside patient mostly is nonverbal towards them however has been thrusting her hand into her adult diaper holding her genitals states is been ongoing issue for the last few days patient caregiver does state that her son-in -law be related him that the patient apparently complained of urinary discomfort to himself no fever no chills no night sweats. Caregivers at bedside states this is a chronic issue for the patient. Upon my evaluation patient is lying comfortably in bed in no obvious distress - Related Data Allergies/Adverse Reactions: No Known Allergies Allergy (Verified 04/12/17 11:30) Past Medical History - Social History Smoking Status: Former Smoker Chew tobacco use (# tins/day): Yes Frequency of alcohol use: None Drug Abuse: None Family History: CVA, Hypertension - Past Medical History Cardiac Medical History: Reports: Hx Hypercholesterolemia, Hx Hypertension, Hx Heart Murmur - Mitral valve prolapse Denies: Hx Congestive Heart Failure, Hx DVT, Hx Heart Attack, Hx Pulmonary Embolism Pulmonary Medical History: Denies: Hx Asthma, Hx COPD Neurological Medical History: Reports: Hx Cerebrovascular Accident, Hx Seizures - One episode 2012 or 2013. Endocrine Medical History: Denies: Hx Diabetes Mellitus Type 1, Hx Diabetes Mellitus Type 2, Hx Hyperthyroidism, Hx Hypothyroidism Renal/ Medical History: Denies: Hx Peritoneal Dialysis Malignancy Medical History: Reports: Hx Breast Cancer - Status post lumpectomy for same GI Medical History: Denies: Hx Cirrhosis, Hx Gastroesophageal Reflux Disease, Hx Hepatitis Musculoskeltal Medical History: Reports Hx Arthritis Psychiatric Medical History: Reports: Hx Anxiety, Hx Dementia, Hx Depression Infectious Medical History: Denies: Hx Hepatitis Past Surgical History: Reports: Hx Breast Surgery - Lumpectomy for breast carcinoma., Hx Hysterectomy, Other - Excision of facial skin lesions. - Immunizations Hx Diphtheria, Pertussis, Tetanus Vaccination: Yes - 2009 Hx Pneumococcal Vaccination: 03/22/16 Review of Systems - Review of Systems Constitutional: No symptoms reported EENT: No symptoms reported Cardiovascular: No symptoms reported Respiratory: No symptoms reported Gastrointestinal: No symptoms reported Genitourinary: Dysuria Female Genitourinary: No symptoms reported Musculoskeletal: No symptoms reported Skin: No symptoms reported Hematologic/Lymphatic: No symptoms reported Neurological/Psychological: No symptoms reported -: Yes All other systems reviewed and negative Physical Exam - Vital signs Vitals: Temp Pulse Resp BP Pulse Ox 98.4 F 80 18 156/82 H 96 04/12/17 11:29 04/12/17 11:29 04/12/17 11:29 04/12/17 11:29 04/12/17 11:29 Interpretation: Normal - General General appearance: Appears well, Alert - HEENT Head: Normocephalic, Atraumatic Eyes: Normal Pupils: PERRL - Respiratory Respiratory status: No respiratory distress Chest status: Nontender Breath sounds: Normal Chest palpation: Normal - Cardiovascular Rhythm: Regular Heart sounds: Normal auscultation Murmur: No - Abdominal Inspection: Normal Distension: No distension Bowel sounds: Normal Tenderness: Nontender Organomegaly: No organomegaly - Back Back: Normal, Nontender - Extremities General upper extremity: Normal inspection, Nontender, Normal color, Normal ROM , Normal temperature General lower extremity: Normal inspection, Nontender, Normal color, Normal ROM , Normal temperature, Normal weight bearing. No: Mirna's sign - Neurological Neuro grossly intact: Yes Cognition: Confused Aleena Coma Scale Eye Opening: Spontaneous Aleena Coma Scale Verbal: Oriented Aleena Coma Scale Motor: Obeys Commands [place] Coma Scale Total: 15 Sensory: Normal - Skin Skin Temperature: Warm Skin Moisture: Dry Skin Color: Normal Course - Re-evaluation Re-evalutation: 04/12/17 15:04 Urinalysis shows signs of urinary tract infection. Patient was given a dose of Rocephin here will send the patient home with Keflex instructed the caregivers that patient cannot swallow pills that he can open the capsules in place in her applesauce or other thickened liquid. Urine culture will be sent no signs of urosepsis or serious infections at this time will discharge home - Vital Signs Vital signs: Temp Pulse Resp BP Pulse Ox 98.3 F 82 16 148/84 H 98 04/12/17 13:20 04/12/17 13:20 04/12/17 13:20 04/12/17 13:20 04/12/17 13:20 - Laboratory Laboratory results interpreted by me: 04/12/17 12:09 Urine Protein 30 H Ur Leukocyte Esterase LARGE H Urine Ascorbic Acid 40 H Discharge - Discharge Clinical Impression: UTI (urinary tract infection) Qualifiers: Urinary tract infection type: site unspecified Hematuria presence: with hematuria Qualified Code(s): N39.0 - Urinary tract infection, site not specified Condition: Good Disposition: HOME, SELF-CARE Instructions: Cephalexin ([facility]), Urinary Tract Infection ([facility]) Additional Instructions: Please take antibiotics as prescribed. We will see in your urine for culture. It will take approximately 48-72 hours for us to obtain those results if we need to change her antibiotic we will call you. Please make sure he follow-up with your primary care physician. Youmay take the capsules of Keflex and pulled them apart and mixed the antibiotic with her food Prescriptions: Cephalexin Monohydrate [Keflex 500 mg Capsule] 500 mg PO Q6H 7 Days capsule Referrals: DELISA MCLEAN MD [Primary Care Provider] - Follow up as needed
[2017-04-12 13:32] VITALS: BP 148/84
== END 2017-04-12 13:20 | disposition home or self-care (01) ==
LOC: ER 11:26
DX: N39.0 Urinary tract infection, site not specified (principal); R31.9 Hematuria, unspecified; I10 Essential (primary) hypertension; Z85.3 Personal history of malignant neoplasm of breast; Z87.891 Personal history of nicotine dependence
CPT/HCPCS: 99283; 96372; 51701; 81001; J3490; J0696

== ENCOUNTER 2017-07-21 16:37 | Emergency (ER) | payer MEDICARE ==
[2017-07-21 17:39] LABS: ABSOLUTE LYMPHOCYTES (AUTO) 2.9 10^3/uL (0.5-4.7); ABSOLUTE NEUT (AUTO) 4.4 10^3/uL (1.7-8.2); BASOPHILS % (AUTO) 0.3 % (0-2); EOSINOPHILS % (AUTO) 19.5 % (0-6); HEMATOCRIT 35.9 % (36.0-47.0); HEMOGLOBIN 11.8 g/dL (12.0-15.5); LYMPHOCYTES % (AUTO) 28.2 % (13-45); MEAN CORPUSCULAR HEMOGLOBIN 33.3 pg (27.0-33.4); MEAN CORPUSCULAR VOLUME 101 fl (80-97); MONOCYTES % (AUTO) 9.4 % (3-13); PLATELET COUNT 259 10^3/uL (150-450); RED BLOOD COUNT 3.55 10^6/uL (3.72-5.28); RED CELL DISTRIBUTION WIDTH 14.2 % (11.5-14.0); SEGMENTED NEUTROPHILS % (AUTO) 42.6 % (42-78); TOTAL CELLS COUNTED % (AUTO) 100 %; WHITE BLOOD COUNT 10.4 10^3/uL (4.0-10.5)
[2017-07-21 17:47] LABS: ALANINE AMINOTRANSFERASE 37 U/L (9-52); ALBUMIN 3.7 g/dL (3.5-5.0); ALKALINE PHOSPHATASE 76 U/L (38-126); ANION GAP 6 (5-19); ASPARTATE AMINO TRANSFERASE 31 U/L (14-36); BILIRUBIN,DIRECT 0.2 mg/dL (0.0-0.4); BILIRUBIN,TOTAL 0.2 mg/dL (0.2-1.3); BLOOD UREA NITROGEN 19 mg/dL (7-20); CALCIUM 9.4 mg/dL (8.4-10.2); CARBON DIOXIDE 31 mmol/L (22-30); CHLORIDE 104 mmol/L (98-107); GLUCOSE 86 mg/dL (75-110); TOTAL PROTEIN 6.7 g/dL (6.3-8.2)
[2017-07-21 17:52] LABS: AMORPHOUS SEDIMENT,URINE TRACE /HPF; APPEARANCE,URINE CLOUDY; BILIRUBIN,URINE NEGATIVE (NEGATIVE); COLOR,URINE YELLOW; GLUCOSE, URINE NEGATIVE (NEGATIVE); KETONES,URINE NEGATIVE (NEGATIVE); LEUKOCYTE ESTERASE,URINE LARGE (NEGATIVE); NITRITE,URINE POSITIVE (NEGATIVE); PROTEIN,URINE NEGATIVE (NEGATIVE); URINE SPECIFIC GRAVITY 1.015; UROBILINOGEN,URINE NEGATIVE mg/dL (<2.0)
[2017-07-21] MEDS ORDERED: CEFTRIAXONE 1 GM/D5W RTU 1 GM/50 ML RTUPB IV ONE (18:11)
--- NOTE | 2017-07-21 18:15 | ER Document Report ---
ED General - General Chief Complaint: Abdominal Pain Stated Complaint: DIZZINESS Time Seen by Provider: 07/21/17 17:13 Mode of Arrival: Medic Information source: Relative, Legal Guardian, Emergency Med Personnel Notes: This is an 87-year-old female with a history of dementia and recurrent UTIs lives at home. The assistance at home called EMS because the patient was complaining of abdominal pain and then dizziness. EMS reports that the patient had a bowel movement just prior to their arrival and the patient was denying any abdominal pain. In the emergency room, the patient denies any abdominal pain on my exam. TRAVEL OUTSIDE OF THE [place] IN LAST 30 DAYS: No - HPI Onset: Just prior to arrival Onset/Duration: Gradual Quality of pain: No pain Severity: None Pain Level: Denies Associated symptoms: Other - Dizziness. denies: Chills, Fever, Shortness of breath Exacerbated by: Denies Relieved by: Denies Similar symptoms previously: Yes Recently seen / treated by doctor: No - Related Data Allergies/Adverse Reactions: No Known Allergies Allergy (Verified 04/12/17 11:30) Past Medical History - General Information source: Emergency Med Personnel - Social History Smoking Status: Unknown if Ever Smoked Cigarette use (# per day): No Chew tobacco use (# tins/day): No Smoking Education Provided: No Frequency of alcohol use: None Drug Abuse: None Lives with: Family Family History: CVA, Hypertension Patient has suicidal ideation: No Patient has homicidal ideation: No - Past Medical History Cardiac Medical History: Reports: Hx Hypercholesterolemia, Hx Hypertension, Hx Heart Murmur - Mitral valve prolapse Denies: Hx Congestive Heart Failure, Hx DVT, Hx Heart Attack, Hx Pulmonary Embolism Pulmonary Medical History: Denies: Hx Asthma, Hx COPD Neurological Medical History: Reports: Hx Cerebrovascular Accident, Hx Seizures - One episode 2012 or 2013. Endocrine Medical History: Denies: Hx Diabetes Mellitus Type 1, Hx Diabetes Mellitus Type 2, Hx Hyperthyroidism, Hx Hypothyroidism Renal/ Medical History: Denies: Hx Peritoneal Dialysis Malignancy Medical History: Reports: Hx Breast Cancer - Status post lumpectomy for same GI Medical History: Denies: Hx Cirrhosis, Hx Gastroesophageal Reflux Disease, Hx Hepatitis Musculoskeltal Medical History: Reports Hx Arthritis Psychiatric Medical History: Reports: Hx Anxiety, Hx Dementia, Hx Depression Infectious Medical History: Denies: Hx Hepatitis Past Surgical History: Reports: Hx Breast Surgery - Lumpectomy for breast carcinoma., Hx Hysterectomy, Other - Excision of facial skin lesions. - Immunizations Hx Diphtheria, Pertussis, Tetanus Vaccination: Yes - 2009 Hx Pneumococcal Vaccination: 03/22/16 Review of Systems - Review of Systems Constitutional: denies: Chills, Fever EENT: No symptoms reported Cardiovascular: No symptoms reported Respiratory: No symptoms reported Gastrointestinal: See HPI Genitourinary: No symptoms reported Female Genitourinary: No symptoms reported Musculoskeletal: No symptoms reported Skin: No symptoms reported Hematologic/Lymphatic: No symptoms reported Neurological/Psychological: No symptoms reported Physical Exam - Vital signs Vitals: Pulse Ox 99 07/21/17 16:53 Notes: Physical exam: GENERAL: 87-year-old female, alert and at baseline dementia, no acute distress HEAD: Atraumatic, normocephalic. EYES: Pupils equal round and reactive to light, extraocular movements intact, sclera anicteric, conjunctiva are normal. ENT: Nares patent, oropharynx clear without exudates. Moist mucous membranes. NECK: Normal range of motion, supple without obvious mass or JVD. LUNGS: Breath sounds clear to auscultation bilaterally and equal. No wheezes rales or rhonchi. HEART: Regular rate and rhythm without murmurs, rubs or gallops. ABDOMEN: Soft, normoactive bowel sounds. No tenderness to palpation. No guarding, no rebound. No masses appreciated. Rectal: Brown stool, sent for study. There is a large amount in the rectal vault. Patient was disimpacted manually a large amount of stool. EXTREMITIES: Normal range of motion, no pitting or edema. No clubbing or cyanosis. NEUROLOGICAL: Baseline dementia, no acute change as per friend at bedside. SKIN: Warm, Dry, normal turgor, no rashes or lesions noted. Course - Re-evaluation Re-evalutation: 07/21/17 19:34 Patient was disimpacted with a large amount of stool. She does not have any more pain. - Vital Signs Vital signs: Temp Pulse Resp BP Pulse Ox 97.5 F 64 13 140/61 H 96 07/21/17 17:05 07/21/17 17:00 07/21/17 17:18 07/21/17 17:18 07/21/17 17:18 - Laboratory Result Diagrams: 07/21/17 17:00 07/21/17 17:00 Laboratory results interpreted by me: 07/21/17 07/21/17 07/21/17 17:00 17:00 17:00 RBC 3.55 L Hgb 11.8 L Hct 35.9 L MCV 101 H RDW 14.2 H Eosinophils % 19.5 H Absolute Eosinophils 2.0 H Carbon Dioxide 31 H Urine Nitrite POSITIVE H Ur Leukocyte Esterase LARGE H Urine Ascorbic Acid 40 H - Diagnostic Test Radiology reviewed: Image reviewed, Reports reviewed - X-ray shows no infiltrates. Abdominal films show marked constipation. - EKG Interpretation by Me Rate: Normal Rhythm: NSR - EKG shows normal sinus rhythm with a ventricular rate of 62, no acute ST-T wave change Discharge - Discharge Clinical Impression: Abdominal pain, UTI, Constipation Condition: Stable Disposition: HOME, SELF-CARE Additional Instructions: In the emergency room Ms Quintero had labs drawn, urine catheterization and a urine culture sent. She did have manual disimpaction of a large amount of stool. She received IV ceftriaxone for UTI. Her white blood count, kidney tests, electrolytes look quite good. Recommendations: Encourage fluids. Take the antibiotics as prescribed. We will check a urine culture and it will take a few days to see if the antibiotic she is on is the correct one. Follow-up with the primary care doctor. Continue all other medicines. Return to the emergency room for any concerns that Ms Quintero is not acting right or getting worse. Prescriptions: Cephalexin Monohydrate [Keflex 500 mg Capsule] 500 mg PO Q6H 5 Days capsule Referrals: DELISA MCLEAN MD [Primary Care Provider] - Follow up in 3-5 days
--- NOTE | 2017-07-21 18:20 | RADIOLOGY REPORT (SQ) ---
EXAM DESCRIPTION: CHEST SINGLE VIEW COMPLETED DATE/TIME: 07/21/2017 5:53 pm REASON FOR STUDY: chest pain COMPARISON: January 2017 EXAM PARAMETERS: NUMBER OF VIEWS: One view. TECHNIQUE: Single frontal radiographic view of the chest acquired. RADIATION DOSE: NA LIMITATIONS: None. FINDINGS: LUNGS AND PLEURA: No opacities, masses or pneumothorax. No pleural effusion. MEDIASTINUM AND HILAR STRUCTURES: No masses. Contour normal. HEART AND VASCULAR STRUCTURES: Cardiac silhouette appears mildly enlarged. BONES: No acute findings. HARDWARE: None in the chest. OTHER: No other significant finding. IMPRESSION: No significant interval change. No acute findings. Other findings as noted above. TECHNICAL DOCUMENTATION: JOB ID: [id number] [employer]- All Rights Reserved
--- NOTE | 2017-07-21 19:04 | RADIOLOGY REPORT (SQ) ---
EXAM DESCRIPTION: ABDOMEN 2 VIEWS COMPLETED DATE/TIME: 07/21/2017 6:43 pm REASON FOR STUDY: abd pain COMPARISON: None. NUMBER OF VIEWS: Two views. TECHNIQUE: Supine and erect/decubitus radiographic images of the abdomen acquired. LIMITATIONS: None. FINDINGS: FREE AIR: None. No abnormal gas collections. LUNG BASES: Clear. BOWEL GAS PATTERN: Large amount a gas and fecal material is identified throughout the colon. Otherwi se a nonspecific intestinal bowel gas pattern is seen. CALCIFICATIONS: No suspicious calcifications. SOFT TISSUES: No gross mass or suggestion of organomegaly. HARDWARE: None in the abdomen. BONES: No acute fracture. No worrisome bone lesions. OTHER: No other significant finding. IMPRESSION: NO RADIOGRAPHIC EVIDENCE FOR ACUTE ABDOMINAL DISEASE. Large amount of gas and fecal material is identified throughout the colon TECHNICAL DOCUMENTATION: JOB ID: [id number] [employer]- All Rights Reserved
[2017-07-21 20:06] VITALS: BP 161/57
--- NOTE | 2017-07-23 09:27 | EKG REPORT ---
SEVERITY:- NORMAL ECG - SINUS RHYTHM : Confirmed by: Mamie Angel 23-Jul-2017 09:26:43
== END 2017-07-21 20:06 | disposition home or self-care (01) ==
LOC: ER 16:37
DX: K56.41 Fecal impaction (principal); N39.0 Urinary tract infection, site not specified; R10.9 Unspecified abdominal pain; R42 Dizziness and giddiness
CPT/HCPCS: 93005; 99284; 96365; 36415; 87086; 85025; 82272; 87088; 80053; 81001; 87186; 74020; 71010; 93010; J0696

== ENCOUNTER 2018-01-30 10:20 | Emergency (ER) | payer MEDICARE ==
--- NOTE | 2018-01-30 11:02 | ER Document Report ---
ED Medical Screen (RME) - General Chief Complaint: Cough Stated Complaint: COUGH Time Seen by Provider: 01/30/18 10:55 Mode of Arrival: Wheelchair Cannot obtain history due to: Dementia TRAVEL OUTSIDE OF THE [place] IN LAST 30 DAYS: No - HPI Notes: 01/30/18 10:58 I have greeted and performed a rapid initial assessment of this patient. A comprehensive ED assessment and evaluation of the patient, analysis of test results and completion of the medical decision making process will be conducted by additional ED providers. 87-year-old female presents emergency department with a one-week history of a productive cough and generalized weakness. Patient has history of dementia. Bed bound. Caregivers accompany the patient. They contacted the patient's PCP this AM and was told to go to the ED for evaluation. They deny any fevers. Patient on keflex for chronic UTIs. They note that she has had an increase in weakness. Has been eating normally but decreased fluid consumption. PHYSICAL EXAMINATION: GENERAL: Cachetic, frail. HEAD: Atraumatic. EYES: Pupils equal round extraocular movements intact, conjunctiva are normal. ENT: Nares patent NECK: Normal range of motion LUNGS: No respiratory distress. No wheezing, rales, crackles. Musculoskeletal: Normal range of motion per care givers. SKIN: Warm, Dry, normal turgor, no rashes or lesions noted. - Related Data Allergies/Adverse Reactions: No Known Allergies Allergy (Verified 01/30/18 10:22) Past Medical History - Social History Frequency of alcohol use: Rare Drug Abuse: None - Past Medical History Cardiac Medical History: Reports: Hx Hypercholesterolemia, Hx Hypertension, Hx Heart Murmur - Mitral valve prolapse Denies: Hx Congestive Heart Failure, Hx DVT, Hx Heart Attack, Hx Pulmonary Embolism Pulmonary Medical History: Denies: Hx Asthma, Hx COPD Neurological Medical History: Reports: Hx Cerebrovascular Accident, Hx Seizures - One episode 2013 or 2013. Endocrine Medical History: Denies: Hx Diabetes Mellitus Type 1, Hx Diabetes Mellitus Type 2, Hx Hyperthyroidism, Hx Hypothyroidism Renal/ Medical History: Denies: Hx Peritoneal Dialysis Malignancy Medical History: Reports: Hx Breast Cancer - Status post lumpectomy for same GI Medical History: Denies: Hx Cirrhosis, Hx Gastroesophageal Reflux Disease, Hx Hepatitis Musculoskeltal Medical History: Reports Hx Arthritis Psychiatric Medical History: Reports: Hx Anxiety, Hx Dementia, Hx Depression Infectious Medical History: Denies: Hx Hepatitis Past Surgical History: Reports: Hx Breast Surgery - Lumpectomy for breast carcinoma., Hx Hysterectomy, Other - Excision of facial skin lesions. - Immunizations Hx Diphtheria, Pertussis, Tetanus Vaccination: Yes - 2009 Physical Exam - Vital signs Vitals: Temp Pulse Resp BP Pulse Ox 97.6 F 62 18 154/57 H 87 L 01/30/18 10:01/30/18 10:01/30/18 10:01/30/18 10:01/30/18 10:26 Course - Vital Signs Vital signs: Temp Pulse Resp BP Pulse Ox 97.6 F 62 18 154/57 H 87 L 01/30/18 10:26 01/30/18 10:26 01/30/18 10:26 01/30/18 10:26 01/30/18 10:26 Doctor's Discharge - Discharge Referrals: DELISA MCLEAN MD [Primary Care Provider] - Follow up as needed
[2018-01-30 11:49] LABS: ABSOLUTE EOSINOPHILS # (AUTO) 0.7 10^3/uL (0.0-0.6); ABSOLUTE LYMPHOCYTES (AUTO) 2.2 10^3/uL (0.5-4.7); ABSOLUTE MONOCYTES (AUTO) 0.9 10^3/uL (0.1-1.4); ABSOLUTE NEUT (AUTO) 6.8 10^3/uL (1.7-8.2); BASOPHILS % (AUTO) 0.3 % (0-2); EOSINOPHILS % (AUTO) 6.7 % (0-6); HEMATOCRIT 36.3 % (36.0-47.0); HEMOGLOBIN 12.4 g/dL (12.0-15.5); LYMPHOCYTES % (AUTO) 20.8 % (13-45); MEAN CORPUSCULAR HGB CONC 34.1 g/dL (32.0-36.0); MEAN CORPUSCULAR VOLUME 103 fl (80-97); MONOCYTES % (AUTO) 8.6 % (3-13); PLATELET COUNT 269 10^3/uL (150-450); RED BLOOD COUNT 3.55 10^6/uL (3.72-5.28); RED CELL DISTRIBUTION WIDTH 13.5 % (11.5-14.0); SEGMENTED NEUTROPHILS % (AUTO) 63.6 % (42-78); TOTAL CELLS COUNTED % (AUTO) 100 %; WHITE BLOOD COUNT 10.7 10^3/uL (4.0-10.5)
[2018-01-30 12:15] LABS: ALANINE AMINOTRANSFERASE 43 U/L (9-52); ALBUMIN 3.6 g/dL (3.5-5.0); ALKALINE PHOSPHATASE 81 U/L (38-126); ANION GAP 10 (5-19); ASPARTATE AMINO TRANSFERASE 37 U/L (14-36); BILIRUBIN,DIRECT 0.3 mg/dL (0.0-0.4); BILIRUBIN,TOTAL 0.3 mg/dL (0.2-1.3); BLOOD UREA NITROGEN 18 mg/dL (7-20); CARBON DIOXIDE 28 mmol/L (22-30); CHLORIDE 105 mmol/L (98-107); GLUCOSE 104 mg/dL (75-110); POTASSIUM 4.3 mmol/L (3.6-5.0); SODIUM 143.2 mmol/L (137-145); TOTAL PROTEIN 6.9 g/dL (6.3-8.2)
--- NOTE | 2018-01-30 12:18 | ER Document Report ---
ED General - General Chief Complaint: Cough Stated Complaint: COUGH Time Seen by Provider: 01/30/18 10:55 Mode of Arrival: Wheelchair TRAVEL OUTSIDE OF THE [place] IN LAST 30 DAYS: No - HPI Notes: Cough 1 week. End-stage dementia patient nonverbal at baseline nonambulatory brought in by her caregivers. Patient is DNI DNR has had a productive cough for several days. Contacted PCP who recommended Mucinex. Caregiver states she is just appears to be weaker than normal. Denies fever chills. Cough sounds like it is a nasal congestion cough for caregivers. Patient is an unreliable review of symptoms. - Related Data Allergies/Adverse Reactions: No Known Allergies Allergy (Verified 01/30/18 10:22) Past Medical History - Social History Smoking Status: Former Smoker Frequency of alcohol use: Rare Drug Abuse: None Family History: CVA, Hypertension Patient has suicidal ideation: No Patient has homicidal ideation: No - Past Medical History Cardiac Medical History: Reports: Hx Hypercholesterolemia, Hx Hypertension, Hx Heart Murmur - Mitral valve prolapse Denies: Hx Congestive Heart Failure, Hx DVT, Hx Heart Attack, Hx Pulmonary Embolism Pulmonary Medical History: Denies: Hx Asthma, Hx COPD Neurological Medical History: Reports: Hx Cerebrovascular Accident, Hx Seizures - One episode 2012 or 2013. Endocrine Medical History: Denies: Hx Diabetes Mellitus Type 1, Hx Diabetes Mellitus Type 2, Hx Hyperthyroidism, Hx Hypothyroidism Renal/ Medical History: Denies: Hx Peritoneal Dialysis Malignancy Medical History: Reports: Hx Breast Cancer - Status post lumpectomy for same GI Medical History: Denies: Hx Cirrhosis, Hx Gastroesophageal Reflux Disease, Hx Hepatitis Musculoskeletal Medical History: Reports Hx Arthritis Psychiatric Medical History: Reports: Hx Anxiety, Hx Dementia, Hx Depression Infectious Medical History: Denies: Hx Hepatitis Past Surgical History: Reports: Hx Breast Surgery - Lumpectomy for breast carcinoma., Hx Hysterectomy, Other - Excision of facial skin lesions. - Immunizations Hx Diphtheria, Pertussis, Tetanus Vaccination: Yes - 2009 Hx Pneumococcal Vaccination: 03/22/16 Review of Systems - Review of Systems -: Yes ROS unobtainable due to patient's medical condition - dementia Physical Exam - Vital signs Vitals: Temp Pulse Resp BP Pulse Ox 97.6 F 62 18 154/57 H 87 L 01/30/18 10:26 01/30/18 10:26 01/30/18 10:26 01/30/18 10:26 01/30/18 10:26 - Notes Notes: PHYSICAL EXAMINATION: HEAD: Atraumatic, normocephalic. EYES: Pupils equal round and reactive to light, extraocular movements intact, sclera anicteric, conjunctiva are normal. ENT: nares patent, oropharynx clear without exudates. Moist mucous membranes. NECK: Normal range of motion, supple without lymphadenopathy LUNGS: Breath sounds clear to auscultation bilaterally and equal. No wheezes rales or rhonchi. HEART: Regular rate and rhythm without murmurs ABDOMEN: Soft, nontender, normoactive bowel sounds. No guarding, no rebound. No masses appreciated. EXTREMITIES: Normal range of motion, no pitting or edema. No cyanosis. NEUROLOGICAL: advanced dementia. PSYCH: non verbal SKIN: Warm, Dry, normal turgor, no rashes or lesions noted. Course - Re-evaluation Re-evalutation: 01/30/18 14:36 Demented elderly 8-year-old female presents with vague complaint of increasing weakness. Patient's extensive lab workup shows no leukocytosis or other gross abnormalities preserved kidney function. Patient's chest x-ray shows no focal infiltrate or acute process. Patient is found of her urinary tract infection. Patient given some fluid resuscitation initial dose of IV ceftriaxone, will be started on oral cefdinir outpatient follow-up with PCP. - Vital Signs Vital signs: Temp Pulse Resp BP Pulse Ox 97.6 F 62 18 154/57 H 87 L 01/30/18 10:26 01/30/18 10:26 01/30/18 10:26 01/30/18 10:26 01/30/18 10:26 - Laboratory Result Diagrams: 01/30/18 11:11 01/30/18 11:11 Laboratory results interpreted by me: 01/30/18 01/30/18 01/30/18 11:11 11:11 13:05 WBC 10.7 H RBC 3.55 L MCV 103 H MCH 35.0 H Eosinophils % 6.7 H Absolute Eosinophils 0.7 H Creatinine 0.49 L AST 37 H Urine Protein 30 H Ur Leukocyte Esterase LARGE H Urine Ascorbic Acid 40 H Discharge - Discharge Clinical Impression: UTI (urinary tract infection) Qualifiers: Urinary tract infection type: acute cystitis Hematuria presence: with hematuria Qualified Code(s): N30.01 - Acute cystitis with hematuria Condition: Stable Disposition: HOME, SELF-CARE Instructions: Urinary Tract Infection, Child ([facility]) Referrals: DELISA MCLEAN MD [Primary Care Provider] - Follow up as needed
--- NOTE | 2018-01-30 13:04 | RADIOLOGY REPORT (SQ) ---
EXAM DESCRIPTION: CHEST SINGLE VIEW COMPLETED DATE/TIME: 01/30/2018 11:30 am REASON FOR STUDY: cough COMPARISON: AP chest 07/21/2017 EXAM PARAMETERS: NUMBER OF VIEWS: One view. TECHNIQUE: Single frontal radiographic view of the chest acquired. RADIATION DOSE: NA LIMITATIONS: None. FINDINGS: LUNGS AND PLEURA: No acute infiltrates. No pleural effusion. No pneumothorax. Skin fold s are projected over the right and left lateral chest MEDIASTINUM AND HILAR STRUCTURES: No masses. Contour normal. HEART AND VASCULAR STRUCTURES: Heart normal in size. Normal vasculature. BONES: No acute findings. HARDWARE: None in the chest. OTHER: No other significant finding. IMPRESSION: NO ACUTE RADIOGRAPHIC FINDING IN THE CHEST. TECHNICAL DOCUMENTATION: JOB ID: [id number] [email or web address]- All Rights Reserved Reading location - IP/workstation name: [email or web address]
[2018-01-30 13:36] LABS: APPEARANCE,URINE CLOUDY; BILIRUBIN,URINE NEGATIVE (NEGATIVE); GLUCOSE, URINE NEGATIVE (NEGATIVE); KETONES,URINE NEGATIVE (NEGATIVE); LEUKOCYTE ESTERASE,URINE LARGE (NEGATIVE); NITRITE,URINE NEGATIVE (NEGATIVE); PROTEIN,URINE 30 mg/dL (NEGATIVE); URINE SPECIFIC GRAVITY 1.023; UROBILINOGEN,URINE NEGATIVE mg/dL (<2.0)
[2018-01-30 13:37] LABS: COLOR,URINE YELLOW
[2018-01-30] MEDS ORDERED: CEFTRIAXONE 1 GM/D5W RTU 50 ML IV ONE (14:21)
[2018-01-30] MEDS ORDERED: LIDOCAINE 1% INJ-PF (10 MG/ML) 30 ML SDV INJ ONE (14:23)
[2018-01-30] MEDS ORDERED: CEFTRIAXONE INJ 1000 MG VIAL IM ONE (14:23)
[2018-01-30 14:47] VITALS: BP 151/66
== END 2018-01-30 14:47 | disposition home or self-care (01) ==
LOC: ER 10:20
DX: N30.01 Acute cystitis with hematuria (principal); R05 Cough; Z87.891 Personal history of nicotine dependence; E78.00 Pure hypercholesterolemia, unspecified; I10 Essential (primary) hypertension; F03.90 Unspecified dementia, unspecified severity, without behavioral disturbance, psychotic disturbance, mood disturbance, and anxiety; Z86.73 Personal history of transient ischemic attack (TIA), and cerebral infarction without residual deficits; Z85.3 Personal history of malignant neoplasm of breast; M19.90 Unspecified osteoarthritis, unspecified site; Z90.710 Acquired absence of both cervix and uterus
CPT/HCPCS: 99284; 96372; 36415; 87086; 85025; 80053; 81001; 71045; J3490; J0696

== ENCOUNTER 2018-06-01 08:54 | Inpatient (IN) | payer MEDICARE ==
--- NOTE | 2018-06-01 09:12 | ER Document Report ---
ED General - General Stated Complaint: DIFFICULTY BREATHING Time Seen by Provider: 06/01/18 09:03 TRAVEL OUTSIDE OF THE [place] IN LAST 30 DAYS: No - HPI Notes: Patient is a 88-year-old that presents to the emergency department for chief complaint of hypoxia and mental status change. Patient was found in bed by family this morning with minimal responsiveness. She has a history of seizures and dementia. Her baseline per EMS is minimally verbal and wheelchair-bound because of stroke. Family told EMS she will be awake and interactive but usually does not speak. Patient was incontinent of stool this morning. EMS states her oxygen saturation was 60% on room air when they found her. History is limited because of patient's current mental status and no family is present at this time Past Medical History: Dementia, seizures, hypertension, stroke Past Surgical History: Unknown Social History: Unknown Family History: Reviewed and noncontributory for presenting illness Allergies: Reviewed, see documented allergy list. REVIEW OF SYSTEMS: Unable to obtain because of patient's current mental status PHYSICAL EXAMINATION: Vital signs reviewed, nursing noted reviewed. GENERAL: Frail, thin, alert HEAD: Atraumatic, normocephalic. EYES: Eyes appear normal, extraocular movements intact, sclera anicteric, conjunctiva are normal. ENT: nares patent, oropharynx clear without exudates. Dry mucous membranes. NECK: Normal range of motion, supple without lymphadenopathy LUNGS: Diffuse rhonchi, shallow respirations HEART: Regular rate and rhythm without murmurs ABDOMEN: Soft, nontender, normoactive bowel sounds. No rebound, guarding, or rigidity. No masses appreciated. EXTREMITIES: Nontender, good range of motion, no pitting or edema. NEUROLOGICAL: Nonverbal. Sensory testing limited because of mental status. Patient withdraws all extremities to tactile stimuli PSYCH: Awake, nonverbal SKIN: Warm, Dry, normal turgor, no rashes or lesions noted on exposed skin - Related Data Allergies/Adverse Reactions: No Known Allergies Allergy (Verified 06/01/18 09:17) Past Medical History - Social History Smoking Status: Unknown if Ever Smoked Family History: CVA, Hypertension - Past Medical History Cardiac Medical History: Reports: Hx Hypercholesterolemia, Hx Hypertension, Hx Heart Murmur - Mitral valve prolapse Denies: Hx Congestive Heart Failure, Hx DVT, Hx Heart Attack, Hx Pulmonary Embolism Pulmonary Medical History: Denies: Hx Asthma, Hx COPD Neurological Medical History: Reports: Hx Cerebrovascular Accident, Hx Seizures - One episode 2013 or 2013. Endocrine Medical History: Denies: Hx Diabetes Mellitus Type 1, Hx Diabetes Mellitus Type 2, Hx Hyperthyroidism, Hx Hypothyroidism Renal/ Medical History: Denies: Hx Peritoneal Dialysis Malignancy Medical History: Reports: Hx Breast Cancer - Status post lumpectomy for same GI Medical History: Denies: Hx Cirrhosis, Hx Gastroesophageal Reflux Disease, Hx Hepatitis Musculoskeletal Medical History: Reports Hx Arthritis Psychiatric Medical History: Reports: Hx Anxiety, Hx Dementia, Hx Depression Infectious Medical History: Denies: Hx Hepatitis Past Surgical History: Reports: Hx Breast Surgery - Lumpectomy for breast carcinoma., Hx Hysterectomy, Other - Excision of facial skin lesions. - Immunizations Hx Diphtheria, Pertussis, Tetanus Vaccination: Yes - 2009 Hx Pneumococcal Vaccination: 03/22/16 Review of Systems - Review of Systems Notes: Dictated Physical Exam - Vital signs Vitals: Resp BP Pulse Ox 23 H 180/63 H 94 06/01/18 09:03 06/01/18 09:03 06/01/18 09:03 - Notes Notes: Dictated Course - Re-evaluation Re-evalutation: 06/01/18 09:12 Vitals reviewed. Patient arrived by EMS with spontaneous respirations and receiving blow-by oxygen from the BVM. She was trialed on nasal cannula oxygen but had desaturation into the high 80s. Patient placed on Ventimask to maintain oxygen saturation greater than 94%. Seizure precautions started. Dilantin level will be obtained. Blood cultures obtained. 06/01/18 10:48 Patient reevaluated and is now hypoxic on the nonrebreather. She is more alert than when she initially arrived. Patient placed on BiPAP for her continued hypoxia. ABG shows a normal pH with hypoxia likely related to hypoventilation and aspiration pneumonia. I suspect patient had a seizure this morning and she seems to be recovering from her postictal state. No seizure activity has been witnessed in the emergency room today. Patient's lab work does show urinary tract infection as well. She received antibiotics in the ED. Patient will be admitted to the ICU for further management. Patient discussed with Dr. Linder who accepted the admission. I did have an extensive conversation with patient's power of ip technology transactions attorney who wishes for her to be DNR with no intubation. Laboratory 06/01/18 06/01/18 06/01/18 09:02 09:02 09:02 WBC 19.9 H RBC 3.53 L Hgb 12.3 Hct 36.7 MCV 104 H MCH 34.8 H MCHC 33.5 RDW 13.9 Plt Count 285 Total Counted 100 Seg Neutrophils % Not Reportable Seg Neuts % (Manual) 90 H Lymphocytes % Not Reportable Lymphocytes % (Manual) 6 L Monocytes % Not Reportable Monocytes % (Manual) 4 Eosinophils % Not Reportable Eosinophils % (Manual) 0 Basophils % Not Reportable Basophils % (Manual) 0 Absolute Neutrophils Not Reportable Abs Neuts (Manual) 17.9 H Absolute Lymphocytes Not Reportable Abs Lymphs (Manual) 1.2 Absolute Monocytes Not Reportable Abs Monocytes (Manual) 0.8 Absolute Eosinophils Not Reportable Absolute Eos (Manual) 0.0 Absolute Basophils Not Reportable Abs Basophils (Manual) 0.0 Toxic Granulation SLIGHT Toxic Vacuolation PRESENT Platelet Comment ADEQUATE Macrocytosis 1+ Carbonic Acid HCO3/H2CO3 Ratio ABG pH ABG pCO2 ABG pO2 ABG HCO3 ABG Total CO2 ABG O2 Saturation ABG Base Excess FiO2 Sodium 141.9 Potassium 4.1 Chloride 103 Carbon Dioxide 28 Anion Gap 11 BUN 18 Creatinine 0.41 L Est GFR ( Amer) > 60 Est GFR (Non-Af Amer) > 60 Glucose 145 H Lactic Acid Calcium 9.2 Total Bilirubin 0.4 Direct Bilirubin 0.2 Neonat Total Bilirubin Not Reportable Neonat Direct Bilirubin Not Reportable Neonat Indirect Bili Not Reportable AST 41 H ALT 27 Alkaline Phosphatase 108 Troponin I < 0.012 Total Protein 7.8 Albumin 3.9 Urine Color Urine Appearance Urine pH Ur Specific [place] Urine Protein Urine Glucose (UA) Urine Ketones Urine Blood Urine Nitrite Urine Bilirubin Urine Urobilinogen Ur Leukocyte Esterase Urine WBC (Auto) Urine RBC (Auto) U Hyaline Cast (Auto) Urine WBC Clumps Squamous Epi Cells Auto Urine Mucus (Auto) Urine Ascorbic Acid 06/01/18 06/01/18 06/01/18 09:02 09:16 09:26 WBC RBC Hgb Hct MCV MCH MCHC RDW Plt Count Total Counted Seg Neutrophils % Seg Neuts % (Manual) Lymphocytes % Lymphocytes % (Manual) Monocytes % Monocytes % (Manual) Eosinophils % Eosinophils % (Manual) Basophils % Basophils % (Manual) Absolute Neutrophils Abs Neuts (Manual) Absolute Lymphocytes Abs Lymphs (Manual) Absolute Monocytes Abs Monocytes (Manual) Absolute Eosinophils Absolute Eos (Manual) Absolute Basophils Abs Basophils (Manual) Toxic Granulation Toxic Vacuolation Platelet Comment Macrocytosis Carbonic Acid 1.23 HCO3/H2CO3 Ratio 21:1 ABG pH 7.43 ABG pCO2 40.8 ABG pO2 53.6 L ABG HCO3 26.6 H ABG Total CO2 27.8 H ABG O2 Saturation 88.8 L ABG Base Excess 2.2 FiO2 7L Sodium Potassium Chloride Carbon Dioxide Anion Gap BUN Creatinine Est GFR ( Amer) Est GFR (Non-Af Amer) Glucose Lactic Acid 1.3 Calcium Total Bilirubin Direct Bilirubin Neonat Total Bilirubin Neonat Direct Bilirubin Neonat Indirect Bili AST ALT Alkaline Phosphatase Troponin I Total Protein Albumin Urine Color SOPHIE Urine Appearance TURBID Urine pH 6.0 Ur Specific [place] 1.019 Urine Protein 100 H Urine Glucose (UA) NEGATIVE Urine Ketones NEGATIVE Urine Blood NEGATIVE Urine Nitrite NEGATIVE Urine Bilirubin NEGATIVE Urine Urobilinogen NEGATIVE Ur Leukocyte Esterase MODERATE H Urine WBC (Auto) >182 Urine RBC (Auto) 55 U Hyaline Cast (Auto) 9 Urine WBC Clumps MANY Squamous Epi Cells Auto 2 Urine Mucus (Auto) MANY Urine Ascorbic Acid 40 H Chest X-Ray 06/01/18 09:03 IMPRESSION: COPD. Left basilar pneumonia. - Vital Signs Vital signs: Temp Pulse Resp BP Pulse Ox 98.6 F 23 H 180/63 H 94 06/01/18 09:05 06/01/18 09:03 06/01/18 09:03 06/01/18 09:03 - Laboratory Result Diagrams: 06/01/18 09:02 06/01/18 09:02 Laboratory results interpreted by me: 06/01/18 06/01/18 06/01/18 09:02 09:02 09:16 WBC 19.9 H RBC 3.53 L MCV 104 H MCH 34.8 H Seg Neuts % (Manual) 90 H Lymphocytes % (Manual) 6 L Abs Neuts (Manual) 17.9 H ABG pO2 ABG HCO3 ABG Total CO2 ABG O2 Saturation Creatinine 0.41 L Glucose 145 H AST 41 H Urine Protein 100 H Ur Leukocyte Esterase MODERATE H Urine Ascorbic Acid 40 H 06/01/18 09:26 WBC RBC MCV MCH Seg Neuts % (Manual) Lymphocytes % (Manual) Abs Neuts (Manual) ABG pO2 53.6 L ABG HCO3 26.6 H ABG Total CO2 27.8 H ABG O2 Saturation 88.8 L Creatinine Glucose AST Urine Protein Ur Leukocyte Esterase Urine Ascorbic Acid - EKG Interpretation by Me Additional EKG results interpreted by me: 06/01/18 09:55 Interpreted by myself 0 [id number]: Normal sinus rhythm, rate 78, frequent PVCs, normal axis, no ST elevation Critical Care Note - Critical Care Note Total time excluding time spent on procedures (mins): 90 Comments: Extensive conversation with family regarding plan of care and DNR. Patient in respiratory failure on BiPAP. Hypoxic with sepsis. Interventions for hemodynamics and respiratory stabilization. Discharge - Discharge Clinical Impression: Acute respiratory failure with hypoxia, Mental status, decreased UTI (urinary tract infection) Qualifiers: Urinary tract infection type: site unspecified Hematuria presence: without hematuria Qualified Code(s): N39.0 - Urinary tract infection, site not specified Sepsis Qualifiers: Sepsis type: sepsis due to unspecified organism Qualified Code(s): A41.9 - Sepsis, unspecified organism Condition: Stable Disposition: ADMITTED INPATIENT Admitting Provider: Hospitalist Unit Admitted: ICU Referrals: DELISA MCLEAN MD [Primary Care Provider] - Follow up as needed
[2018-06-01 09:25] LABS: HEMATOCRIT 36.7 % (36.0-47.0); HEMOGLOBIN 12.3 g/dL (12.0-15.5); MEAN CORPUSCULAR HEMOGLOBIN 34.8 pg (27.0-33.4); MEAN CORPUSCULAR HGB CONC 33.5 g/dL (32.0-36.0); MEAN CORPUSCULAR VOLUME 104 fl (80-97); PLATELET COUNT 285 10^3/uL (150-450); RED BLOOD COUNT 3.53 10^6/uL (3.72-5.28); RED CELL DISTRIBUTION WIDTH 13.9 % (11.5-14.0); WHITE BLOOD COUNT 19.9 10^3/uL (4.0-10.5)
[2018-06-01 09:34] LABS: APPEARANCE,URINE TURBID; BILIRUBIN,URINE NEGATIVE (NEGATIVE); COLOR,URINE AMBER; GLUCOSE, URINE NEGATIVE (NEGATIVE); KETONES,URINE NEGATIVE (NEGATIVE); LEUKOCYTE ESTERASE,URINE MODERATE (NEGATIVE); NITRITE,URINE NEGATIVE (NEGATIVE); PROTEIN,URINE 100 mg/dL (NEGATIVE); URINE SPECIFIC GRAVITY 1.019; UROBILINOGEN,URINE NEGATIVE mg/dL (<2.0)
[2018-06-01 09:42] LABS: ABSOLUTE LYMPHOCYTES# (MANUAL) 1.2 10^3/uL (0.5-4.7); ABSOLUTE MONOCYTES # (MANUAL) 0.8 10^3/uL (0.1-1.4); ABSOLUTE NEUTROPHILS# (MANUAL) 17.9 10^3/uL (1.7-8.2); BASOPHILS % (MANUAL) 0 % (0-2); EOSINOPHILS % (MANUAL) 0 % (0-6); LYMPHOCYTES % (MANUAL) 6 % (13-45); MONOCYTES % (MANUAL) 4 % (3-13); SEGMENTED NEUTROPHILS % (MAN) 90 % (42-78); TOTAL CELLS COUNTED 100
[2018-06-01 09:43] LABS: PLATELET COMMENT ADEQUATE; TOXIC GRANULATION SLIGHT; TOXIC VACUOLATION PRESENT
[2018-06-01] MEDS ORDERED: CEFTRIAXONE INJ 1000 MG VIAL IV ONE (09:55)
[2018-06-01 09:56] LABS: ARTERIAL BLOOD BASE EXCESS 2.2 mmol/L; ARTERIAL BLOOD FIO2 7L; ARTERIAL BLOOD H2CO3 1.23 mmol/L (1.05-1.35); ARTERIAL BLOOD HCO3 26.6 mmol/L (20-24); ARTERIAL BLOOD O2 SATURATION 88.8 % (94-98); ARTERIAL BLOOD PCO2 40.8 mmHg (35-45); ARTERIAL BLOOD PH 7.43 (7.35-7.45); ARTERIAL BLOOD PO2 53.6 mmHg (80-100); ARTERIAL BLOOD TOTAL CO2 27.8 mmol/L (21-25)
[2018-06-01] MEDS ORDERED: NORMAL SALINE 1000 ML 1,000 ML IV ONE (09:56)
--- NOTE | 2018-06-01 09:58 | EKG REPORT ---
SEVERITY:- ABNORMAL ECG - SINUS RHYTHM MULTIPLE VENTRICULAR PREMATURE COMPLEXES : Confirmed by: Matt Smith MD 01-Jun-2018 09:57:12
[2018-06-01 10:05] LABS: ALANINE AMINOTRANSFERASE 27 U/L (9-52); ALBUMIN 3.9 g/dL (3.5-5.0); ALKALINE PHOSPHATASE 108 U/L (38-126); ANION GAP 11 (5-19); ASPARTATE AMINO TRANSFERASE 41 U/L (14-36); BILIRUBIN,DIRECT 0.2 mg/dL (0.0-0.4); BILIRUBIN,TOTAL 0.4 mg/dL (0.2-1.3); BLOOD UREA NITROGEN 18 mg/dL (7-20); CALCIUM 9.2 mg/dL (8.4-10.2); CARBON DIOXIDE 28 mmol/L (22-30); CHLORIDE 103 mmol/L (98-107); GLUCOSE 145 mg/dL (75-110); POTASSIUM 4.1 mmol/L (3.6-5.0); SODIUM 141.9 mmol/L (137-145); TOTAL PROTEIN 7.8 g/dL (6.3-8.2)
[2018-06-01] MEDS ORDERED: LEVOFLOXACIN 750 MG/D5W RTU 750 MG/150 ML RTUPB IV ONE (10:33)
[2018-06-01] MEDS ORDERED: VANCOMYCIN HCL INJ 1000 MG VIAL IV ONE (10:46)
--- NOTE | 2018-06-01 10:47 | RADIOLOGY REPORT (SQ) ---
EXAM DESCRIPTION: CHEST SINGLE VIEW COMPLETED DATE/TIME: 06/01/2018 10:26 am REASON FOR STUDY: hypoxia COMPARISON: 2017 NUMBER OF VIEWS: One view. TECHNIQUE: Single frontal radiographic view of the chest acquired. LIMITATIONS: None. FINDINGS: LUNGS AND PLEURA: Hyperinflated lungs suggesting COPD. Left basilar airspace disease sugg estive of pneumonia. No pneumothorax. MEDIASTINUM AND HILAR STRUCTURES: No masses. Contour normal. HEART AND VASCULAR STRUCTURES: Heart normal in size. Normal vasculature. BONES: Osteopenic without gross fracture. HARDWARE: None in the chest. OTHER: No other significant finding. IMPRESSION: COPD. Left basilar pneumonia. TECHNICAL DOCUMENTATION: JOB ID: [id number] [employer]- All Rights Reserved Reading location - IP/workstation name: [email or web address]
[2018-06-01] MEDS ORDERED: DEXTROSE 40% GEL 15 GM TUBE PO PRN ×2 (11:50)
[2018-06-01] MEDS ORDERED: DEXTROSE 50%-WATER 25 GM/50 ML DISP.SYRIN IV PRN ×2 (11:50)
[2018-06-01] MEDS ORDERED: GLUCAGON,HUMAN RECOMB 1 MG INJ SUBCUT PRN (11:50)
[2018-06-01] MEDS ORDERED: HYDRALAZINE HCL INJ/PF 20 MG/1 ML SDV IV PRN (12:00)
[2018-06-01] MEDS ORDERED: LORAZEPAM INJ 2 MG/1 ML VIAL IV PRN (12:24)
--- NOTE | 2018-06-01 12:26 | RADIOLOGY REPORT (SQ) ---
EXAM DESCRIPTION: CT HEAD WITHOUT COMPLETED DATE/TIME: 06/01/2018 12:00 pm REASON FOR STUDY: mental status change COMPARISON: 2017. TECHNIQUE: Axial images acquired through the brain without intravenous contrast. Images reviewed wi th bone, brain and subdural windows. Additional sagittal and coronal reconstructions were generated. Images stored on PACS. All CT scanners at this facility use dose modulation, iterative reconstruction, and/or weight based d osing when appropriate to reduce radiation dose to as low as reasonably achievable (ALARA). [facility]: Dose Right [facility]: CareDose [facility]: Dose Right [facility]: Teradose 4D [facility]: [employer] RADIATION DOSE: CT Rad equipment meets quality standard of care and radiation dose reduction techniq ues were employed. CTDIvol: 53.2 mGy. DLP: 1044 mGy-cm. mGy. LIMITATIONS: None. FINDINGS: VENTRICLES: Prominent, age related atrophy. CEREBRUM: Patchy deep periventricular low density consistent with small vessel disease. Since the pr ior study, right MCA distribution infarct has developed. This otherwise looks well defined and chron ic (seen on MRI from last year). No hemorrhage or mass or shift. CEREBELLUM: No masses. No hemorrhage. No alteration of density. No evidence for acute infarction. EXTRAAXIAL SPACES: No hemorrhage or mass or fluid collections. ORBITS AND GLOBE: No intra- or extraconal masses. Normal contour of globe without masses. CALVARIUM: No fracture. PARANASAL SINUSES: No fluid or mucosal thickening. SOFT TISSUES: No mass or hematoma. OTHER: No other significant finding. IMPRESSION: 1. Chronic changes of atrophy and old right MCA infarct. No acute intracranial abnormal ity. EVIDENCE OF ACUTE STROKE: NO. COMMENT: Quality ID # [id number]: Final reports with documentation of one or more dose reduction techniques (e.g., Automated exposure control, adjustment of the mA and/or kV according to patient size, use of iterative reconstruction technique) TECHNICAL DOCUMENTATION: JOB ID: [id number] [employer]- All Rights Reserved Reading location - IP/workstation name: [email or web address]
--- NOTE | 2018-06-01 12:28 | PDOC H&P ---
History of Present Illness Admission Date/PCP: 06/01/18 11:04 DELISA MCLEAN MD Patient complains of: unresponsiveness, acute respiratory failure History of Present Illness: GISELLE PUTNAM is a 88 year old female with PMH of HLD, dementia, seizure disorder , dysphagia and recurrent UTI- who presented to the ED via EMS for unresponsiveness and ?seizure. patient is unable to provide any history - she has dementia- very lethargic and on bipap. history if obtained from son-in-law and caregiver at bedside. Son in law, Elmer, tells me that he has healthcare POA of patient- his and so he's the primary guardian. caregiver also at bedside and helps provide care on a daily basis. caregiver states that this morning she was called by another caregiver at patients bedside because patient was noted to have "white foam" coming out of her mouth. this caregiver went over- did not notice any shaking of arms or legs- called 911 and EMS came over to bring her to hospital. caregiver noted that patient was lethargic but did not notice urinary/bowel incontinence. patient was coughing somewhat with the foam in her mouth. EMS had found her to be hypoxic into the 60s on arrival. Patient was placed on Bipap. currently she's on bipap. I spoke with son-in law who tells me that patient is DNR/DNI and he does NOT want any heroic interventions at this time. caregiver tells me that patient has dementia- just smiles and looks on- sometimes knows her name but for the most part unable to answer any questions. no new changes to her care/ medications in the last week. caregiver assures me that patient has been taking all her medications- she is on a pureed diet with nectar thick liquids. Past Medical History Cardiac Medical History: Reports: Hyperlipidema, Hypertension, Heart Murmur - Mitral valve prolapse Denies: Congestive Heart Failure, DVT, Myocardial Infarction, Pulmonary Embolism Pulmonary Medical History: Denies: Asthma, Chronic Obstructive Pulmonary Disease (COPD) Neurological Medical History: Reports: Ischemic CVA, Seizures - One episode 2013 or 2013. Endocrine Medical History: Denies: Diabetes Mellitus Type 1, Diabetes Mellitus Type 2, Hyperthyroidism, Hypothyroidism Malignancy Medical History: Reports: Breast Cancer - Status post lumpectomy for same GI Medical History: Denies: Cirrhosis, Gastroesophageal Reflux Disease, Hepatitis Musculoskeltal Medical History: Reports: Arthritis Psychiatric Medical History: Reports: Dementia, Depression Hematology: Reports: Anemia Past Surgical History Past Surgical History: Reports: Hysterectomy, Other - Excision of facial skin lesions. Social History Information Source: Legal Guardian - Elmer- son in law Lives with: Alone Smoking Status: Unknown if Ever Smoked Frequency of Alcohol Use: None Hx Recreational Drug Use: No Drugs: None Hx Prescription Drug Abuse: No - Advance Directive Resuscitation Status: Do Not Resuscitate Surrogate healthcare decision maker:: Elmer Family History Family History: CVA, Hypertension Parental Family History Reviewed: No - patient on bipap and not very responsive at this time Children Family History Reviewed: Unknown Sibling(s) Family History Reviewed.: Unknown Medication/Allergy Home Medications: Aspirin/Dipyridamole [Aggrenox 25 mg-200 mg Capsule] 1 each PO Q12 11/26/16 Atorvastatin Calcium [Lipitor 20 mg Tablet] 20 mg PO QHS 11/26/16 Cyanocobalamin (Vitamin B-12) [Vitamin B12] 2,500 mcg PO QAM 11/26/16 Donepezil HCl [Aricept 5 mg Tablet] 5 mg PO QHS 11/26/16 Escitalopram Oxalate [Lexapro 10 mg Tablet] 10 mg PO DAILY 11/26/16 Hydralazine HCl [Apresoline 50 mg Tablet] 100 mg PO Q12 11/26/16 Memantine HCl [Namenda 10 mg Tablet] 10 mg PO BID 11/26/16 Metoprolol Succinate [Toprol Xl 50 mg Tab.sr] 50 mg PO DAILY 11/26/16 Nifedipine [Nifedipine ER] 60 mg PO DAILY 11/26/16 Phenytoin Sodium Extended [Dilantin 100 mg Capsule.er] 100 mg PO Q12 11/26/16 Phenytoin Sodium Extended [Dilantin] 60 mg PO QHS 11/26/16 Allergies/Adverse Reactions: No Known Allergies Allergy (Verified 06/01/18 09:17) Review of Systems ROS unobtainable: Due to mental status, Other - on bipap Physical Exam Vital Signs: Temp Pulse Resp BP Pulse Ox 98.6 F 23 H 180/63 H 94 06/01/18 09:05 06/01/18 09:03 06/01/18 09:03 06/01/18 09:03 General appearance: PRESENT: other - cachectic, ill appearing, on bipap- opens eyes- doesn't answer questions Head exam: PRESENT: atraumatic, normocephalic Eye exam: ABSENT: conjunctival injection, scleral icterus Ear exam: PRESENT: normal external ear exam Respiratory exam: PRESENT: symmetrical, other - on Bipap Cardiovascular exam: PRESENT: +S1, +S2 Pulses: PRESENT: +2 pedal pulses bilateral GI/Abdominal exam: PRESENT: normal bowel sounds, soft. ABSENT: tenderness Extremities exam: ABSENT: pedal edema Musculoskeletal exam: PRESENT: other - lower and upper extremities contracted- small skin tears noted Neurological exam: PRESENT: other - on bipap- opens eyes- unable to answer questions- doesn't follow commands- difficult to assess neurological response Results Impressions: Chest X-Ray 06/01/18 09:03 IMPRESSION: COPD. Left basilar pneumonia. Assessment & Plan - Diagnosis (1) Acute respiratory failure with hypoxia Is this a current diagnosis for this admission?: Yes (2) Sepsis Qualifiers: Sepsis type: sepsis due to unspecified organism Qualified Code(s): A41.9 - Sepsis, unspecified organism Is this a current diagnosis for this admission?: Yes (3) Mental status, decreased Is this a current diagnosis for this admission?: Yes (4) Urinary tract infection Qualifiers: Urinary tract infection type: site unspecified Hematuria presence: without hematuria Qualified Code(s): N39.0 - Urinary tract infection, site not specified Is this a current diagnosis for this admission?: Yes (5) Seizure disorder Is this a current diagnosis for this admission?: Yes (6) Hyperlipidemia Qualifiers: Hyperlipidemia type: unspecified Qualified Code(s): E78.5 - Hyperlipidemia , unspecified Is this a current diagnosis for this admission?: Yes (7) Dementia Qualifiers: Dementia type: Alzheimer's disease Alzheimer's disease onset: late-onset Dementia behavioral disturbance: without behavioral disturbance Qualified Code (s): G30.1 - Alzheimer's disease with late onset Is this a current diagnosis for this admission?: Yes (8) DNR (do not resuscitate) Is this a current diagnosis for this admission?: Yes (9) Dysphasia Is this a current diagnosis for this admission?: Yes (10) Essential hypertension Is this a current diagnosis for this admission?: Yes (11) History of CVA (cerebrovascular accident) Is this a current diagnosis for this admission?: Yes - Time Time Spent: 50 to 70 Minutes Medications reviewed and adjusted accordingly: Yes Anticipated discharge: Home, Acute Rehab - Inpatient Certification Based on my medical assessment, after consideration of the patient's comorbidities, presenting symptoms, or acuity I expect that the services needed warrant INPATIENT care.: Yes I certify that my determination is in accordance with my understanding of Medicare's requirements for reasonable and necessary INPATIENT services [42 CFR 412.3e].: Yes Medical Necessity: Need Close Monitoring Due to Risk of Patient Decompensation, Need For IV Fluids, Need For Continuous Telemetry Monitoring, Need for IV Antibiotics, Risk of Complication if Not Cared For in Hospital - Plan Summary Plan Summary: Acute respiratory failure w/ hypoxia- c/w Bipap- likely 2/2 seizure leading to aspiration pneumonia. see plan for aspiration pneumonia. Will keep her NPO for now. start on some IV fluids to hydrate her Sepsis- likely 2/2 Aspiration pneumonia- she received Rocephin and vanco in the ED. will start on Zosyn and continue with Vanco. NPO for now- but will switch to pureed and nectar thick liquids. bronchial hygiene when appropriate. will add nebulizer treatment to help breath better. BCx sent and pending Aspiration pneumonia- see plan above UTI- UA looks dirty- UCx send and pending. has history of recurrent UTI- will adjust medications as UCx is available Seizure disorder- will hold medications- phenytoin level sent and pending. will order ativan PRN for breakthrough seizures. HTN- will hold meds since she's NPO- added hydralazine PRN H/O CVA- NPO- will hold aggrenox for now. on Heparin SQ for DVT proph for now Will start on Protonix for GI proph
[2018-06-01] MEDS: PANTOPRAZOLE SODIUM 40 MG VIAL IV SCH (13:59)
[2018-06-01] MEDS: HEPARIN SOD (PORCINE) 5,000 UNIT/ML 1 ML SYRINGE SUBCUT SCH ×2 (14:00→22:08)
[2018-06-01] MEDS: NORMAL SALINE 1000 ML 1,000 ML IV PRN ×2 (14:05→22:15)
[2018-06-01] MEDS: IPRATROPIUM/ALBUTEROL 0.5-2.5 MG/3 ML AMPUL NEB SCH ×2 (15:40→20:44)
[2018-06-01] MEDS: PIPERACILLIN SODIUM/TAZOBACTAM 2.25 GM in NORMAL SALINE 50 ML IV SCH (17:18)
[2018-06-01] MEDS ORDERED: PIPERACILLIN SODIUM/TAZOBACTAM 4.5 GM in NORMAL SALINE 100 ML IV SCH (18:00)
[2018-06-02] MEDS: PIPERACILLIN SODIUM/TAZOBACTAM 2.25 GM in NORMAL SALINE 50 ML IV SCH ×4 (00:48→17:26)
[2018-06-02 05:40] LABS: ABSOLUTE LYMPHOCYTES (AUTO) 1.8 10^3/uL (0.5-4.7); ABSOLUTE MONOCYTES (AUTO) 1.1 10^3/uL (0.1-1.4); ABSOLUTE NEUT (AUTO) 16.6 10^3/uL (1.7-8.2); BASOPHILS % (AUTO) 0.1 % (0-2); EOSINOPHILS % (AUTO) 0.1 % (0-6); HEMATOCRIT 25.3 % (36.0-47.0); LYMPHOCYTES % (AUTO) 9.4 % (13-45); MEAN CORPUSCULAR HEMOGLOBIN 34.6 pg (27.0-33.4); MEAN CORPUSCULAR VOLUME 105 fl (80-97); MONOCYTES % (AUTO) 5.6 % (3-13); PLATELET COUNT 183 10^3/uL (150-450); RED BLOOD COUNT 2.42 10^6/uL (3.72-5.28); SEGMENTED NEUTROPHILS % (AUTO) 84.8 % (42-78); TOTAL CELLS COUNTED % (AUTO) 100 %; WHITE BLOOD COUNT 19.6 10^3/uL (4.0-10.5)
[2018-06-02] MEDS: HEPARIN SOD (PORCINE) 5,000 UNIT/ML 1 ML SYRINGE SUBCUT SCH (05:50)
[2018-06-02 05:59] LABS: HEMOGLOBIN 8.4 g/dL (12.0-15.5)
[2018-06-02 06:23] LABS: ANION GAP 10 (5-19); CALCIUM 8.3 mg/dL (8.4-10.2); CARBON DIOXIDE 24 mmol/L (22-30); CHLORIDE 110 mmol/L (98-107); GLUCOSE 88 mg/dL (75-110); POTASSIUM 3.5 mmol/L (3.6-5.0); SODIUM 143.9 mmol/L (137-145)
[2018-06-02 06:39] LABS: BLOOD UREA NITROGEN 22 mg/dL (7-20)
[2018-06-02] MEDS: IPRATROPIUM/ALBUTEROL 0.5-2.5 MG/3 ML AMPUL NEB SCH ×4 (08:18→19:56)
[2018-06-02] MEDS: PANTOPRAZOLE SODIUM 40 MG VIAL IV SCH (09:26)
[2018-06-02 09:46] LABS: ARTERIAL BLOOD BASE EXCESS -1.3 mmol/L; ARTERIAL BLOOD H2CO3 1.12 mmol/L (1.05-1.35); ARTERIAL BLOOD HCO3 23.1 mmol/L (20-24); ARTERIAL BLOOD O2 SATURATION 99.4 % (94-98); ARTERIAL BLOOD PCO2 37.2 mmHg (35-45); ARTERIAL BLOOD PH 7.41 (7.35-7.45); ARTERIAL BLOOD PO2 207.8 mmHg (80-100); ARTERIAL BLOOD TOTAL CO2 24.2 mmol/L (21-25)
[2018-06-02 09:51] LABS: ARTERIAL BLOOD FIO2 4L
--- NOTE | 2018-06-02 10:31 | EKG REPORT ---
SEVERITY:- ABNORMAL ECG - SINUS RHYTHM BORDERLINE T ABNORMALITIES, ANTERIOR LEADS : Confirmed by: Mamie Angel 02-Jun-2018 10:30:57
--- NOTE | 2018-06-02 13:03 | PDOC PROGRESS REPORT ---
Subjective Progress Note for:: 06/02/18 - seen on rounds this morning Subjective:: patient remains non verbal- spoke with family and caregivers at bedside- they tell me that she doesnt speak but just smiles at times- thats her baseline. Reason For Visit: ASPIRATION PNEUMONIA,ACUTE RESPIRATORY FAILURE, Physical Exam Vital Signs: Temp Pulse Resp BP Pulse Ox 98.3 F 84 16 91/38 L 99 06/02/18 07:54 06/02/18 12:00 06/02/18 12:00 06/02/18 07:54 06/02/18 12:00 Intake & Output 06/01/18 06/02/18 06/03/18 06:59 06:59 06:59 Intake Total 763 Output Total 1 Balance 762 Weight 77 lb 9.643 oz General appearance: PRESENT: no acute distress, other - cachectic and contracted Head exam: PRESENT: atraumatic, normocephalic Eye exam: ABSENT: scleral icterus Ear exam: PRESENT: normal external ear exam Mouth exam: PRESENT: tongue midline Neck exam: ABSENT: tracheal deviation Respiratory exam: PRESENT: clear to auscultation martita, symmetrical Cardiovascular exam: PRESENT: +S1, +S2 Pulses: PRESENT: +2 pedal pulses bilateral GI/Abdominal exam: PRESENT: normal bowel sounds, soft Extremities exam: ABSENT: pedal edema Musculoskeletal exam: PRESENT: other - contracted UE and LE Neurological exam: PRESENT: other - she opens her eyes to her name being called - doesn't speak- does respond to physical stimuli- remains non verbal- limited exam due to her current condition Skin exam: PRESENT: dry, skin tears - noted on arms and legs- superficial, warm , other - some areas of ecchymosis noted Results Laboratory Results: 06/02/18 04:33 06/02/18 04:33 06/02/18 06/02/18 06/02/18 04:33 04:33 09:10 WBC 19.6 H RBC 2.42 L Hgb 8.4 L D Hct 25.3 L MCV 105 H MCH 34.6 H MCHC 33.0 RDW 14.0 Plt Count 183 Seg Neutrophils % 84.8 H Lymphocytes % 9.4 L Monocytes % 5.6 Eosinophils % 0.1 Basophils % 0.1 Absolute Neutrophils 16.6 H Absolute Lymphocytes 1.8 Absolute Monocytes 1.1 Absolute Eosinophils 0.0 Absolute Basophils 0.0 Carbonic Acid 1.12 HCO3/H2CO3 Ratio 20:1 ABG pH 7.41 ABG pCO2 37.2 ABG pO2 207.8 H ABG HCO3 23.1 ABG O2 Saturation 99.4 H ABG Base Excess -1.3 FiO2 4L Sodium 143.9 Potassium 3.5 L Chloride 110 H Carbon Dioxide 24 Anion Gap 10 BUN 22 H Creatinine 0.55 Est GFR ( Amer) > 60 Est GFR (Non-Af Amer) > 60 Glucose 88 Calcium 8.3 L Impressions: Chest X-Ray 06/01/18 09:03 IMPRESSION: COPD. Left basilar pneumonia. Head CT 06/01/18 09:05 IMPRESSION: 1. Chronic changes of atrophy and old right MCA infarct. No acute intracranial abnormality. EVIDENCE OF ACUTE STROKE: NO. Assessment & Plan - Diagnosis (1) Acute respiratory failure with hypoxia Is this a current diagnosis for this admission?: Yes (2) Sepsis Qualifiers: Sepsis type: sepsis due to unspecified organism Qualified Code(s): A41.9 - Sepsis, unspecified organism Is this a current diagnosis for this admission?: Yes (3) Mental status, decreased Is this a current diagnosis for this admission?: Yes (4) Urinary tract infection Qualifiers: Urinary tract infection type: site unspecified Hematuria presence: without hematuria Qualified Code(s): N39.0 - Urinary tract infection, site not specified Is this a current diagnosis for this admission?: Yes (5) Seizure disorder Is this a current diagnosis for this admission?: Yes (6) Hyperlipidemia Qualifiers: Hyperlipidemia type: unspecified Qualified Code(s): E78.5 - Hyperlipidemia , unspecified Is this a current diagnosis for this admission?: Yes (7) Dementia Qualifiers: Dementia type: Alzheimer's disease Alzheimer's disease onset: late-onset Dementia behavioral disturbance: without behavioral disturbance Qualified Code (s): G30.1 - Alzheimer's disease with late onset; F02.80 - Dementia in other diseases classified elsewhere without behavioral disturbance; F02.80 - Dementia in other diseases classified elsewhere without behavioral disturbance; F02.80 - Dementia in other diseases classified elsewhere without behavioral disturbance Is this a current diagnosis for this admission?: Yes (8) DNR (do not resuscitate) Is this a current diagnosis for this admission?: Yes (9) Dysphasia Is this a current diagnosis for this admission?: Yes (10) Essential hypertension Is this a current diagnosis for this admission?: Yes (11) History of CVA (cerebrovascular accident) Is this a current diagnosis for this admission?: Yes - Time Time Spent with patient: 15-24 minutes - Plan Summary Plan Summary: Acute respiratory failure w/ hypoxia- off of bipap- currently on 2L O2 and saturating well- likely 2/2 seizure leading to aspiration pneumonia- but unwitnessed. see plan for aspiration pneumonia. Will keep her NPO for now. c/w IV fluids to hydrate her Sepsis-2/2 Aspiration pneumonia vs UTI- unclear at this time- she received Rocephin and vanco in the ED. c/w IV Zosyn and Vanco. NPO for now- but will switch to pureed and nectar thick liquids when ready. bronchial hygiene when appropriate. will add nebulizer treatment to help breath better. BCx sent and pending. UCx is growing GNRs- no sensitivities yet. Aspiration pneumonia- see plan above UTI- UCx sent and is growing GNRs- pending sensitivities. has history of recurrent UTI- c/w IV Abx as mentioned above Seizure disorder- i have started her on IV dilantin 100mg Q8 and see how she does. her dilantin level was low at 7.8. HTN- will hold meds since she's NPO- added hydralazine PRN H/O CVA- NPO- will hold aggrenox for now. i have switched her to Lovenox 30mg for proph for now Will start on Protonix for GI proph
[2018-06-02] MEDS: ENOXAPARIN SODIUM INJ 30 MG/0.3 ML DISP.SYRIN SUBCUT SCH (13:25)
[2018-06-02] MEDS: PHENYTOIN SODIUM INJ/PF 100 MG/2 ML SDV IV SCH ×2 (13:55→21:31)
[2018-06-02] MEDS: NORMAL SALINE 1000 ML 1,000 ML IV PRN (14:35)
[2018-06-02] MEDS ORDERED: DEXTROSE 5%-1/2 NORMAL SALINE 1,000 ML IV PRN (18:08)
[2018-06-03] MEDS: PIPERACILLIN SODIUM/TAZOBACTAM 2.25 GM in NORMAL SALINE 50 ML IV SCH ×4 (00:32→17:46)
[2018-06-03 05:04] LABS: ABSOLUTE EOSINOPHILS # (AUTO) 0.1 10^3/uL (0.0-0.6); ABSOLUTE LYMPHOCYTES (AUTO) 1.2 10^3/uL (0.5-4.7); ABSOLUTE MONOCYTES (AUTO) 0.8 10^3/uL (0.1-1.4); BASOPHILS % (AUTO) 0.2 % (0-2); HEMATOCRIT 22.2 % (36.0-47.0); LYMPHOCYTES % (AUTO) 9.6 % (13-45); MEAN CORPUSCULAR HEMOGLOBIN 35.3 pg (27.0-33.4); MEAN CORPUSCULAR HGB CONC 33.7 g/dL (32.0-36.0); MEAN CORPUSCULAR VOLUME 105 fl (80-97); MONOCYTES % (AUTO) 6.9 % (3-13); PLATELET COUNT 174 10^3/uL (150-450); RED BLOOD COUNT 2.12 10^6/uL (3.72-5.28); SEGMENTED NEUTROPHILS % (AUTO) 82.3 % (42-78); TOTAL CELLS COUNTED % (AUTO) 100 %; WHITE BLOOD COUNT 12.2 10^3/uL (4.0-10.5)
[2018-06-03 05:21] LABS: HEMOGLOBIN 7.5 g/dL (12.0-15.5)
[2018-06-03 05:38] LABS: ANION GAP 11 (5-19); BLOOD UREA NITROGEN 19 mg/dL (7-20); CALCIUM 8.3 mg/dL (8.4-10.2); CARBON DIOXIDE 23 mmol/L (22-30); CHLORIDE 112 mmol/L (98-107); GLUCOSE 116 mg/dL (75-110); SODIUM 145.9 mmol/L (137-145)
[2018-06-03] MEDS: PHENYTOIN SODIUM INJ/PF 100 MG/2 ML SDV IV SCH ×3 (06:10→21:16)
[2018-06-03] MEDS: IPRATROPIUM/ALBUTEROL 0.5-2.5 MG/3 ML AMPUL NEB SCH ×3 (07:58→20:06)
[2018-06-03] MEDS: POTASSI CL 20 MEQ/50 ML RIDER 20 MEQ/50 ML RTUPB IV SCH ×2 (08:08→10:16)
[2018-06-03] MEDS: PANTOPRAZOLE SODIUM 40 MG VIAL IV SCH (10:16)
[2018-06-03] MEDS: ENOXAPARIN SODIUM INJ 30 MG/0.3 ML DISP.SYRIN SUBCUT SCH (10:16)
[2018-06-03] MEDS: POTASSI CL 20 MEQ/D5-1/2NS 1L 1,000 ML IV PRN (13:21)
--- NOTE | 2018-06-03 14:19 | PDOC PROGRESS REPORT ---
Subjective Progress Note for:: 06/03/18 - Seen on rounds this morning Subjective:: Seen on rounds this morning and spoke with son-in-law Elmer. Elmer patient try to recheck and yesterday patient was much more alert and awake and seem to be at her baseline. This morning she is still a little sleepy and that is only 8:30 in the morning. Caregivers are also at bedside and agrees that she was much more alert yesterday afternoon and evening. Elmer tells me that patient did try to reach out and touch him while he was standing at bedside. She is also starting to eat somewhat at this time. Reason For Visit: ASPIRATION PNEUMONIA,ACUTE RESPIRATORY FAILURE, Physical Exam Vital Signs: Temp Pulse Resp BP Pulse Ox 98.2 F 87 14 127/49 H 100 06/03/18 11:41 06/03/18 11:41 06/03/18 11:41 06/03/18 11:41 06/03/18 11:41 Intake & Output 06/02/18 06/03/18 06/04/18 06:59 06:59 06:59 Intake Total 763 1450 900 Output Total 1 Balance 762 1450 900 Weight 77 lb 9.643 oz 77 lb 9.643 oz General appearance: PRESENT: no acute distress, other - Cachectic and frail- appearing Head exam: PRESENT: atraumatic, normocephalic Eye exam: PRESENT: other - Does not really follow commands for me to evaluate adequately. ABSENT: scleral icterus Ear exam: PRESENT: normal external ear exam Mouth exam: PRESENT: tongue midline Teeth exam: PRESENT: poor dentation Neck exam: ABSENT: tracheal deviation Cardiovascular exam: PRESENT: +S1, +S2 Pulses: PRESENT: +2 pedal pulses bilateral GI/Abdominal exam: PRESENT: normal bowel sounds, soft. ABSENT: tenderness Extremities exam: ABSENT: pedal edema Neurological exam: PRESENT: awake, CN II-XII grossly intact, other - I asked her to open her eyes and she did. When I called her name she opened it again. I asked her to squeeze my hands and she did that with her left hand. She was unable to do it as well with her right hand and she has a history of CVA Skin exam: PRESENT: dry, skin tears - Superficial noted on the body with some ecchymosis, warm Results Laboratory Results: 06/03/18 04:23 06/03/18 04:23 06/03/18 06/03/18 04:23 04:23 WBC 12.2 H RBC 2.12 L Hgb 7.5 L Hct 22.2 L MCV 105 H MCH 35.3 H MCHC 33.7 RDW 14.0 Plt Count 174 Seg Neutrophils % 82.3 H Lymphocytes % 9.6 L Monocytes % 6.9 Eosinophils % 1.0 Basophils % 0.2 Absolute Neutrophils 10.0 H Absolute Lymphocytes 1.2 Absolute Monocytes 0.8 Absolute Eosinophils 0.1 Absolute Basophils 0.0 Sodium 145.9 H Potassium 3.0 L* Chloride 112 H Carbon Dioxide 23 Anion Gap 11 BUN 19 Creatinine 0.37 L Est GFR ( Amer) > 60 Est GFR (Non-Af Amer) > 60 Glucose 116 H Calcium 8.3 L Magnesium 1.9 Impressions: Chest X-Ray 06/01/18 09:03 IMPRESSION: COPD. Left basilar pneumonia. Head CT 06/01/18 09:05 IMPRESSION: 1. Chronic changes of atrophy and old right MCA infarct. No acute intracranial abnormality. EVIDENCE OF ACUTE STROKE: NO. Assessment & Plan - Diagnosis (1) Acute respiratory failure with hypoxia Is this a current diagnosis for this admission?: Yes (2) Sepsis Qualifiers: Sepsis type: sepsis due to unspecified organism Qualified Code(s): A41.9 - Sepsis, unspecified organism Is this a current diagnosis for this admission?: Yes (3) Mental status, decreased Is this a current diagnosis for this admission?: Yes (4) Urinary tract infection Qualifiers: Urinary tract infection type: site unspecified Hematuria presence: without hematuria Qualified Code(s): N39.0 - Urinary tract infection, site not specified Is this a current diagnosis for this admission?: Yes (5) Seizure disorder Is this a current diagnosis for this admission?: Yes (6) Hyperlipidemia Qualifiers: Hyperlipidemia type: unspecified Qualified Code(s): E78.5 - Hyperlipidemia , unspecified Is this a current diagnosis for this admission?: Yes (7) Dementia Qualifiers: Dementia type: Alzheimer's disease Alzheimer's disease onset: late-onset Dementia behavioral disturbance: without behavioral disturbance Qualified Code (s): G30.1 - Alzheimer's disease with late onset; F02.80 - Dementia in other diseases classified elsewhere without behavioral disturbance; F02.80 - Dementia in other diseases classified elsewhere without behavioral disturbance; F02.80 - Dementia in other diseases classified elsewhere without behavioral disturbance Is this a current diagnosis for this admission?: Yes (8) DNR (do not resuscitate) Is this a current diagnosis for this admission?: Yes (9) Dysphasia Is this a current diagnosis for this admission?: Yes (10) Essential hypertension Is this a current diagnosis for this admission?: Yes (11) History of CVA (cerebrovascular accident) Is this a current diagnosis for this admission?: Yes - Time Time Spent with patient: 15-24 minutes - Plan Summary Plan Summary: Acute respiratory failure w/ [id number] of bipap- currently on 2L O2 and saturating well-I have asked nursing to wean her oxygen as tolerated to saturation greater than 92%- likely this was 2/2 seizure leading to aspiration pneumonia- but unwitnessed. see plan for aspiration pneumonia. c/w IV fluids to hydrate her Sepsis-improving as her white count is trending down. Likely 2/2 Aspiration pneumonia and UTI-chest x-ray did show left lower lobe pneumonia. Unclear at this time- she received Rocephin and vanco in the ED. c/w IV Zosyn and Vanco. She was evaluated by speech and recommendations were made. Bronchial hygiene when appropriate. Continue with nebulizer treatment to help breathe better. BCx so far remains negative. UCx is growing Pseudomonas and gram-negative rods- pansensitive Aspiration pneumonia- see plan above. Chest x-ray did show lower lobe pneumonia on the left. UTI- UCx sent and is growing Pseudomonas and gram-negative rods- pansensitivitie. has history of recurrent UTI- c/w IV Abx as mentioned above Seizure disorder- i have started her on IV dilantin 100mg Q8 and see how she does. her dilantin level was low at 7.8. HTN- will hold meds since her blood pressure is well controlled without meds- added hydralazine PRN H/O CVA-evaluated by speech- will hold aggrenox for now. On Lovenox 30mg prevention Will start on Protonix for GI proph Overall she is making good progress All her home meds are on hold due to her current condition-they will only to be restarted in 1-2 days as she is able to tolerate p.o. more
[2018-06-04] MEDS: PIPERACILLIN SODIUM/TAZOBACTAM 2.25 GM in NORMAL SALINE 50 ML IV SCH ×5 (00:55→23:17)
[2018-06-04 06:34] LABS: ABSOLUTE EOSINOPHILS # (AUTO) 0.2 10^3/uL (0.0-0.6); ABSOLUTE LYMPHOCYTES (AUTO) 1.3 10^3/uL (0.5-4.7); ABSOLUTE NEUT (AUTO) 8.6 10^3/uL (1.7-8.2); BASOPHILS % (AUTO) 0.2 % (0-2); EOSINOPHILS % (AUTO) 1.7 % (0-6); HEMATOCRIT 24.3 % (36.0-47.0); HEMOGLOBIN 8.1 g/dL (12.0-15.5); LYMPHOCYTES % (AUTO) 11.4 % (13-45); MEAN CORPUSCULAR HEMOGLOBIN 34.9 pg (27.0-33.4); MEAN CORPUSCULAR HGB CONC 33.6 g/dL (32.0-36.0); MEAN CORPUSCULAR VOLUME 104 fl (80-97); MONOCYTES % (AUTO) 8.7 % (3-13); PLATELET COUNT 191 10^3/uL (150-450); RED BLOOD COUNT 2.34 10^6/uL (3.72-5.28); RED CELL DISTRIBUTION WIDTH 13.9 % (11.5-14.0); TOTAL CELLS COUNTED % (AUTO) 100 %
[2018-06-04] MEDS: POTASSI CL 20 MEQ/D5-1/2NS 1L 1,000 ML IV PRN ×2 (06:37→23:00)
[2018-06-04] MEDS: PHENYTOIN SODIUM INJ/PF 100 MG/2 ML SDV IV SCH ×3 (06:37→21:34)
[2018-06-04] MEDS: IPRATROPIUM/ALBUTEROL 0.5-2.5 MG/3 ML AMPUL NEB SCH ×2 (09:04→20:16)
[2018-06-04] MEDS: PANTOPRAZOLE SODIUM 40 MG VIAL IV SCH (09:32)
[2018-06-04] MEDS: ENOXAPARIN SODIUM INJ 30 MG/0.3 ML DISP.SYRIN SUBCUT SCH (09:32)
--- NOTE | 2018-06-04 19:47 | PDOC PROGRESS REPORT ---
Subjective Progress Note for:: 06/04/18 Subjective:: Patient slightly more alert today. Still without significant verbal interaction. Reason For Visit: ASPIRATION PNEUMONIA,ACUTE RESPIRATORY FAILURE, Physical Exam Vital Signs: Temp Pulse Resp BP Pulse Ox 98.3 F 84 16 140/51 H 97 06/04/18 15:16 06/04/18 19:00 06/04/18 15:16 06/04/18 15:16 06/04/18 15:16 Intake & Output 06/03/18 06/04/18 06/05/18 06:59 06:59 06:59 Intake Total 1450 2049 400 Balance 1450 2049 400 Weight 35.2 kg 41.1 kg General appearance: PRESENT: no acute distress, thin - Very frail appearing, well-developed Neck exam: ABSENT: carotid bruit, JVD, lymphadenopathy Respiratory exam: PRESENT: rales - Left base, symmetrical, unlabored. ABSENT: accessory muscle use, wheezes Cardiovascular exam: PRESENT: RRR, +S1, +S2 GI/Abdominal exam: PRESENT: normal bowel sounds, soft. ABSENT: distended, tenderness Musculoskeletal exam: PRESENT: other - Marked loss of muscle mass Neurological exam: PRESENT: altered. ABSENT: oriented to person, oriented to place, oriented to time, oriented to situation, aphasic Psychiatric exam: PRESENT: flat affect. ABSENT: agitated, anxious Results Laboratory Results: 06/04/18 04:47 06/03/18 04:23 06/04/18 04:47 WBC 11.0 H RBC 2.34 L Hgb 8.1 L Hct 24.3 L MCV 104 H MCH 34.9 H MCHC 33.6 RDW 13.9 Plt Count 191 Seg Neutrophils % 78.0 Lymphocytes % 11.4 L Monocytes % 8.7 Eosinophils % 1.7 Basophils % 0.2 Absolute Neutrophils 8.6 H Absolute Lymphocytes 1.3 Absolute Monocytes 1.0 Absolute Eosinophils 0.2 Absolute Basophils 0.0 Impressions: Chest X-Ray 06/01/18 09:03 IMPRESSION: COPD. Left basilar pneumonia. Head CT 06/01/18 09:05 IMPRESSION: 1. Chronic changes of atrophy and old right MCA infarct. No acute intracranial abnormality. EVIDENCE OF ACUTE STROKE: NO. Assessment & Plan - Diagnosis (1) Acute respiratory failure with hypoxia Is this a current diagnosis for this admission?: Yes Plan: Continues to wean off of her oxygen. There are no labored respirations. She is no longer on BiPAP. (2) Sepsis Qualifiers: Sepsis type: Pseudomonas Qualified Code(s): A41.52 - Sepsis due to Pseudomonas Is this a current diagnosis for this admission?: Yes Plan: The patient's urine culture has grown out pseudomonas aeruginosa. She is currently on vancomycin and Zosyn. These antibiotics will also cover the left lower lobe pneumonia. Continue antibiotics as ordered. Her blood pressure has been stable. Her white blood cell count is very close to normal. Cognitively she may very well be at her baseline. Normally she interacts very little and is practically nonverbal. (3) Left lower lobe pneumonia Qualifiers: Pneumonia type: aspiration pneumonia Aspiration pneumonia type: unspecified Qualified Code(s): J69.0 - Pneumonitis due to inhalation of food and vomit Is this a current diagnosis for this admission?: Yes Plan: Continue antibiotics as ordered. Wean oxygen as tolerated. (4) Cystitis due to Pseudomonas Is this a current diagnosis for this admission?: Yes Plan: Continue Zosyn to cover Pseudomonas. (5) Dysphagia Is this a current diagnosis for this admission?: Yes Plan: The patient was seen by speech-language pathology. A bedside swallow was somewhat limited due to lethargy. The patient is currently on nectar thick liquids with pured foods. (6) Protein-calorie malnutrition, severe Is this a current diagnosis for this admission?: Yes Plan: The patient's BMI is under 18. She has had significant weight loss over the last year or so. The dietitian has consulted and we are following the recommendations. - Time Time Spent with patient: 25-34 minutes Medications reviewed and adjusted accordingly: Yes
[2018-06-05 04:49] LABS: HEMATOCRIT 26.2 % (36.0-47.0); HEMOGLOBIN 9.1 g/dL (12.0-15.5); MEAN CORPUSCULAR HEMOGLOBIN 35.5 pg (27.0-33.4); MEAN CORPUSCULAR HGB CONC 34.6 g/dL (32.0-36.0); MEAN CORPUSCULAR VOLUME 103 fl (80-97); PLATELET COUNT 210 10^3/uL (150-450); RED BLOOD COUNT 2.56 10^6/uL (3.72-5.28); RED CELL DISTRIBUTION WIDTH 13.8 % (11.5-14.0); WHITE BLOOD COUNT 10.3 10^3/uL (4.0-10.5)
[2018-06-05] MEDS: PHENYTOIN SODIUM INJ/PF 100 MG/2 ML SDV IV SCH (05:06)
[2018-06-05] MEDS: PIPERACILLIN SODIUM/TAZOBACTAM 2.25 GM in NORMAL SALINE 50 ML IV SCH ×3 (05:07→17:37)
[2018-06-05 05:09] LABS: ANION GAP 10 (5-19); BLOOD UREA NITROGEN 7 mg/dL (7-20); CARBON DIOXIDE 22 mmol/L (22-30); CHLORIDE 108 mmol/L (98-107); GLUCOSE 106 mg/dL (75-110); POTASSIUM 3.3 mmol/L (3.6-5.0); SODIUM 139.5 mmol/L (137-145)
[2018-06-05] MEDS ORDERED: METOPROLOL TARTRATE 50 MG TABLET PO ONE (08:00)
[2018-06-05] MEDS ORDERED: ACETAMINOPHEN 650 MG SUPP.RECT PR PRN (08:17)
[2018-06-05] MEDS ORDERED: ACETAMINOPHEN 325 MG TABLET PO PRN (08:17)
[2018-06-05] MEDS: IPRATROPIUM/ALBUTEROL 0.5-2.5 MG/3 ML AMPUL NEB SCH ×2 (08:44→19:52)
--- NOTE | 2018-06-05 08:58 | EKG REPORT ---
SEVERITY:- ABNORMAL ECG - ATRIAL FIBRILLATION, V-RATE 86-139 LOW VOLTAGE IN FRONTAL LEADS : Confirmed by: Mamie Angel 05-Jun-2018 08:57:32
[2018-06-05] MEDS: MAGNESIUM SULFATE/D5W 1 GM/100 ML RTUPB IV SCH ×3 (09:09→12:11)
[2018-06-05] MEDS: ENOXAPARIN SODIUM INJ 30 MG/0.3 ML DISP.SYRIN SUBCUT SCH (09:10)
[2018-06-05] MEDS: MEMANTINE HCL 10 MG TABLET PO SCH ×2 (09:10→17:37)
[2018-06-05] MEDS: ESCITALOPRAM OXALATE 10 MG TABLET PO SCH (09:10)
[2018-06-05] MEDS: POTASSI CL 20 MEQ/50 ML RIDER 20 MEQ/50 ML RTUPB IV SCH ×2 (09:10→11:03)
[2018-06-05] MEDS: DILTIAZEM HCL 30 MG TABLET PO SCH ×2 (13:25→21:18)
[2018-06-05] MEDS: HYDRALAZINE HCL 25 MG TABLET PO SCH ×2 (13:26→17:37)
[2018-06-05] MEDS: PHENYTOIN 50 MG TAB.CHEW PO SCH ×2 (13:51→21:17)
[2018-06-05 16:29] LABS: ANION GAP 8 (5-19); BLOOD UREA NITROGEN 7 mg/dL (7-20); CALCIUM 7.9 mg/dL (8.4-10.2); CARBON DIOXIDE 23 mmol/L (22-30); CHLORIDE 109 mmol/L (98-107); GLUCOSE 148 mg/dL (75-110); POTASSIUM 3.5 mmol/L (3.6-5.0); SODIUM 139.7 mmol/L (137-145)
[2018-06-05] MEDS ORDERED: POTASSI CL 20 MEQ/50 ML RIDER 20 MEQ/50 ML RTUPB IV ONE (19:42)
--- NOTE | 2018-06-05 20:05 | PDOC PROGRESS REPORT ---
Subjective Progress Note for:: 06/05/18 Subjective:: Patient slightly more alert today. Still without significant verbal interaction. June 05, 2018-the patient is alert this morning. Family reports that she was trying to verbalize earlier. She did not attempt to verbalize to me. She is being fed breakfast. She does not appear to be in distress. On telemetry, however, the patient was in atrial fibrillation with rapid ventricular response. Reason For Visit: ASPIRATION PNEUMONIA,ACUTE RESPIRATORY FAILURE, New onset atrial fibrillation Physical Exam Vital Signs: Temp Pulse Resp BP Pulse Ox 97.9 F 83 20 120/52 L 94 06/05/18 15:27 06/05/18 15:27 06/05/18 15:27 06/05/18 15:27 06/05/18 15:27 Intake & Output 06/04/18 06/05/18 06/06/18 06:59 06:59 06:59 Intake Total 2049 1500 1852 Balance 2049 1500 1852 Weight 41.1 kg 41.1 kg General appearance: PRESENT: no acute distress, thin, well-developed Eye exam: PRESENT: conjunctiva pale. ABSENT: scleral icterus Ear exam: PRESENT: normal external ear exam Mouth exam: PRESENT: moist Respiratory exam: PRESENT: rales - Faint rales on left., symmetrical, unlabored. ABSENT: chest wall tenderness, rhonchi, stridor, wheezes Cardiovascular exam: PRESENT: irregular rhythm GI/Abdominal exam: PRESENT: normal bowel sounds, soft. ABSENT: distended, tenderness Extremities exam: PRESENT: other - Significant loss of muscle mass Musculoskeletal exam: PRESENT: other - As above Neurological exam: PRESENT: alert, altered, aphasic. ABSENT: oriented to person , oriented to place, oriented to time, oriented to situation Psychiatric exam: PRESENT: flat affect. ABSENT: agitated, anxious Skin exam: PRESENT: other - Thin skin with ecchymosis upper extremities. Results Laboratory Results: 06/05/18 04:22 06/05/18 15:55 06/05/18 06/05/18 06/05/18 04:22 04:22 15:55 WBC 10.3 RBC 2.56 L Hgb 9.1 L Hct 26.2 L MCV 103 H MCH 35.5 H MCHC 34.6 RDW 13.8 Plt Count 210 Sodium 139.5 139.7 Potassium 3.3 L 3.5 L Chloride 108 H 109 H Carbon Dioxide 22 23 Anion Gap 10 8 BUN 7 7 Creatinine 0.33 L 0.37 L Est GFR ( Amer) > 60 > 60 Est GFR (Non-Af Amer) > 60 > 60 Glucose 106 148 H Calcium 8.0 L 7.9 L Magnesium 1.5 L 2.8 H D EKG Comments: By telemetry the patient was in atrial fibrillation. EKG revealed atrial fibrillation with a rate of approximately 120. Impressions: Chest X-Ray 06/01/18 09:03 IMPRESSION: COPD. Left basilar pneumonia. Head CT 06/01/18 09:05 IMPRESSION: 1. Chronic changes of atrophy and old right MCA infarct. No acute intracranial abnormality. EVIDENCE OF ACUTE STROKE: NO. Assessment & Plan - Diagnosis (1) Paroxysmal atrial fibrillation with rapid ventricular response Is this a current diagnosis for this admission?: Yes Plan: Because of a debilitated swallow and low blood pressure the patient's metoprolol and nifedipine were on hold. The patient was given a single dose of metoprolol tartrate 50 mg. She was then started on metoprolol tartrate 25 mg twice daily. In addition, nifedipine showed an interaction with her Dilantin. Therefore discontinued her nifedipine and started diltiazem 30 mg every 8 hours. The patient subsequently converted back to normal sinus rhythm. If she remains in normal sinus rhythm I will not pursue anticoagulation. Considering her age and frailty I feel the risks would outweigh any benefit. (2) Hypokalemia Is this a current diagnosis for this admission?: Yes Plan: The patient's serum potassium is low. This could be contributing to her arrhythmia. She will be given intravenous supplementation and started on oral potassium chloride. Continue to follow electrolytes. (3) Hypomagnesemia Is this a current diagnosis for this admission?: Yes Plan: Patient serum magnesium level was low. This could be contributing to her arrhythmia. IV magnesium sulfate was ordered. Follow magnesium level. (4) Acute respiratory failure with hypoxia Is this a current diagnosis for this admission?: Yes Plan: Continues to wean off of her oxygen. There are no labored respirations. She is no longer on BiPAP. 06/05/2018-the patient appears to be stable. Family reports that she seems to be back at her baseline. (5) Sepsis Qualifiers: Sepsis type: Pseudomonas Qualified Code(s): A41.52 - Sepsis due to Pseudomonas Is this a current diagnosis for this admission?: Yes Plan: The patient's urine culture has grown out pseudomonas aeruginosa. She is currently on vancomycin and Zosyn. These antibiotics will also cover the left lower lobe pneumonia. Continue antibiotics as ordered. Her blood pressure has been stable. Her white blood cell count is very close to normal. Cognitively she may very well be at her baseline. Normally she interacts very little and is practically nonverbal. 06/05/2018-sepsis resolved (6) Left lower lobe pneumonia Qualifiers: Pneumonia type: aspiration pneumonia Aspiration pneumonia type: unspecified Qualified Code(s): J69.0 - Pneumonitis due to inhalation of food and vomit Is this a current diagnosis for this admission?: Yes Plan: Continue antibiotics as ordered. Wean oxygen as tolerated. 06/05/2018-the patient remains afebrile. Her white blood cell count is now normal. Complete Zosyn therapy as ordered (and June 08). Left lung exam continues to improve. (7) Cystitis due to Pseudomonas Is this a current diagnosis for this admission?: Yes Plan: Continue Zosyn to cover Pseudomonas. 06/05/2018-complete Zosyn therapy through June 08, 2018. (8) Dysphagia Qualifiers: Dysphagia type: oropharyngeal phase Qualified Code(s): R13.12 - Dysphagia, oropharyngeal phase Is this a current diagnosis for this admission?: Yes Plan: The patient was seen by speech-language pathology. A bedside swallow was somewhat limited due to lethargy. The patient is currently on nectar thick liquids with pured foods. 06/05/2018-the limited bedside swallow evaluation did reveal a lack of volitional swallow as well as volitional cough. The patient seems to be doing well on the pured diet. (9) Protein-calorie malnutrition, severe Is this a current diagnosis for this admission?: Yes Plan: The patient's BMI is under 18. She has had significant weight loss over the last year or so. The dietitian has consulted and we are following the recommendations. 06/05/2018-BMI is only 15. She does exhibit significant loss of muscle mass and has a history of weight loss over the last 18 months. Continue to try to meet nutritional goals by oral diet if possible. (10) Seizure disorder Is this a current diagnosis for this admission?: Yes Plan: 06/05/2018-the patient was receiving IV Dilantin. She typically takes 100 mg in the morning and 160 mg at night when at home. The extended release form is used. I discontinued the IV medication now that she has a somewhat functional swallow. I will administer 50 mg 3 times a day as this formulation can be crushed and delivered with her (11) Essential hypertension Is this a current diagnosis for this admission?: Yes Plan: The patient normally takes hydralazine at home. I will initiate a lower dose by mouth. There will be parameters to hold for systolic pressure less than 100. It is possible that the patient may not need hydralazine with the change in her medications to diltiazem with the metoprolol. We will monitor her blood pressure and adjust her medications accordingly.
[2018-06-05] MEDS: METOPROLOL TARTRATE 25 MG TABLET PO SCH (21:17)
[2018-06-05] MEDS: ATORVASTATIN CALCIUM 20 MG TABLET PO SCH (21:17)
[2018-06-06] MEDS: PIPERACILLIN SODIUM/TAZOBACTAM 2.25 GM in NORMAL SALINE 50 ML IV SCH ×5 (00:53→23:42)
[2018-06-06] MEDS: HYDRALAZINE HCL 25 MG TABLET PO SCH ×5 (00:53→23:45)
[2018-06-06 05:00] LABS: HEMATOCRIT 24.7 % (36.0-47.0); HEMOGLOBIN 8.3 g/dL (12.0-15.5); MEAN CORPUSCULAR HEMOGLOBIN 34.7 pg (27.0-33.4); MEAN CORPUSCULAR HGB CONC 33.7 g/dL (32.0-36.0); MEAN CORPUSCULAR VOLUME 103 fl (80-97); PLATELET COUNT 215 10^3/uL (150-450); RED BLOOD COUNT 2.39 10^6/uL (3.72-5.28); RED CELL DISTRIBUTION WIDTH 13.9 % (11.5-14.0); WHITE BLOOD COUNT 12.4 10^3/uL (4.0-10.5)
[2018-06-06 05:30] LABS: ANION GAP 9 (5-19); BLOOD UREA NITROGEN 8 mg/dL (7-20); CARBON DIOXIDE 22 mmol/L (22-30); CHLORIDE 111 mmol/L (98-107); GLUCOSE 82 mg/dL (75-110)
[2018-06-06] MEDS: DILTIAZEM HCL 30 MG TABLET PO SCH ×3 (05:56→21:32)
[2018-06-06] MEDS: PHENYTOIN 50 MG TAB.CHEW PO SCH ×3 (05:56→21:33)
[2018-06-06] MEDS: IPRATROPIUM/ALBUTEROL 0.5-2.5 MG/3 ML AMPUL NEB SCH ×2 (08:50→20:13)
[2018-06-06] MEDS ORDERED: POTASSIUM CHLORIDE 10 MEQ CAPSULE.ER PO SCH (10:00)
[2018-06-06] MEDS: ENOXAPARIN SODIUM INJ 30 MG/0.3 ML DISP.SYRIN SUBCUT SCH (10:49)
[2018-06-06] MEDS: METOPROLOL TARTRATE 25 MG TABLET PO SCH ×2 (10:51→21:32)
[2018-06-06] MEDS: MEMANTINE HCL 10 MG TABLET PO SCH ×2 (10:51→18:04)
[2018-06-06] MEDS: POTASSIUM CHLORIDE 20 MEQ/15 ML UDCUP PO SCH (10:52)
[2018-06-06] MEDS: ESCITALOPRAM OXALATE 10 MG TABLET PO SCH (10:52)
--- NOTE | 2018-06-06 15:00 | PDOC PROGRESS REPORT ---
Subjective Progress Note for:: 06/06/18 Subjective:: Patient slightly more alert today. Still without significant verbal interaction. June 05, 2018-the patient is alert this morning. Family reports that she was trying to verbalize earlier. She did not attempt to verbalize to me. She is being fed breakfast. She does not appear to be in distress. On telemetry, however, the patient was in atrial fibrillation with rapid ventricular response. 06/06/2018-the patient is alert again today. She is nonverbal. She is resting on her side. She recently finished lunch. She is in no distress. Reason For Visit: ASPIRATION PNEUMONIA,ACUTE RESPIRATORY FAILURE, Physical Exam Vital Signs: Temp Pulse Resp BP Pulse Ox 98.6 F 120 H 16 137/50 H 97 06/06/18 11:43 06/06/18 11:43 06/06/18 11:43 06/06/18 11:43 06/06/18 11:43 Intake & Output 06/05/18 06/06/18 06/07/18 06:59 06:59 06:59 Intake Total 1500 2001 150 Balance 1500 2001 150 Weight 41.1 kg 41.5 kg General appearance: PRESENT: no acute distress, thin, other - No verbal interaction due to aphasia. Respiratory exam: PRESENT: rales - Faint rales at the left base, symmetrical, unlabored. ABSENT: chest wall tenderness, crackles, wheezes GI/Abdominal exam: PRESENT: normal bowel sounds, soft. ABSENT: distended, tenderness Musculoskeletal exam: PRESENT: other - Decreased muscle mass Neurological exam: PRESENT: awake, aphasic. ABSENT: oriented to person, oriented to place Psychiatric exam: ABSENT: agitated, anxious Results Laboratory Results: 06/06/18 04:08 06/06/18 04:08 06/05/18 06/06/18 06/06/18 15:55 04:08 04:08 WBC 12.4 H RBC 2.39 L Hgb 8.3 L Hct 24.7 L MCV 103 H MCH 34.7 H MCHC 33.7 RDW 13.9 Plt Count 215 Sodium 139.7 142.0 Potassium 3.5 L 4.0 Chloride 109 H 111 H Carbon Dioxide 23 22 Anion Gap 8 9 BUN 7 8 Creatinine 0.37 L 0.31 L Est GFR ( Amer) > 60 > 60 Est GFR (Non-Af Amer) > 60 > 60 Glucose 148 H 82 Calcium 7.9 L 8.0 L Magnesium 2.8 H D 2.3 06/01/18 12:22 Blood Blood Culture - Final NO GROWTH IN 5 DAYS Impressions: Chest X-Ray 06/01/18 09:03 IMPRESSION: COPD. Left basilar pneumonia. Head CT 06/01/18 09:05 IMPRESSION: 1. Chronic changes of atrophy and old right MCA infarct. No acute intracranial abnormality. EVIDENCE OF ACUTE STROKE: NO. Assessment & Plan - Diagnosis (1) Paroxysmal atrial fibrillation with rapid ventricular response Is this a current diagnosis for this admission?: Yes Plan: Because of a debilitated swallow and low blood pressure the patient's metoprolol and nifedipine were on hold. The patient was given a single dose of metoprolol tartrate 50 mg. She was then started on metoprolol tartrate 25 mg twice daily. In addition, nifedipine showed an interaction with her Dilantin. Therefore discontinued her nifedipine and started diltiazem 30 mg every 8 hours. The patient subsequently converted back to normal sinus rhythm. If she remains in normal sinus rhythm I will not pursue anticoagulation. Considering her age and frailty I feel the risks would outweigh any benefit. 06/06/2018-she has been in sinus rhythm through the night. She is tolerating her medications well. (2) Hypokalemia Is this a current diagnosis for this admission?: Yes (3) Hypomagnesemia Is this a current diagnosis for this admission?: Yes Plan: Patient serum magnesium level was low. This could be contributing to her arrhythmia. IV magnesium sulfate was ordered. Follow magnesium level. 06/06/2018 magnesium was actually back to normal today. Will monitor serum chemistries. (4) Acute respiratory failure with hypoxia Is this a current diagnosis for this admission?: Yes Plan: Continues to wean off of her oxygen. There are no labored respirations. She is no longer on BiPAP. 06/05/2018-the patient appears to be stable. Family reports that she seems to be back at her baseline. 06/06/2018-resolved (5) Sepsis Qualifiers: Sepsis type: Pseudomonas Qualified Code(s): A41.52 - Sepsis due to Pseudomonas Is this a current diagnosis for this admission?: Yes Plan: The patient's urine culture has grown out pseudomonas aeruginosa. She is currently on vancomycin and Zosyn. These antibiotics will also cover the left lower lobe pneumonia. Continue antibiotics as ordered. Her blood pressure has been stable. Her white blood cell count is very close to normal. Cognitively she may very well be at her baseline. Normally she interacts very little and is practically nonverbal. 06/05/2018-sepsis resolved 06/06/2018-resolved (6) Left lower lobe pneumonia Qualifiers: Pneumonia type: aspiration pneumonia Aspiration pneumonia type: unspecified Qualified Code(s): J69.0 - Pneumonitis due to inhalation of food and vomit Is this a current diagnosis for this admission?: Yes Plan: Continue antibiotics as ordered. Wean oxygen as tolerated. 06/05/2018-the patient remains afebrile. Her white blood cell count is now normal. Complete Zosyn therapy as ordered (and June 08). Left lung exam continues to improve. 06/06/2018-the patient has 1 more day of IV antibiotic therapy. Her white count was slightly elevated today. We will stop her antibiotics tomorrow and repeat her white blood cell count. (7) Cystitis due to Pseudomonas Is this a current diagnosis for this admission?: Yes Plan: Continue Zosyn to cover Pseudomonas. 06/05/2018-complete Zosyn therapy through June 08, 2018. 06/06/2018-complete Zosyn therapy as ordered. (8) Dysphagia Qualifiers: Dysphagia type: oropharyngeal phase Qualified Code(s): R13.12 - Dysphagia, oropharyngeal phase Is this a current diagnosis for this admission?: Yes Plan: The patient was seen by speech-language pathology. A bedside swallow was somewhat limited due to lethargy. The patient is currently on nectar thick liquids with pured foods. 06/05/2018-the limited bedside swallow evaluation did reveal a lack of volitional swallow as well as volitional cough. The patient seems to be doing well on the pured diet. 06/06/2018-currently on pured diet with nectar thick liquids. [place] thick liquids is her baseline. (9) Protein-calorie malnutrition, severe Is this a current diagnosis for this admission?: Yes Plan: The patient's BMI is under 18. She has had significant weight loss over the last year or so. The dietitian has consulted and we are following the recommendations. 06/05/2018-BMI is only 15. She does exhibit significant loss of muscle mass and has a history of weight loss over the last 18 months. Continue to try to meet nutritional goals by oral diet if possible. 06/06/2018-continue protein supplements as suggested by the dietitian. (10) Seizure disorder Is this a current diagnosis for this admission?: Yes Plan: 06/05/2018-the patient was receiving IV Dilantin. She typically takes 100 mg in the morning and 160 mg at night when at home. The extended release form is used. I discontinued the IV medication now that she has a somewhat functional swallow. I will administer 50 mg 3 times a day as this formulation can be crushed and delivered with her 06/06/2018-currently back on short acting and 50 mg 3 times a day. No seizure activity. (11) Essential hypertension Is this a current diagnosis for this admission?: Yes Plan: The patient normally takes hydralazine at home. I will initiate a lower dose by mouth. There will be parameters to hold for systolic pressure less than 100. It is possible that the patient may not need hydralazine with the change in her medications to diltiazem with the metoprolol. We will monitor her blood pressure and adjust her medications accordingly. The patient's blood pressures have been stable with her medication changes. Her discharge medications may be lower than the doses prior to admission. - Time Time Spent with patient: 25-34 minutes Medications reviewed and adjusted accordingly: Yes Anticipated discharge: Home
[2018-06-06] MEDS: ATORVASTATIN CALCIUM 20 MG TABLET PO SCH (21:30)
[2018-06-07] MEDS ORDERED: HYDRALAZINE HCL 25 MG TABLET PO SCH
[2018-06-07 04:55] LABS: HEMATOCRIT 21.9 % (36.0-47.0); MEAN CORPUSCULAR HEMOGLOBIN 34.8 pg (27.0-33.4); MEAN CORPUSCULAR HGB CONC 33.6 g/dL (32.0-36.0); MEAN CORPUSCULAR VOLUME 104 fl (80-97); PLATELET COUNT 211 10^3/uL (150-450); RED BLOOD COUNT 2.11 10^6/uL (3.72-5.28); WHITE BLOOD COUNT 10.4 10^3/uL (4.0-10.5)
[2018-06-07 04:59] LABS: HEMOGLOBIN 7.3 g/dL (12.0-15.5)
[2018-06-07 05:14] LABS: ANION GAP 7 (5-19); CARBON DIOXIDE 24 mmol/L (22-30); CHLORIDE 113 mmol/L (98-107); GLUCOSE 82 mg/dL (75-110); POTASSIUM 4.1 mmol/L (3.6-5.0); SODIUM 143.9 mmol/L (137-145)
[2018-06-07 05:15] LABS: BLOOD UREA NITROGEN 13 mg/dL (7-20)
[2018-06-07] MEDS: HYDRALAZINE HCL 25 MG TABLET PO SCH ×4 (05:21→23:58)
[2018-06-07] MEDS: PHENYTOIN 50 MG TAB.CHEW PO SCH ×3 (05:21→22:06)
[2018-06-07] MEDS: DILTIAZEM HCL 30 MG TABLET PO SCH ×3 (05:23→22:06)
[2018-06-07] MEDS: PIPERACILLIN SODIUM/TAZOBACTAM 2.25 GM in NORMAL SALINE 50 ML IV SCH ×4 (05:25→23:58)
[2018-06-07] MEDS: IPRATROPIUM/ALBUTEROL 0.5-2.5 MG/3 ML AMPUL NEB SCH ×2 (08:20→19:42)
[2018-06-07] MEDS: ESCITALOPRAM OXALATE 10 MG TABLET PO SCH (09:30)
[2018-06-07] MEDS: METOPROLOL TARTRATE 25 MG TABLET PO SCH ×2 (09:30→22:06)
[2018-06-07] MEDS: ENOXAPARIN SODIUM INJ 30 MG/0.3 ML DISP.SYRIN SUBCUT SCH (09:30)
[2018-06-07] MEDS: POTASSIUM CHLORIDE 20 MEQ/15 ML UDCUP PO SCH (09:30)
[2018-06-07] MEDS: MEMANTINE HCL 10 MG TABLET PO SCH ×2 (09:30→17:22)
[2018-06-07] MEDS ORDERED: NORMAL SALINE 250 ML IV PRN ×2 (09:58)
--- NOTE | 2018-06-07 10:51 | PDOC PROGRESS REPORT ---
Subjective Progress Note for:: 06/07/18 Subjective:: Patient slightly more alert today. Still without significant verbal interaction. June 05, 2018-the patient is alert this morning. Family reports that she was trying to verbalize earlier. She did not attempt to verbalize to me. She is being fed breakfast. She does not appear to be in distress. On telemetry, however, the patient was in atrial fibrillation with rapid ventricular response. 06/06/2018-the patient is alert again today. She is nonverbal. She is resting on her side. She recently finished lunch. She is in no distress. 06/07/2018-the patient is being given her medications in nectar thick liquid. She does require assist with triggers for swallow. She appears to be at her baseline. She does not appear to be uncomfortable. Reason For Visit: ASPIRATION PNEUMONIA,ACUTE RESPIRATORY FAILURE, Physical Exam Vital Signs: Temp Pulse Resp BP Pulse Ox 98.7 F 91 18 172/71 H 90 L 06/07/18 08:19 06/07/18 08:19 06/07/18 08:19 06/07/18 08:19 06/07/18 08:19 Intake & Output 06/06/18 06/07/18 06/08/18 06:59 06:59 06:59 Intake Total 2001 440 Balance 2001 440 Weight 41.5 kg 42.7 kg General appearance: PRESENT: no acute distress, thin - And frail Eye exam: PRESENT: conjunctiva pale. ABSENT: scleral icterus Mouth exam: PRESENT: moist Neck exam: ABSENT: carotid bruit, JVD, lymphadenopathy Respiratory exam: PRESENT: clear to auscultation martita - Unable to take deep breaths., symmetrical, unlabored. ABSENT: rhonchi, wheezes Cardiovascular exam: PRESENT: RRR, +S1, +S2 GI/Abdominal exam: PRESENT: normal bowel sounds, soft. ABSENT: distended, tenderness Extremities exam: ABSENT: full ROM, pedal edema Musculoskeletal exam: PRESENT: other - Marked loss of muscle mass. Patient is bedbound. Neurological exam: PRESENT: alert, aphasic Psychiatric exam: PRESENT: flat affect Results Laboratory Results: 06/07/18 04:25 06/07/18 04:25 06/07/18 06/07/18 04:25 04:25 WBC 10.4 RBC 2.11 L Hgb 7.3 L Hct 21.9 L MCV 104 H MCH 34.8 H MCHC 33.6 RDW 14.0 Plt Count 211 Sodium 143.9 Potassium 4.1 Chloride 113 H Carbon Dioxide 24 Anion Gap 7 BUN 13 Creatinine 0.38 L Est GFR ( Amer) > 60 Est GFR (Non-Af Amer) > 60 Glucose 82 Calcium 8.0 L Magnesium 2.0 06/01/18 12:22 Blood Blood Culture - Final NO GROWTH IN 5 DAYS Impressions: Chest X-Ray 06/01/18 09:03 IMPRESSION: COPD. Left basilar pneumonia. Head CT 06/01/18 09:05 IMPRESSION: 1. Chronic changes of atrophy and old right MCA infarct. No acute intracranial abnormality. EVIDENCE OF ACUTE STROKE: NO. Assessment & Plan - Diagnosis (1) Anemia in chronic illness Is this a current diagnosis for this admission?: Yes Plan: 06/07/2018-the patient's hemoglobin has been fluctuating. She has exhibited to levels below 8.0. I discussed this with her son-in-law Ayden Canseco, who is the healthcare power of trial attorney, and suggested transfusion of 1 unit of packed red blood cells. I explained that the benefits might be slightly more energy for the patient and she may feel better all around. It can be difficult to tell in a patient this compromise. It will likely benefit her recovery. After discussing this can he agreed. Consent was also given to the nurse. The patient will receive 1 unit of packed red blood cells today. (2) Paroxysmal atrial fibrillation with rapid ventricular response Is this a current diagnosis for this admission?: Yes Plan: Because of a debilitated swallow and low blood pressure the patient's metoprolol and nifedipine were on hold. The patient was given a single dose of metoprolol tartrate 50 mg. She was then started on metoprolol tartrate 25 mg twice daily. In addition, nifedipine showed an interaction with her Dilantin. Therefore discontinued her nifedipine and started diltiazem 30 mg every 8 hours. The patient subsequently converted back to normal sinus rhythm. If she remains in normal sinus rhythm I will not pursue anticoagulation. Considering her age and frailty I feel the risks would outweigh any benefit. 06/06/2018-she has been in sinus rhythm through the night. She is tolerating her medications well. 06/07/2018-remains in sinus rhythm (3) Hypokalemia Is this a current diagnosis for this admission?: Yes Plan: The patient's serum potassium is low. This could be contributing to her arrhythmia. She will be given intravenous supplementation and started on oral potassium chloride. Continue to follow electrolytes. 06/07/2018-potassium normal (4) Hypomagnesemia Is this a current diagnosis for this admission?: Yes Plan: Patient serum magnesium level was low. This could be contributing to her arrhythmia. IV magnesium sulfate was ordered. Follow magnesium level. 06/06/2018 magnesium was actually back to normal today. Will monitor serum chemistries. 06/07/2018-magnesium normal (5) Acute respiratory failure with hypoxia Is this a current diagnosis for this admission?: Yes Plan: Continues to wean off of her oxygen. There are no labored respirations. She is no longer on BiPAP. 06/05/2018-the patient appears to be stable. Family reports that she seems to be back at her baseline. 06/06/2018-resolved 06/07/2018-resolved (6) Sepsis Qualifiers: Sepsis type: Pseudomonas Qualified Code(s): A41.52 - Sepsis due to Pseudomonas Is this a current diagnosis for this admission?: Yes Plan: The patient's urine culture has grown out pseudomonas aeruginosa. She is currently on vancomycin and Zosyn. These antibiotics will also cover the left lower lobe pneumonia. Continue antibiotics as ordered. Her blood pressure has been stable. Her white blood cell count is very close to normal. Cognitively she may very well be at her baseline. Normally she interacts very little and is practically nonverbal. 06/05/2018-sepsis resolved 06/06/2018-resolved 06/07/2018-resolved (7) Left lower lobe pneumonia Qualifiers: Pneumonia type: aspiration pneumonia Aspiration pneumonia type: unspecified Qualified Code(s): J69.0 - Pneumonitis due to inhalation of food and vomit Is this a current diagnosis for this admission?: Yes Plan: Continue antibiotics as ordered. Wean oxygen as tolerated. 06/05/2018-the patient remains afebrile. Her white blood cell count is now normal. Complete Zosyn therapy as ordered (and June 08). Left lung exam continues to improve. 06/06/2018-the patient has 1 more day of IV antibiotic therapy. Her white count was slightly elevated today. We will stop her antibiotics tomorrow and repeat her white blood cell count. 06/07/2018-antibiotic therapy completed today. Pneumonia resolved. (8) Cystitis due to Pseudomonas Is this a current diagnosis for this admission?: Yes Plan: Continue Zosyn to cover Pseudomonas. 06/05/2018-complete Zosyn therapy through June 08, 2018. 06/06/2018-complete Zosyn therapy as ordered. 06/07/2018-antibiotic therapy completed today. Resolved. (9) Dysphagia Qualifiers: Dysphagia type: oropharyngeal phase Qualified Code(s): R13.12 - Dysphagia, oropharyngeal phase Is this a current diagnosis for this admission?: Yes Plan: The patient was seen by speech-language pathology. A bedside swallow was somewhat limited due to lethargy. The patient is currently on nectar thick liquids with pured foods. 06/05/2018-the limited bedside swallow evaluation did reveal a lack of volitional swallow as well as volitional cough. The patient seems to be doing well on the pured diet. 06/06/2018-currently on pured diet with nectar thick liquids. [place] thick liquids is her baseline. 06/07/2018-permanent. The patient requires swallowing cues and complete assist. She is likely back to her baseline. (10) Protein-calorie malnutrition, severe Is this a current diagnosis for this admission?: Yes Plan: The patient's BMI is under 18. She has had significant weight loss over the last year or so. The dietitian has consulted and we are following the recommendations. 06/05/2018-BMI is only 15. She does exhibit significant loss of muscle mass and has a history of weight loss over the last 18 months. Continue to try to meet nutritional goals by oral diet if possible. 06/06/2018-continue protein supplements as suggested by the dietitian. 06/07/2018-continue supplements as above (11) Seizure disorder Is this a current diagnosis for this admission?: Yes Plan: 06/05/2018-the patient was receiving IV Dilantin. She typically takes 100 mg in the morning and 160 mg at night when at home. The extended release form is used. I discontinued the IV medication now that she has a somewhat functional swallow. I will administer 50 mg 3 times a day as this formulation can be crushed and delivered with her 06/06/2018-currently back on short acting and 50 mg 3 times a day. No seizure activity. 06/07/2018-the patient will likely be able to transition back to her long acting medication. It depends on her swallow. If not she seems to be tolerating the short acting Dilantin without any seizure activity. (12) Essential hypertension Is this a current diagnosis for this admission?: Yes Plan: The patient normally takes hydralazine at home. I will initiate a lower dose by mouth. There will be parameters to hold for systolic pressure less than 100. It is possible that the patient may not need hydralazine with the change in her medications to diltiazem with the metoprolol. We will monitor her blood pressure and adjust her medications accordingly. 06/06/2018-the patient's blood pressures have been stable with her medication changes. Her discharge medications may be lower than the doses prior to admission. 06/07/2018-the patient did have a high systolic pressure today. We may need to increase her hydralazine but not to the full dose prior to admission. Continue to monitor blood pressure. The change in her medications for A. fib will also contribute to blood pressure control. - Time Time Spent with patient: 35 or more minutes Medications reviewed and adjusted accordingly: Yes Anticipated discharge: Home Within: within 24 hours
[2018-06-07 18:26] LABS: ABSOLUTE BASOPHILS # (AUTO) 0.1 10^3/uL (0.0-0.2); ABSOLUTE EOSINOPHILS # (AUTO) 0.5 10^3/uL (0.0-0.6); ABSOLUTE LYMPHOCYTES (AUTO) 2.5 10^3/uL (0.5-4.7); ABSOLUTE MONOCYTES (AUTO) 1.6 10^3/uL (0.1-1.4); ABSOLUTE NEUT (AUTO) 10.2 10^3/uL (1.7-8.2); BASOPHILS % (AUTO) 0.4 % (0-2); EOSINOPHILS % (AUTO) 3.5 % (0-6); HEMATOCRIT 34.3 % (36.0-47.0); MEAN CORPUSCULAR HEMOGLOBIN 33.5 pg (27.0-33.4); MEAN CORPUSCULAR HGB CONC 33.7 g/dL (32.0-36.0); MONOCYTES % (AUTO) 10.5 % (3-13); PLATELET COUNT 246 10^3/uL (150-450); RED BLOOD COUNT 3.45 10^6/uL (3.72-5.28); RED CELL DISTRIBUTION WIDTH 16.2 % (11.5-14.0); SEGMENTED NEUTROPHILS % (AUTO) 68.6 % (42-78); TOTAL CELLS COUNTED % (AUTO) 100 %; WHITE BLOOD COUNT 14.8 10^3/uL (4.0-10.5)
[2018-06-07 18:27] LABS: HEMOGLOBIN 11.6 g/dL (12.0-15.5); MEAN CORPUSCULAR VOLUME 99 fl (80-97)
[2018-06-07] MEDS ORDERED: HYDRALAZINE HCL INJ/PF 20 MG/1 ML SDV ONE (20:10)
[2018-06-07] MEDS ORDERED: HYDRALAZINE HCL INJ/PF 20 MG/1 ML SDV IV ONE (20:30)
[2018-06-07] MEDS: ATORVASTATIN CALCIUM 20 MG TABLET PO SCH (22:06)
[2018-06-08] MEDS: PIPERACILLIN SODIUM/TAZOBACTAM 2.25 GM in NORMAL SALINE 50 ML IV SCH (05:41)
[2018-06-08] MEDS: HYDRALAZINE HCL 25 MG TABLET PO SCH (05:41)
[2018-06-08] MEDS: PHENYTOIN 50 MG TAB.CHEW PO SCH (05:42)
[2018-06-08] MEDS: DILTIAZEM HCL 30 MG TABLET PO SCH (05:42)
[2018-06-08] MEDS: IPRATROPIUM/ALBUTEROL 0.5-2.5 MG/3 ML AMPUL NEB SCH (08:15)
[2018-06-08 08:54] LABS: HEMATOCRIT 31.5 % (36.0-47.0); HEMOGLOBIN 10.8 g/dL (12.0-15.5); MEAN CORPUSCULAR HEMOGLOBIN 33.6 pg (27.0-33.4); MEAN CORPUSCULAR HGB CONC 34.2 g/dL (32.0-36.0); MEAN CORPUSCULAR VOLUME 98 fl (80-97); PLATELET COUNT 240 10^3/uL (150-450); RED BLOOD COUNT 3.21 10^6/uL (3.72-5.28); RED CELL DISTRIBUTION WIDTH 16.3 % (11.5-14.0)
[2018-06-08] MEDS: POTASSIUM CHLORIDE 20 MEQ/15 ML UDCUP PO SCH (09:01)
[2018-06-08] MEDS: MEMANTINE HCL 10 MG TABLET PO SCH (09:02)
[2018-06-08] MEDS: ESCITALOPRAM OXALATE 10 MG TABLET PO SCH (09:02)
[2018-06-08] MEDS: METOPROLOL TARTRATE 25 MG TABLET PO SCH (09:03)
[2018-06-08] MEDS: ENOXAPARIN SODIUM INJ 30 MG/0.3 ML DISP.SYRIN SUBCUT SCH (09:03)
[2018-06-08 11:01] VITALS: BP 191/76
--- NOTE | 2018-06-08 11:06 | PDOC DISCHARGE SUMMARY ---
General - Admit/Disc Date/PCP Admission Date/Primary Care Provider: 06/01/18 11:04 DELISA MCLEAN MD Discharge Date: 06/08/18 - Discharge Diagnosis (1) Anemia in chronic illness Is this a current diagnosis for this admission?: Yes Summary: Patient has a history of anemia likely due to her chronic illness. Her hemoglobin slowly declined during her admission. It may have been exacerbated by the severity of her illness. There were 2 readings that were below 8.0. Since this was consistent I did transfuse the patient with 1 unit of packed red blood cells. Her private caregivers did recognize an improvement. Interestingly her hemoglobin jumped from 7.3-11 which is more than I would expect. She is extremely small in stature. I did recheck it. It was consistent with the specimen drawn earlier today. Hopefully with her appetite improved and being over the severity of her critical illness her hemoglobin will stabilize. (2) Paroxysmal atrial fibrillation with rapid ventricular response Is this a current diagnosis for this admission?: Yes Summary: The patient was in sinus rhythm during the initial part of her stay. 2 days ago it was noted that she was in atrial fibrillation and in fact had a rapid ventricular response. She had been on metoprolol 25 mg twice daily and nifedipine. I have changed her to metoprolol 50 mg twice daily and discontinue the nifedipine. Instead I started diltiazem 30 mg every 8 hours. This regimen has kept her in sinus rhythm with excellent rate control. She will remain on this regimen as an outpatient. I did provide prescriptions for both medications. She is not on long-term anticoagulation. In considering the risks versus the benefits in this 88-year-old patient who is severely compromised and bedbound, I felt that the benefits did not outweigh the risks and therefore she was not started on long-term anticoagulation. (3) Hypokalemia Is this a current diagnosis for this admission?: Yes Summary: The patient exhibited hypokalemia on admission. With a very small dose (10 mEq daily) her potassium has remained normal. Electrolytes will be followed by her primary care provider as an outpatient. (4) Hypomagnesemia Is this a current diagnosis for this admission?: Yes Summary: The patient's serum magnesium was low earlier in her stay. She did receive a supplement and her magnesium level has been stable since then without ongoing supplementation. I will defer management to her primary care provider as an outpatient. (5) Acute respiratory failure with hypoxia Is this a current diagnosis for this admission?: Yes Summary: Respiratory failure was due to likely aspiration pneumonia. She did have an infiltrate in her left lower lobe. She was on vancomycin and Zosyn. She did have a positive urine culture for Pseudomonas. There was no bacteria isolated from a sputum specimen. She did receive a 7-day course of vancomycin and Zosyn. Because her white count is slightly higher than normal at the time of admission I have prescribed Augmentin twice daily for 7 additional days. This has good coverage for typical bacteria involved in aspiration. (6) Left lower lobe pneumonia Is this a current diagnosis for this admission?: Yes (7) Cystitis due to Pseudomonas Is this a current diagnosis for this admission?: Yes Summary: The patient had a positive urine culture for pseudomonas aeruginosa. She received 7 days of Zosyn therapy. No further evidence of cystitis. (8) Dysphagia Is this a current diagnosis for this admission?: Yes Summary: This is baseline for this patient. At home she remains on nectar thick liquids. Her diet at discharge was pured foods with nectar thick liquids. (9) Protein-calorie malnutrition, severe Is this a current diagnosis for this admission?: Yes Summary: The patient BMI is only 16.2. She is bedbound. She has very low muscle mass. Caregivers do their best with regard to oral intake and protein supplements but this is not likely to change due to all of her comorbidities. (10) Seizure disorder Is this a current diagnosis for this admission?: Yes Summary: The patient did not exhibit any seizure-like activity. She was transitioned from IV Dilantin to short acting tablets 50 mg 3 times a day for ease of administration. She will return to her previous dose of the long-acting form. She takes 100 mg in the morning and 160 mg at night. Monitoring of Dilantin levels per her primary care provider. (11) Essential hypertension Is this a current diagnosis for this admission?: Yes Summary: The patient's blood pressure was labile during her stay. Initially there were low blood pressures and her hydralazine was ordered on a as needed basis. As her oral intake improved I resumed her hydralazine at 25 mg 4 times a day initially. As her pressure increased I returned to a total of 200 mg a day given as 50 mg every 6 hours. Her diastolic pressure is always low. Her systolic pressure is quite variable/ labile. I am hoping that the increased dose of metoprolol as well as changing to diltiazem exert better control. I will defer to her primary care provider for additional changes or additions to her medication regimen. - Additional Information Resuscitation Status: Do Not Resuscitate Discharge Diet: Other (Comments) - Puree with nectar thick liquids Discharge Activity: Bedrest Prescriptions: Amox Tr/Potassium Clavulanate [Augmentin 875-125 mg Tablet] 1 tab PO BID 7 Days #14 tablet Diltiazem HCl [Cardizem 30 mg Tablet] 30 mg PO Q8 30 Days #90 tablet Hydralazine HCl [Apresoline 25 mg Tablet] 50 mg PO Q6 30 Days #120 tablet Metoprolol Tartrate [Lopressor 50 mg Tablet] 50 mg PO Q12H #60 tablet Potassium Chloride [K-Tab ER] 10 meq PO DAILY 30 Days #30 tablet.er Home Medications: Aspirin/Dipyridamole [Aggrenox 25 mg-200 mg Capsule] 1 each PO Q12 11/26/16 Atorvastatin Calcium [Lipitor 20 mg Tablet] 20 mg PO QHS 11/26/16 Cyanocobalamin (Vitamin B-12) [Vitamin B12] 2,500 mcg PO QAM 11/26/16 Donepezil HCl [Aricept 5 mg Tablet] 5 mg PO QHS 11/26/16 Escitalopram Oxalate [Lexapro 10 mg Tablet] 10 mg PO DAILY 11/26/16 Memantine HCl [Namenda 10 mg Tablet] 10 mg PO BID 11/26/16 Phenytoin Sodium Extended [Dilantin 100 mg Capsule.er] 100 mg PO Q12 11/26/16 Phenytoin Sodium Extended [Dilantin] 60 mg PO QHS 11/26/16 Amox Tr/Potassium Clavulanate [Augmentin 875-125 mg Tablet] 1 tab PO BID 7 Days #14 tablet 06/08/18 Diltiazem HCl [Cardizem 30 mg Tablet] 30 mg PO Q8 30 Days #90 tablet 06/08/18 Hydralazine HCl [Apresoline 25 mg Tablet] 50 mg PO Q6 30 Days #120 tablet Metoprolol Tartrate [Lopressor 50 mg Tablet] 50 mg PO Q12H #60 tablet 06/08/18 Potassium Chloride [K-Tab ER] 10 meq PO DAILY 30 Days #30 tablet.er 06/08/18 History of Present Illness Patient complains of: The family noticed significant decline prior to admission. There were noticed changes in breathing and overall status. She was transferred to the emergency department and subsequently admitted. History of Present Illness: GISELLE PUTNAM is a 88 year old female Hospital Course Hospital Course: As outlined above Physical Exam Vital Signs: Temp Pulse Resp BP Pulse Ox 98.3 F 75 16 148/59 H 96 06/08/18 07:51 06/08/18 08:15 06/08/18 08:15 06/08/18 07:51 06/08/18 08:15 Intake & Output 06/07/18 06/08/18 06/09/18 06:59 06:59 06:59 Intake Total 440 825 Balance 440 825 Weight 42.7 kg 42.8 kg General appearance: PRESENT: no acute distress, thin - And quite frail Eye exam: PRESENT: conjunctiva pale. ABSENT: scleral icterus Mouth exam: PRESENT: moist Neck exam: ABSENT: carotid bruit, JVD, lymphadenopathy Respiratory exam: PRESENT: clear to auscultation martita, tachypnea - She was slightly tachypneic this morning. She was laying flat on her right side. Typically have seen her in the upright position and her breathing has been normal., unlabored. ABSENT: prolonged expiratory phas, rales, rhonchi, wheezes Cardiovascular exam: PRESENT: RRR, +S1, +S2 GI/Abdominal exam: PRESENT: normal bowel sounds, soft. ABSENT: distended, guarding, tenderness Extremities exam: ABSENT: calf tenderness, pedal edema Musculoskeletal exam: PRESENT: other - Marked loss of muscle mass Neurological exam: PRESENT: alert, awake, aphasic Psychiatric exam: PRESENT: flat affect. ABSENT: agitated Focused psych exam: ABSENT: restlessness Skin exam: PRESENT: petechiae - Upper extremities Results Laboratory Results: 06/08/18 08:35 06/07/18 04:25 06/07/18 06/07/18 06/08/18 10:25 18:15 08:35 WBC 14.8 H 16.0 H RBC 3.45 L 3.21 L Hgb 11.6 L D 10.8 L Hct 34.3 L 31.5 L MCV 99 H D 98 H MCH 33.5 H 33.6 H MCHC 33.7 34.2 RDW 16.2 H 16.3 H Plt Count 246 240 Seg Neutrophils % 68.6 Lymphocytes % 17.0 Monocytes % 10.5 Eosinophils % 3.5 Basophils % 0.4 Absolute Neutrophils 10.2 H Absolute Lymphocytes 2.5 Absolute Monocytes 1.6 H Absolute Eosinophils 0.5 Absolute Basophils 0.1 Blood Type O POSITIVE Antibody Screen NEGATIVE Impressions: Chest X-Ray 06/01/18 09:03 IMPRESSION: COPD. Left basilar pneumonia. Head CT 06/01/18 09:05 IMPRESSION: 1. Chronic changes of atrophy and old right MCA infarct. No acute intracranial abnormality. EVIDENCE OF ACUTE STROKE: NO. Qualifiers - * PATIENT BEING DISCHARGED WITH ANY OF THE FOLLOWING DIAGNOSIS: No Plan Discharge Plan: The patient will be discharged home as noted above. Antibiotics will be extended. Due to her frailty and high risk of aspiration as well as the 2 admissions recently I have opted to give her another week of antibiotic coverage. She has private duty help at home and they have been here through her entire stay. They will continue at home after discharge. Time Spent: Greater than 30 Minutes
== END 2018-06-08 12:22 | disposition home health service (06) | DRG 871 ==
LOC: ER 08:54 → EH 11:04 → 3W 12:57
PROVIDERS: ADMIT Internal Medicine; ATTEND Internal Medicine
PROC: 5A09457 Assistance with Respiratory Ventilation, 24-96 Consecutive Hours, Continuous Positive Airway Pressure (ICD-10-PCS; 2018-06-01)
PROC: 30233N1 Transfusion of Nonautologous Red Blood Cells into Peripheral Vein, Percutaneous Approach (ICD-10-PCS; principal; 2018-06-07)
DX: A41.52 Sepsis due to Pseudomonas (principal); J69.0 Pneumonitis due to inhalation of food and vomit; J96.01 Acute respiratory failure with hypoxia; E43 Unspecified severe protein-calorie malnutrition; Z68.1 Body mass index [BMI] 19.9 or less, adult; N30.90 Cystitis, unspecified without hematuria; B96.5 Pseudomonas (aeruginosa) (mallei) (pseudomallei) as the cause of diseases classified elsewhere; I48.0 Paroxysmal atrial fibrillation; G40.909 Epilepsy, unspecified, not intractable, without status epilepticus; I10 Essential (primary) hypertension; M19.90 Unspecified osteoarthritis, unspecified site; F41.9 Anxiety disorder, unspecified; F32.9 Major depressive disorder, single episode, unspecified; E78.5 Hyperlipidemia, unspecified; G30.1 Alzheimer's disease with late onset; F02.80 Dementia in other diseases classified elsewhere, unspecified severity, without behavioral disturbance, psychotic disturbance, mood disturbance, and anxiety; R47.02 Dysphasia; Z66 Do not resuscitate; Z99.3 Dependence on wheelchair; Z87.440 Personal history of urinary (tract) infections; E87.6 Hypokalemia; E83.42 Hypomagnesemia; Z86.73 Personal history of transient ischemic attack (TIA), and cerebral infarction without residual deficits; Z74.01 Bed confinement status; D63.8 Anemia in other chronic diseases classified elsewhere; Z82.3 Family history of stroke; Z82.49 Family history of ischemic heart disease and other diseases of the circulatory system; Z90.710 Acquired absence of both cervix and uterus; Z85.3 Personal history of malignant neoplasm of breast
CPT/HCPCS: 36415; 36430; 36600; 70450; 71045; 80048; 80053; 80185; 81001; 82272; 82803; 82962; 83605; 83735; 84484; 85025; 85027; 86850; 86900; 86901; 86920; 87040; 87086; 87088; 87186; 93005; 93010; 94640; 94660; 96365; 99291; 99292; G8996-GN; G8997-GN; G8998-GN; J0360; J0696; J1165; J1644; J1650; J2543; J3370; J3475; J3480; J3490; J7030; J7620; P9016; S0164

== ENCOUNTER 2018-07-17 16:20 | Emergency (ER) | payer MEDICARE ==
[2018-07-17 17:13] LABS: VENOUS BLOOD BASE EXCESS 0.6 mmol/L; VENOUS BLOOD HCO3 26.7 mmol/L (20-32); VENOUS BLOOD PCO2 46.9 mmHg (35-63); VENOUS BLOOD PH 7.37 (7.30-7.42)
[2018-07-17 17:14] LABS: ABSOLUTE EOSINOPHILS # (AUTO) 0.2 10^3/uL (0.0-0.6); ABSOLUTE LYMPHOCYTES (AUTO) 2.9 10^3/uL (0.5-4.7); ABSOLUTE MONOCYTES (AUTO) 1.1 10^3/uL (0.1-1.4); ABSOLUTE NEUT (AUTO) 14.9 10^3/uL (1.7-8.2); BASOPHILS % (AUTO) 0.2 % (0-2); EOSINOPHILS % (AUTO) 1.1 % (0-6); HEMATOCRIT 37.4 % (36.0-47.0); LYMPHOCYTES % (AUTO) 15.4 % (13-45); MEAN CORPUSCULAR HEMOGLOBIN 33.3 pg (27.0-33.4); MEAN CORPUSCULAR VOLUME 104 fl (80-97); MONOCYTES % (AUTO) 5.8 % (3-13); PLATELET COUNT 254 10^3/uL (150-450); RED CELL DISTRIBUTION WIDTH 16.8 % (11.5-14.0); SEGMENTED NEUTROPHILS % (AUTO) 77.5 % (42-78); TOTAL CELLS COUNTED % (AUTO) 100 %; WHITE BLOOD COUNT 19.2 10^3/uL (4.0-10.5)
[2018-07-17] MEDS ORDERED: IPRATROPIUM/ALBUTEROL 0.5-2.5 MG/3 ML AMPUL NEB ONE (17:15)
[2018-07-17] MEDS ORDERED: NORMAL SALINE 1000 ML 1,000 ML IV ONE (17:18)
--- NOTE | 2018-07-17 17:18 | ER Document Report ---
ED General - General Chief Complaint: Chest Congestion Stated Complaint: DIFFICULTY BREATHING Time Seen by Provider: 07/17/18 16:29 Mode of Arrival: Medic Information source: Friend, Emergency Med Personnel Cannot obtain history due to: Dementia Notes: 88-year-old female with dementia, hypertension, hyperlipidemia, previous CVA who is nonverbal, bedbound presents via EMS with her caretakers who were concerned for an episode of shortness of breath. Caregivers report that the patient was eating earlier when suddenly she began coughing and she appeared to be gasping for air. They deny any recent illness, hospitalizations, fever, vomiting, diarrhea. TRAVEL OUTSIDE OF THE [place] IN LAST 30 DAYS: No - HPI Onset: Just prior to arrival Onset/Duration: Sudden Associated symptoms: Nonproductive cough, Shortness of breath - Related Data Allergies/Adverse Reactions: No Known Allergies Allergy (Verified 06/01/18 09:17) Past Medical History - General Information source: Friend, [facility] Records - Social History Smoking Status: Former Smoker Frequency of alcohol use: None Drug Abuse: None Lives with: Alone - With 24-hour healthcare coverage Family History: CVA, Hypertension Patient has suicidal ideation: No Patient has homicidal ideation: No - Past Medical History Cardiac Medical History: Reports: Hx Hypercholesterolemia, Hx Hypertension, Hx Heart Murmur - Mitral valve prolapse Denies: Hx Congestive Heart Failure, Hx DVT, Hx Heart Attack, Hx Pulmonary Embolism Pulmonary Medical History: Denies: Hx Asthma, Hx COPD Neurological Medical History: Reports: Hx Cerebrovascular Accident, Hx Seizures - One episode 2012 or 2013. Endocrine Medical History: Denies: Hx Diabetes Mellitus Type 1, Hx Diabetes Mellitus Type 2, Hx Hyperthyroidism, Hx Hypothyroidism Renal/ Medical History: Denies: Hx Peritoneal Dialysis Malignancy Medical History: Reports: Hx Breast Cancer - Status post lumpectomy for same GI Medical History: Denies: Hx Cirrhosis, Hx Gastroesophageal Reflux Disease, Hx Hepatitis Musculoskeletal Medical History: Reports Hx Arthritis Psychiatric Medical History: Reports: Hx Anxiety, Hx Dementia, Hx Depression Infectious Medical History: Denies: Hx Hepatitis Past Surgical History: Reports: Hx Breast Surgery - Lumpectomy for breast carcinoma., Hx Hysterectomy, Other - Excision of facial skin lesions. - Immunizations Hx Diphtheria, Pertussis, Tetanus Vaccination: Yes - 2009 Hx Pneumococcal Vaccination: 03/22/16 Review of Systems - Review of Systems -: Yes ROS unobtainable due to patient's medical condition Constitutional: denies: Fever Respiratory: Cough Gastrointestinal: denies: Diarrhea, Vomiting Genitourinary: denies: Retention Physical Exam - Vital signs Vitals: Pulse Ox 84 L 07/17/18 16:26 Interpretation: No: Tachycardic, Febrile - Notes Notes: PHYSICAL EXAMINATION: GENERAL: Frail, cachectic, nonverbal, contracted HEAD: Atraumatic, normocephalic. EYES: Pupils equal round and reactive to light, extraocular movements intact, conjunctiva are normal. ENT: Nares patent, oropharynx clear without exudates. Moist mucous membranes. NECK: Normal range of motion, supple without lymphadenopathy LUNGS: Diminished breath sounds in the left lower lung field. No accessory muscle use. HEART: Regular rate and rhythm without murmurs ABDOMEN: Soft, nontender, nondistended abdomen. No guarding, no rebound. No masses appreciated. Female : deferred Musculoskeletal: No movement of extremities. Significant contractures of all extremities. NEUROLOGICAL: AAO x0 PSYCH: Somnolent SKIN: Warm, Dry, normal turgor, no rashes or lesions noted. Course - Re-evaluation Re-evalutation: Laboratory 07/17/18 07/17/18 07/17/18 16:40 16:40 16:40 WBC 19.2 H RBC 3.60 L Hgb 12.0 Hct 37.4 MCV 104 H MCH 33.3 MCHC 32.0 RDW 16.8 H Plt Count 254 Seg Neutrophils % 77.5 Lymphocytes % 15.4 Monocytes % 5.8 Eosinophils % 1.1 Basophils % 0.2 Absolute Neutrophils 14.9 H Absolute Lymphocytes 2.9 Absolute Monocytes 1.1 Absolute Eosinophils 0.2 Absolute Basophils 0.0 VBG pH VBG pCO2 VBG HCO3 VBG Base Excess Sodium 162.6 H Potassium 4.1 Chloride 128 H Carbon Dioxide 27 Anion Gap 8 BUN 49 H Creatinine 0.83 Est GFR ( Amer) > 60 Est GFR (Non-Af Amer) > 60 Glucose 208 H Lactic Acid 1.5 Calcium 9.5 Total Bilirubin 0.1 L Direct Bilirubin 0.1 Neonat Total Bilirubin Not Reportable Neonat Direct Bilirubin Not Reportable Neonat Indirect Bili Not Reportable AST 85 H ALT 110 H Alkaline Phosphatase 118 Total Protein 7.1 Albumin 3.4 L Urine Color Urine Appearance Urine pH Ur Specific [place] Urine Protein Urine Glucose (UA) Urine Ketones Urine Blood Urine Nitrite Urine Bilirubin Urine Urobilinogen Ur Leukocyte Esterase Urine WBC (Auto) Urine RBC (Auto) Squamous Epi Cells Auto Urine Mucus (Auto) Urine Ascorbic Acid 07/17/18 07/17/18 16:40 17:25 WBC RBC Hgb Hct MCV MCH MCHC RDW Plt Count Seg Neutrophils % Lymphocytes % Monocytes % Eosinophils % Basophils % Absolute Neutrophils Absolute Lymphocytes Absolute Monocytes Absolute Eosinophils Absolute Basophils VBG pH 7.37 VBG pCO2 46.9 VBG HCO3 26.7 VBG Base Excess 0.6 Sodium Potassium Chloride Carbon Dioxide Anion Gap BUN Creatinine Est GFR ( Amer) Est GFR (Non-Af Amer) Glucose Lactic Acid Calcium Total Bilirubin Direct Bilirubin Neonat Total Bilirubin Neonat Direct Bilirubin Neonat Indirect Bili AST ALT Alkaline Phosphatase Total Protein Albumin Urine Color YELLOW Urine Appearance SLIGHTLY-CLOUDY Urine pH 5.0 Ur Specific [place] 1.024 Urine Protein NEGATIVE Urine Glucose (UA) NEGATIVE Urine Ketones NEGATIVE Urine Blood NEGATIVE Urine Nitrite NEGATIVE Urine Bilirubin NEGATIVE Urine Urobilinogen NEGATIVE Ur Leukocyte Esterase MODERATE H Urine WBC (Auto) 15 Urine RBC (Auto) 1 Squamous Epi Cells Auto <1 Urine Mucus (Auto) OCC Urine Ascorbic Acid 40 H Chest X-Ray 07/17/18 17:16 IMPRESSION: NO ACUTE RADIOGRAPHIC FINDING IN THE CHEST. Temp Pulse Resp BP Pulse Ox 91 25 H 166/67 H 91 L 07/17/18 16:47 07/17/18 19:01 07/17/18 19:00 07/17/18 19:01 88-year-old female with dementia, previous who is nonverbal, bedbound, cachectic and contracted presents via EMS with concern for respiratory distress just prior to arrival. Vital signs reviewed upon arrival and patient is afebrile, hypoxic. Patient has pain but does awake with verbal and tactile stimulation. She is without accessory muscle use, wheezing. She does have diminished breath sounds on the left which is likely secondary to effort. Patient was found to have a leukocytosis, urinalysis concerning for UTI. Patient is hyponatremic, dehydrated. At the bedside and states that they believe the patient and her son who is [employer] would prefer patient be treated medically at home. Patient is a DNR. She has poor quality of life and is an active. 07/17/18 20:13 Spoke to the patient's son Elmer Canseco and made him aware of his mother's decline. He stated that he has been expecting this for some time. Advised that family members should visit very well possible. She has a leukocytosis is significantly dehydrated and has evidence of a urinary tract infection. She did receive gentle hydration and IV antibiotics. Both the son and the caregivers believe that the patient would want to be home and not admitted to the hospital. Patient was discharged home in fair condition with Keflex. Both caregivers and son expressed understanding when told that patient is failing to thrive and that there a good possibility that she may pass soon. 07/18/18 02:12 - Vital Signs Vital signs: Temp Pulse Resp BP Pulse Ox 91 25 H 166/67 H 91 L 07/17/18 16:47 07/17/18 19:01 07/17/18 19:00 07/17/18 19:01 - Laboratory Result Diagrams: 07/17/18 16:40 07/17/18 16:40 Laboratory results interpreted by me: 07/17/18 07/17/18 07/17/18 16:40 16:40 17:25 WBC 19.2 H RBC 3.60 L MCV 104 H RDW 16.8 H Absolute Neutrophils 14.9 H Sodium 162.6 H Chloride 128 H BUN 49 H Glucose 208 H Total Bilirubin 0.1 L AST 85 H ALT 110 H Albumin 3.4 L Ur Leukocyte Esterase MODERATE H Urine Ascorbic Acid 40 H - Diagnostic Test Radiology reviewed: Image reviewed, Reports reviewed Discharge - Discharge Clinical Impression: Dehydration Failure to thrive Qualifiers: Failure to thrive age range: in adult Qualified Code(s): R62.7 - Adult failure to thrive Dementia Qualifiers: Dementia type: unspecified type Dementia behavioral disturbance: with behavioral disturbance Qualified Code(s): F03.91 - Unspecified dementia with behavioral disturbance Urinary tract infection Qualifiers: Urinary tract infection type: site unspecified Hematuria presence: without hematuria Qualified Code(s): N39.0 - Urinary tract infection, site not specified Condition: Fair Disposition: HOME, SELF-CARE Instructions: Dehydration ([facility]), Dementia ([facility]), Urinary Tract Infection ([facility]) Additional Instructions: Your urine shows findings consistent with a urinary tract infection. Please take all the antibiotics as directed even if your symptoms have improved. Please follow-up with your primary care physician as needed. Return to emergency room if you develop fever >101F, persistent vomiting, become lethargic, have severe pain in your sides, or any other symptoms that are concerning to you. Prescriptions: Cephalexin Monohydrate [Keflex 250 mg/5 ml Susp] 500 mg PO BID 7 Days #140 ml Forms: Elevated Blood Pressure Referrals: DELISA MCLEAN MD [Primary Care Provider] - Follow up as needed
[2018-07-17 17:35] LABS: ALANINE AMINOTRANSFERASE 110 U/L (9-52); ALBUMIN 3.4 g/dL (3.5-5.0); ALKALINE PHOSPHATASE 118 U/L (38-126); ANION GAP 8 (5-19); ASPARTATE AMINO TRANSFERASE 85 U/L (14-36); BILIRUBIN,DIRECT 0.1 mg/dL (0.0-0.4); BILIRUBIN,TOTAL 0.1 mg/dL (0.2-1.3); BLOOD UREA NITROGEN 49 mg/dL (7-20); CALCIUM 9.5 mg/dL (8.4-10.2); CARBON DIOXIDE 27 mmol/L (22-30); CHLORIDE 128 mmol/L (98-107); GLUCOSE 208 mg/dL (75-110); POTASSIUM 4.1 mmol/L (3.6-5.0); SODIUM 162.6 mmol/L (137-145); TOTAL PROTEIN 7.1 g/dL (6.3-8.2)
--- NOTE | 2018-07-17 17:42 | RADIOLOGY REPORT (SQ) ---
EXAM DESCRIPTION: CHEST SINGLE VIEW COMPLETED DATE/TIME: 07/17/2018 5:32 pm REASON FOR STUDY: sob COMPARISON: 06/01/2018 EXAM PARAMETERS: NUMBER OF VIEWS: One view. TECHNIQUE: Single frontal radiographic view of the chest acquired. RADIATION DOSE: NA LIMITATIONS: None. FINDINGS: LUNGS AND PLEURA: No opacities, masses or pneumothorax. No pleural effusion. MEDIASTINUM AND HILAR STRUCTURES: No masses. Contour normal. HEART AND VASCULAR STRUCTURES: Heart normal in size. Normal vasculature. BONES: No acute findings. HARDWARE: None in the chest. OTHER: Prominent skin fold on the left. IMPRESSION: NO ACUTE RADIOGRAPHIC FINDING IN THE CHEST. TECHNICAL DOCUMENTATION: JOB ID: [id number] [employer]- All Rights Reserved Reading location - IP/workstation name: [email or web address]
[2018-07-17 17:44] LABS: APPEARANCE,URINE SLIGHTLY-CLOUDY; BILIRUBIN,URINE NEGATIVE (NEGATIVE); COLOR,URINE YELLOW; GLUCOSE, URINE NEGATIVE (NEGATIVE); KETONES,URINE NEGATIVE (NEGATIVE); LEUKOCYTE ESTERASE,URINE MODERATE (NEGATIVE); NITRITE,URINE NEGATIVE (NEGATIVE); PROTEIN,URINE NEGATIVE (NEGATIVE); URINE SPECIFIC GRAVITY 1.024; UROBILINOGEN,URINE NEGATIVE mg/dL (<2.0)
[2018-07-17 19:03] VITALS: BP 166/67
[2018-07-17] MEDS ORDERED: CEFTRIAXONE 1 GM/D5W RTU 1 GM/50 ML RTUPB IV ONE (19:11)
[2018-07-17] MEDS ORDERED: NORMAL SALINE 500 ML IV ONE (19:13)
== END 2018-07-17 21:15 | disposition home or self-care (01) ==
LOC: ER 16:20
DX: N39.0 Urinary tract infection, site not specified (principal); E87.1 Hypo-osmolality and hyponatremia; E86.0 Dehydration; R62.7 Adult failure to thrive; F03.91 Unspecified dementia, unspecified severity, with behavioral disturbance; I10 Essential (primary) hypertension; R05 Cough; R09.02 Hypoxemia; Z87.891 Personal history of nicotine dependence; Z74.01 Bed confinement status; Z85.3 Personal history of malignant neoplasm of breast; Z66 Do not resuscitate
CPT/HCPCS: 94640; 99285; 96361; 96365; 96366; 36415; 87040; 85025; 80053; 81001; 82803; 83605; 71045; J7030; J7040; J0696; A9270; J7620